=== PATIENT | female | born 1935 | race Caucasian/White ===

== ENCOUNTER 2017-07-21 11:37 | Observation (INO) ==
--- NOTE | 2017-07-21 12:03 | Emergency Department Note ---
Disposition Clinical Impression: Anemia Qualifiers: Anemia type: unspecified type Qualified Code(s): D64.9 - Anemia, unspecified GI bleed Qualifiers: GI bleed type/associated pathology: unspecified gastrointestinal hemorrhage type Qualified Code(s): K92.2 - Gastrointestinal hemorrhage, unspecified Disposition: Admitted As Inpatient Condition: Fair Time of Disposition: 16:01 GI Bleed HPI - General Chief complaint: ED Abdominal Pain Stated complaint: GI Bleed Time Seen by Provider: 07/21/17 11:47 Source: patient Limitations: no limitations Nursing Notes Reviewed: Yes Vital Signs Reviewed: Yes - History of Present Illness HPI Narrative: Mrs. Blackman, an 81yo female, presents from home [place] oncology clinic for evaluation of bright red blood in her ostomy bag. This began 4 days ago with melena and progressed gradually to now bright red blood mixed with stool. She is symptomatic with increased fatigue and mild dyspnea with exertion. She denies any other symptoms at this time. ROS: Positive: As above Negative:No chest pain, fever, chills, abdominal pain, nausea, vomiting. Complex PMH: 2012 Colon cancer 2012 high grade colononic obstruction secondary to colon cancer. Resected with ostomy placed. 201213 grade 3 breast cancer and subsequent lumpectomy with sentinel node biopsy. Partial chemo with completed radiation. Chemo stopped as it contributed to CA with stent. repeat cononoscopy revealed low lying rectal cancer. with endoscopic resection involving sphincter 05/2014 at [facility], Dr. Bee. 08/2016 ZANDER, BSO at [facility] secondary to mets of rectal cancer. 06/20/17 (TODAY) Port removed Cardiology (Dr. 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 No hx diverticulitis, gastric ulcer, duodenal ulcer. - Related Data Home Medications Medication Instructions Recorded Confirmed Cholecalciferol (Vitamin D3) 1,000 unit PO DAILY 02/13/15 07/21/17 [Vitamin D3] Cinnamon Bark [Cinnamon] 1,000 mg PO DAILY 02/13/15 07/21/17 Cyanocobalamin (Vitamin B-12) 100 mcg PO DAILY 02/13/15 07/21/17 [Vitamin B-12] Flaxseed Oil 1,000 mg PO BID 02/13/15 07/21/17 Garlic 2,000 mg PO DAILY 02/13/15 07/21/17 Lisinopril [Zestril] 2.5 mg PO DAILY 02/13/15 07/21/17 Metoprolol XL (24 HR) Succ [Toprol 100 mg PO DAILY 02/13/15 07/21/17 XL] Aspirin [Adult Low Dose Aspirin EC] 81 mg PO DAILY 06/01/15 07/21/17 Levothyroxine [Synthroid] 25 mcg PO QAM 06/01/15 07/21/17 Calcium Carbonate [Calcium] 1,200 mg PO BID 03/17/16 07/21/17 Ferrous Sulfate 140 mg PO DAILY 03/17/16 07/21/17 Vitamin A Palmitate [Vitamin A] 10,000 unit PO DAILY 03/17/16 07/21/17 Fluticasone Propionate Nasal 2 spr NS DAILY PRN 06/09/16 07/21/17 [Flonase] Guaifenesin [Mucinex] 600 mg PO BID PRN 08/30/16 07/21/17 Previous Rx's Medication Instructions Recorded Furosemide [Lasix] 20 mg PO BID #60 tablet 05/02/16 Simvastatin [Zocor] 20 mg PO HS #90 tablet 06/15/16 Clopidogrel Bisulfate [Plavix] 75 mg PO DAILY #30 tablet 12/08/16 Digoxin [Lanoxin] 0.125 mg PO DAILY #30 tablet 12/08/16 Allergies Allergy/AdvReac Type Severity Reaction Status Date / Time diazepam [From Valium] Allergy Muscle Pain Verified 07/21/17 10:03 All systems ED: reviewed and negative except as stated. Review of Systems: As Per [facility] Past Medical History - Past Medical History Medical history: Reports: arthritis, atrial fibrillation, cancer, cardiomyopathy , CHF, coronary artery disease, hypertension, myocardial infarction, thyroid disease Surgical history: Reports: angioplasty/stent, breast surgery, cancer surgery, cholecystectomy, colostomy Psychiatric history: Reports: no psych history HOSPITAL AIDE history: Reports: no HOSPITAL AIDE history - Social History Smoking Status: Never smoker Smokeless Tobacco Status: No Alcohol use: Reports: none Drug use: Reports: none Physical Exam Vital Signs Reviewed General: Patient is alert, oriented, and in no acute distress. HEENT: No facial asymmetry. Head is normocephalic and atraumatic. PERRLA, EOMI. oral mucosa tacky. Trachea midline. Cardiovascular: Heart regular rate and rhythm without clicks, rubs, gallops, or murmurs. No JVD. PMI nondisplaced. Bilateral radial pulses 2/4 equal. No pedal edema. Respiratory: Symmetric chest rise with good respiratory effort. Bilateral breath sounds are clear without wheezing, crackles, or rhonchi. Abdomen: Bowel sounds present normoactive x-4 quadrants. Abdomen is soft, nondistended, and nontender. No organomegaly noted. Ostomy site in left lower quadrant is clean, pink with bag in place. Back contents show bright red blood mixed with gastric secretions. Musculoskeletal: Spontaneously moving all extremities. Neuro: Alert and oriented x4. Sensation light touch intact. Psych: Patient's affect is appropriate for situation. - General Limitations: no limitations General appearance: alert, in no apparent distress Course Course Narrative: Last EGD was May 2016 for biliary stent removal; no comments made as to gastric or duodenal ulcers at that time. In speaking with Rubén Alfonso at the cancer center notes her tumor markers normal (breast and rectal cancer) and she is otherwise doing well from an oncology stand point. Patient is anemic and symptomatic with vital signs stable within normal range. No concern for the need for transfusion at this time. Type and screen completed. CT abdomen and pelvis show no bowel obstruction or abdominal pelvic fluid collection. I discussed the patient with on-call endoscopy, Dr. Hudson, who agrees to follow the patient as consult. I discussed the patient with the admitting hospitalist who agrees to accept the patient with endoscopy following. Abdomen/Pelvis CT 07/21/17 13:26 IMPRESSION: No findings to suggest bowel obstruction. No abdominal or pelvic fluid collection. Right renal cysts which measure up to 7.0 x 5.7 cm. Mild intrahepatic biliary dilatation centrally. Common bowel duct stent in place extending from the proximal common bowel duct into the duodenum. D/ / Radha Guillaume MD / Radha Guillaume MD Interpreting Provider: Radha Guillaume MD Vital Signs Temperature 97.6 F 07/21/17 11:39 Pulse Rate 87 07/21/17 11:39 Respiratory Rate 18 07/21/17 11:39 Blood Pressure 134/76 07/21/17 11:39 O2 Sat by Pulse Oximetry 91 07/21/17 11:39 Temperature 97.6 F 07/21/17 11:39 Pulse Rate 87 07/21/17 11:39 Respiratory Rate 18 07/21/17 11:39 Blood Pressure 134/76 07/21/17 11:39 O2 Sat by Pulse Oximetry 91 07/21/17 11:39 Oxygen Delivery Oxygen Delivery Room Air GI Bleed - Medical Records Medical records reviewed: Yes I reviewed the patient's medical records. - Lab Data Lab results reviewed: Yes I reviewed the patient's lab results. Result diagrams: 07/21/17 15:51 07/21/17 12:40 Lab Results 07/21/17 07/21/17 07/21/17 Range/Units 11:14 12:40 12:40 WBC 6.4 (4.3-11.1) K/mcL RBC 4.16 (3.82-4.97) M/mcL Hgb 10.7 L (11.5-15.4) g/dL Hct 34.7 L (35.3-44.9) % MCV 83.4 (83.0-100.0) fL MCH 25.7 L (28.0-33.3) pg MCHC 30.8 L (31.6-35.5) g/dL RDW 15.4 H (11.5-14.5) % Plt Count 189 (140-400) K/mcL MPV 10.5 (9.4-12.4) fL Immature Gran % 0.5 (0-4) % Seg Neutrophils % 79.8 % Lymphocytes % 12.4 % Monocytes % 6.5 % Eosinophils % 0.3 % Basophils % 0.5 % Neutrophils # 5.1 (1.6-8.9) K/mcL Lymphocytes # 0.8 (0.6-4.6) K/mcL Monocytes # 0.4 (0.0-1.3) K/mcL Eosinophils # 0.0 (0.0-0.6) K/mcL Basophils # 0.0 (0.0-0.2) K/mcL PT 12.0 (9.4-12.1) Seconds INR 1.1 APTT 27.6 (26.0-36.0) Seconds Sodium (136-145) mEq/L Potassium (3.5-5.1) mEq/L Chloride (98-107) mEq/L Carbon Dioxide (23-29) mEq/L BUN (8-23) mg/dL Creatinine (0.60-1.20) mg/dL Est GFR ( Amer) (> 60) Est GFR (Non-Af Amer) (> 60) BUN/Creatinine Ratio (6-26) Glucose (70-105) mg/dL Calculated Osmolality (280-300) Calcium (8.6-10.3) mg/dL Troponin I (< 0.04) ng/mL Blood Type O POSITIVE Antibody Screen NEGATIVE 07/21/17 07/21/17 Range/Units 12:40 12:40 WBC (4.3-11.1) K/mcL RBC (3.82-4.97) M/mcL Hgb (11.5-15.4) g/dL Hct (35.3-44.9) % MCV (83.0-100.0) fL MCH (28.0-33.3) pg MCHC (31.6-35.5) g/dL RDW (11.5-14.5) % Plt Count (140-400) K/mcL MPV (9.4-12.4) fL Immature Gran % (0-4) % Seg Neutrophils % % Lymphocytes % % Monocytes % % Eosinophils % % Basophils % % Neutrophils # (1.6-8.9) K/mcL Lymphocytes # (0.6-4.6) K/mcL Monocytes # (0.0-1.3) K/mcL Eosinophils # (0.0-0.6) K/mcL Basophils # (0.0-0.2) K/mcL PT (9.4-12.1) Seconds INR APTT (26.0-36.0) Seconds Sodium 137 (136-145) mEq/L Potassium 3.9 (3.5-5.1) mEq/L Chloride 102 (98-107) mEq/L Carbon Dioxide 30 H (23-29) mEq/L BUN 22 (8-23) mg/dL Creatinine 0.82 (0.60-1.20) mg/dL Est GFR ( Amer) > 60 (> 60) Est GFR (Non-Af Amer) > 60 (> 60) BUN/Creatinine Ratio 27 H (6-26) Glucose 105 (70-105) mg/dL Calculated Osmolality 288 (280-300) Calcium 8.9 (8.6-10.3) mg/dL Troponin I < 0.03 (< 0.04) ng/mL Blood Type Antibody Screen - EKG Data EKG attestation: Yes I reviewed and interpreted this EKG. EKG results narrative: EKG dated to July 2017 at 12:12 interpreted as atrial fibrillation with a rate of 65. Left axis. T-wave inversions in leads V1 through V4 present on comparison EKG. Compared to previous EKG dated 06/02/2016 showing no acute ischemic changes or comparison. Attestation Statement - Attestation Attestation: I, Christopher Thrasher, examined this patient and my medical decision-making was reviewed with the SIGN LANGUAGE TRANSLATOR/PA/Advanced Practice Nurse/Resident Physician. I agree with the documented findings, disposition and treatment plan as described except to the extent set forth below. 81-year-old female presents emergency Department with concerns of GI bleeding. Patient states she has had a complicated medical history with multiple surgeries on her abdomen including cholecystectomy with retained stone which required stenting, total abdominal hysterectomy, colon resection after finding a large tumor with bowel obstruction. Patient has noticed increasing amounts of dark stool in her ostomy pouch which then progressed to bright red blood. Patient is more anemic than her previous laboratory values. Resident spoke with the endoscopist, Dr. Hudson, who felt comfortable with the plan for admission to the hospital and likely endoscopy. Patient was admitted to the hospitalist for further care and evaluation. Vital signs stable prior to admission.
[2017-07-21 12:50] LABS: Basophils % 0.5 %; Eosinophils % 0.3 %; Hematocrit 34.7 % (35.3-44.9); Hemoglobin 10.7 g/dL (11.5-15.4); Immature Granulocytes % 0.5 % (0-4); Lymphocytes # 0.8 K/mcL (0.6-4.6); Lymphocytes % 12.4 %; Mean Corpuscular HGB Conc 30.8 g/dL (31.6-35.5); Mean Corpuscular Hemoglobin 25.7 pg (28.0-33.3); Mean Corpuscular Volume 83.4 fL (83.0-100.0); Mean Platelet Volume 10.5 fL (9.4-12.4); Monocytes # 0.4 K/mcL (0.0-1.3); Monocytes % 6.5 %; Neutrophils # 5.1 K/mcL (1.6-8.9); Platelet Count 189 K/mcL (140-400); Red Blood Count 4.16 M/mcL (3.82-4.97); Red Cell Distribution Width 15.4 % (11.5-14.5); Segmented Neutrophils % 79.8 %
[2017-07-21 12:55] LABS: INR 1.1
[2017-07-21] MEDS: Pantoprazole 40 MG VIAL IVP ONE ×2 (12:55→16:39)
[2017-07-21 12:58] LABS: Activated Partial Thrombo Time 27.6 Seconds (26.0-36.0)
[2017-07-21 13:12] LABS: BUN/Creatinine Ratio 27 (6-26); Blood Urea Nitrogen 22 mg/dL (8-23); Calcium 8.9 mg/dL (8.6-10.3); Carbon Dioxide 30 mEq/L (23-29); Chloride 102 mEq/L (98-107); Glucose 105 mg/dL (70-105); Osmolality,Calculated 288 (280-300); Potassium 3.9 mEq/L (3.5-5.1); Sodium 137 mEq/L (136-145); eGFR For African Americans > 60 (> 60); eGFR For Non-African Americans > 60 (> 60)
[2017-07-21] MEDS ORDERED: Acetaminophen 325 MG TABLET PO PRN (15:12)
[2017-07-21] MEDS ORDERED: Naloxone 0.4 MG/ML INJ IVP PRN (15:12)
[2017-07-21] MEDS ORDERED: Fluticasone Propionate Nasal 50 MCG/SPRAY BOTTLE NS PRN (15:22)
--- NOTE | 2017-07-21 15:34 | Internal Med History&Physical ---
Date of Encounter: 07/21/17 Time of Encounter: 14:15 Assessment and Plan (1) GI bleed Current visit: Yes Status: Acute Acute GI bleeding that began on Monday and has worsened. Pt. reports primarily dark blood early on w/bright blood now. Denies previous occurrence. Pt. has hx of colon and rectal cancer that resulted in current ostomy bag and removal of rectum, anus, and female organs. Cancer considered resolved according to pt. and daughter. Hgb 11.5 and Hct 36.1 on admission, now 10.7 and 34.7. Was 13.7 and 42.6 on 06/27/17. Surgery consult ordered and discussed w/Dr. Hudson in ED and I appreciate the consult. Pt. typed and screened (O positive w/negative antibody screen). H/H Q6HR. NPO except medications. Falls/safety precautions d/ t weakness. Continuous cardiac telemetry. Supplemental O2 w/titration and SpO2 monitoring PRN. Cardiology consult ordered and discussed with Dr. Pichardo for recommendations for continuation/discontinuation of pts. Plavix and aspirin and I appreciate the consult. Bilateral SCDs on LEs for DVT prophylaxis. Protonix drip. Pt. discussed w/Dr. Silva who is in agreement w/plan of care. Pt. high risk for further morbidity d/t current GI bleeding, weakness, hx and risk factors of cardiac-related issues and previous cancer. Inpatient. Qualifiers: GI bleed type/associated pathology: unspecified gastrointestinal hemorrhage type Qualified Code(s): K92.2 - Gastrointestinal hemorrhage, unspecified (2) Fatigue Current visit: Yes Status: Acute Acute fatigue and weakness d/t current blood loss. Hgb 10.7 and Hct 34.7 now, down from 11.5 and 36.1 earlier on admission today. Falls/safety precautions, up with assist, and bed rest w/bathroom privileges w/assist only. PT/OT consults ordered to assess patient's ambulation strength, stability, and safety. Qualifiers: Fatigue type: other Qualified Code(s): R53.83 - Other fatigue (3) Renal cyst Current visit: Yes Status: Acute Acute renal cyst. CT of the abdomen/pelvis today shows right renal cysts which measure up to 7.0 x 5.7 cm. F/u w/PCP post-discharge. (4) Anemia Current visit: Yes Status: Acute Acute anemia. Hgb 10.7 and Hct 34.7 now, down from 11.5 and 36.1 today and 13.7 and 42.6 on 06/27/17. Pt. typed and screened (O Positive w/negative antibody screen). H/H Q6HR. Qualifiers: Anemia type: unspecified type Qualified Code(s): D64.9 - Anemia, unspecified (5) CHF (congestive heart failure) Current visit: Yes Status: Chronic Hx of chronic CHF. Stable. Qualifiers: Congestive heart failure type: unspecified Congestive heart failure chronicity: unspecified Qualified Code(s): I50.9 - Heart failure, unspecified (6) CAD (coronary artery disease) Current visit: Yes Status: Chronic Hx of chronic CAD w/MA in 2013 resulting in stent placement x1. Continue lisinopril, metoprolol, and Plavix. Continue cardiac telemetry. Cardiology consult ordered for recommendations on pts. current Plavix and aspirin therapy d /t current bleeding. Qualifiers: Coronary Disease-Associated Artery/Lesion type: [place] artery [place] vs. transplanted heart: [place] heart Associated angina: angina presence unspecified Qualified Code(s): I25.10 - Atherosclerotic heart disease of [place] coronary artery without angina pectoris (7) HTN (hypertension) Current visit: Yes Status: Chronic Hx of chronic HTN. Monitor pt. and VS. Continue patient's lisinopril and metoprolol. Qualifiers: Hypertension type: essential hypertension Qualified Code(s): I10 - Essential (primary) hypertension (8) Thyroid disease Current visit: Yes Status: Chronic Hx of chronic thyroid disease. Free T4 and TSH in a.m. labs. Continue pts. Synthroid. (9) Afib Current visit: Yes Status: Chronic Hx of chronic atrial fibrillation. Pt. is currently only on aspirin. Will continue daily aspirin and monitor for increased bleeding. Continuous cardiac telemetry. Qualifiers: Atrial fibrillation type: chronic Qualified Code(s): I48.2 - Chronic atrial fibrillation (10) DVT prophylaxis Current visit: Yes Status: Acute Bilateral SCDs on pts. LEs for DVT prophylaxis d/t current GI bleeding and possible need for surgical intervention. Internal Medicine - H&P: HPI Chief complaint: Abdominal pain/GI bleeding Admitted From: Emergency Dept Plans for Post Hospital Care: Home History of present illness: Ms. Blackman is a 81 year old female with a history of atrial fibrillation, colon and rectal cancer, cardiomyopathy, CHF, CAD and hypertension, previous myocardial infarction in February 2014 with stent 1, and thyroid disease presents from the ED with chief complaint of abdominal pain and GI bleeding that began on Monday. Pt. reports small amount of dark blood on Monday which became worse on Monday and . Blood became brighter with more output mixed with stool today. Reports weakness and fatigue and shortness of breath. Patient denies recent illness, fever, chills, nausea, vomiting, headache, changes in vision, chest pain, cough, diarrhea, constipation, numbness, tingling , pre-syncope, or syncope. Past Med Surg Social Fam HX - Past Medical History Source: patient, old records reviewed, obtained from family Medical history: arthritis, atrial fibrillation, cancer, cardiomyopathy, CHF, coronary artery disease, hypertension, myocardial infarction (February 2014), thyroid disease Psychiatric history: no psych history - Past Surgical History Surgical History: angioplasty/stent (x1), breast surgery (Lumpectomy on right breast and right axilla), cancer surgery (Rectum, anus, and femur were considered removed at [facility] due to rectal cancer.), cholecystectomy, colostomy - Social History Smoking Status: Former smoker Packs per day: 1 PPD - Reports quitting 30 years ago Smokeless Tobacco Status: No Alcohol use: none Drug use: none Current living situation: Home, With Family Activity Level: Independent ambulation Recent Out of Country Travel Within the Last 8 Weeks: No Exposure or Possible Exposure to Illness During Travel: No - Family History Mother Race: Family Member Ethnicity: Non- Living Status: Age at : 80 Cause of : Bleeding internally Hx Family Cardiac Disorders: Yes (CHF) Hx Family Endocrine Disorder: Yes (Thyroid disease) Father Race: Family Member Ethnicity: Non- Living Status: Age at : 76 Cause of : Stroke Hx Family Cardiac Disorders: Yes (CAD, Strokes) Brother Race: Family Member Ethnicity: Non- Living Status: Age at : 79 Cause of : MA Hx Family Cardiac Disorders: Yes (MA, AICD) Sister History Unknown: Yes Race: Family Member Ethnicity: Non- Living Status: Internal Medicine - H&P: Meds Cholecalciferol (Vitamin D3) [Vitamin D3] 1,000 unit PO DAILY 02/13/15 [History] Cinnamon Bark [Cinnamon] 1,000 mg PO DAILY 02/13/15 [History] Cyanocobalamin (Vitamin B-12) [Vitamin B-12] 100 mcg PO DAILY 02/13/15 [History] Flaxseed Oil 1,000 mg PO BID 02/13/15 [History] Garlic 2,000 mg PO DAILY 02/13/15 [History] Lisinopril [Zestril] 2.5 mg PO DAILY 02/13/15 [History] Metoprolol XL (24 HR) Succ [Toprol XL] 100 mg PO DAILY 02/13/15 [History] Aspirin [Adult Low Dose Aspirin EC] 81 mg PO DAILY 06/01/15 [History] Levothyroxine [Synthroid] 25 mcg PO QAM 06/01/15 [History] Calcium Carbonate [Calcium] 1,200 mg PO BID 03/17/16 [History] Ferrous Sulfate 140 mg PO DAILY 03/17/16 [History] Vitamin A Palmitate [Vitamin A] 10,000 unit PO DAILY 03/17/16 [History] Furosemide [Lasix] 20 mg PO BID #60 tablet 05/02/16 [Rx] Fluticasone Propionate Nasal [Flonase] 2 spr NS DAILY PRN 06/09/16 [History] Simvastatin [Zocor] 20 mg PO HS #90 tablet 06/15/16 [Rx] Guaifenesin [Mucinex] 600 mg PO BID PRN 08/30/16 [History] Clopidogrel Bisulfate [Plavix] 75 mg PO DAILY #30 tablet 12/08/16 [Rx] Digoxin [Lanoxin] 0.125 mg PO DAILY #30 tablet 12/08/16 [Rx] 3 Allergy/AdvReac Type Severity Reaction Status Date / Time diazepam [From Valium] Allergy Muscle Pain Verified 07/21/17 10:03 All Systems PM: A 10-system review of systems was performed and is negative for pertinent findings except as documented above in the HPI. - Constitutional Constitutional: as per HPI, fatigue, weakness, no chills, no fever(s), no night sweats - EENT Eyes: no change in vision, no discharge, no pain, no photophobia Ears: no ear discharge, no ear pain, no tinnitus Nose, mouth and throat: no dysphagia, no nasal discharge, no neck pain, no sore throat - Breasts Breasts: as per HPI - Cardiovascular Cardiovascular ROS IM: as per HPI, dyspnea, dyspnea on exertion, irregular heart rhythm (Atrial fibrillation), no chest pain, no diaphoresis, no lightheadedness, no palpitations, no syncope - Respiratory Respiratory: as per HPI, dyspnea, dyspnea on exertion, no cough, no wheezing, no excessive phlegm production - Gastrointestinal Gastrointestinal: as per HPI, abdominal pain, hematochezia - Genitourinary Genitourinary: no change in urinary stream, no dysuria, no flank pain, no hematuria Menstruation: as per HPI - Musculoskeletal Musculoskeletal ROS IM: no numbness, no tingling - Integumentary Integumentary IM: no rash, no unusual bruising - Neurological Neurological ROS: as per HPI, dizziness, weakness, no confusion, no convulsions , no focal weakness, no numbness, no tingling, no tremor(s) - Psychiatric Psychiatric: as per HPI - Endocrine Endocrine IM: as per HPI - Hematologic/Lymphatic Hematologic/Lymphatic: easy bleeding (Since Monday into ostomy bag), no easy bruising - Allergic/Immunologic Allergic/Immunologic: as per HPI - Constitutional Vitals: Temp Pulse Resp BP Pulse Ox 97.6 F 87 18 134/76 91 07/21/17 11:39 07/21/17 11:39 07/21/17 11:39 07/21/17 11:39 07/21/17 11:39 General appearance: Present: cooperative, A&O X 3, pleasant, no acute distress, obese, answers questions appropriately - Head Head exam: Present: atraumatic, normocephalic - Eye Eye exam: Present: PERRL, conjuntiva pink, sclera anicteric Pupils: Present: PERRL - ENT ENT exam: Present: normal exam - Neck Neck exam general surgery: Present: normal inspection, supple, trachea midline. Absent: lymphadenopathy - Respiratory Respiratory exam: Present: CTAB. Absent: accessory muscle use, rales, rhonchi, wheezes - Cardiovascular Cardiovascular exam: Present: irregular rhythm (Atrial fibrillation) - GI/Abdominal GI/Abdominal exam: Present: normal bowel sounds, soft, tenderness, no peritoneal signs. Absent: distended - Rectal Rectal exam: Present: deferred - Additional comments: exam deferred. - Extremities Exam Extremities exam: Present: warm, radial pulses palpable and symmetrical. Absent : calf tenderness, cyanotic, pedal edema - Back Exam Back exam: Present: normal inspection - Neurological Exam Neurological exam: Present: CN II-XII intact, oriented X3, no focal deficits. Absent: pronater drift, facial droop, speech deficit - Psychiatric Psychiatric exam: Present: normal affect, normal mood - Skin Skin exam: Present: dry, intact, pallor Internal Med - H&P Results - Labs CBC & Chem 7: 07/21/17 15:51 07/21/17 12:40 - EKG Data Prior EKG available for review: yes When compared to previous EKG: there is no significant change EKG comments: 07/21/17 15:43 EKG dated 06/02/16 shows atrial fibrillation with aberrant conduction or ventricular premature complexes, left axis deviation, and right bundle branch block. EKG dated 07/21/17 shows atrial fibrillation with borderline left axis deviation and right bundle branch block. - Diagnostic Studies CT scan - pelvis Additional comments: Impressions Abdomen/Pelvis CT 07/21/17 13:26 IMPRESSION: No findings to suggest bowel obstruction. No abdominal or pelvic fluid collection. Right renal cysts which measure up to 7.0 x 5.7 cm. Mild intrahepatic biliary dilatation centrally. Common bowel duct stent in place extending from the proximal common bowel duct into the duodenum. D/ / Radha Guillaume MD / Radha Guillaume MD Interpreting Provider: Radha Guillaume MD
[2017-07-21 16:03] LABS: Hematocrit 34.5 % (35.3-44.9); Hemoglobin 10.9 g/dL (11.5-15.4)
[2017-07-21] MEDS ORDERED: Polyethylene Glycol 3350 255 GM POWDER PO ONE (16:17)
--- NOTE | 2017-07-21 16:23 | General Surgery Consult Note ---
Date of Encounter: 07/21/17 Time of Encounter: 16:00 Assessment and Plan (1) GI bleed Current Visit: Yes Status: Acute The patient had visible bleeding that turned to melena via the colostomy. She is currently on Plavix therapy she has no complaints of abdominal pain. I have recommended EGD and colonoscopy via the ostomy and we will proceed tomorrow after bowel prep. Qualifiers: GI bleed type/associated pathology: unspecified gastrointestinal hemorrhage type Qualified Code(s): K92.2 - Gastrointestinal hemorrhage, unspecified History of Present Illness Consult date: 07/21/17 Reason for consult: other (GI bleed) History of present illness: The patient has a complex oncology history. She has previously had successful treatment of triple negative breast cancer. She is also had very complex treatment of multicentric metachronous colorectal cancer. She had initial resection there was a T3 node negative tumor with an end colostomy. 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 This was initially treated with local excision but recurred a second time. She had a redo abdominal perineal resection along with total abdominal hysterectomy for this secondary rectal cancer. She has had myocardial infarction and coronary artery stent and is currently on Plavix. Her last coronary artery stent was 3 and half years ago. She now has developed melena from her colostomy bag. She initially noted bright red blood in this later became melanotic. She is admitted for evaluation of GI bleed on Plavix therapy. She is now more than 12 months out from her coronary artery stent in at be safe to stop her Plavix. Past Med Surg Social Fam HX - Past Medical History Medical history: arthritis, atrial fibrillation, cancer, cardiomyopathy, CHF, coronary artery disease, hypertension, myocardial infarction (February 2014), thyroid disease Psychiatric history: no psych history - Past Surgical History Surgical History: angioplasty/stent (x1), breast surgery (Lumpectomy on right breast and right axilla), cancer surgery (Rectum, anus, and femur were considered removed at [facility] due to rectal cancer.), cholecystectomy, colostomy - Social History Smoking Status: Former smoker Packs per day: 1 PPD - Reports quitting 30 years ago Smokeless Tobacco Status: No Alcohol use: none Drug use: none - Family History Brother Race: Family Member Ethnicity: Non- Living Status: Age at : 79 Cause of : PR Hx Family Cardiac Disorders: Yes (PR, AICD) Sister History Unknown: Yes Race: Family Member Ethnicity: Non- Living Status: Mother Race: Family Member Ethnicity: Non- Living Status: Age at : 80 Cause of : Bleeding internally Hx Family Cardiac Disorders: Yes (CHF) Hx Family Endocrine Disorder: Yes (Thyroid disease) Father Race: Family Member Ethnicity: Non- Living Status: Age at : 76 Cause of : Stroke Hx Family Cardiac Disorders: Yes (CAD, Strokes) Medications and Allergies Cholecalciferol (Vitamin D3) [Vitamin D3] 1,000 unit PO DAILY 02/13/15 [History] Cinnamon Bark [Cinnamon] 1,000 mg PO DAILY 02/13/15 [History] Cyanocobalamin (Vitamin B-12) [Vitamin B-12] 100 mcg PO DAILY 02/13/15 [History] Flaxseed Oil 1,000 mg PO BID 02/13/15 [History] Garlic 2,000 mg PO DAILY 02/13/15 [History] Lisinopril [Zestril] 2.5 mg PO DAILY 02/13/15 [History] Metoprolol XL (24 HR) Succ [Toprol XL] 100 mg PO DAILY 02/13/15 [History] Aspirin [Adult Low Dose Aspirin EC] 81 mg PO DAILY 06/01/15 [History] Levothyroxine [Synthroid] 25 mcg PO QAM 06/01/15 [History] Calcium Carbonate [Calcium] 1,200 mg PO BID 03/17/16 [History] Ferrous Sulfate 140 mg PO DAILY 03/17/16 [History] Vitamin A Palmitate [Vitamin A] 10,000 unit PO DAILY 03/17/16 [History] Furosemide [Lasix] 20 mg PO BID #60 tablet 05/02/16 [Rx] Fluticasone Propionate Nasal [Flonase] 2 spr NS DAILY PRN 06/09/16 [History] Simvastatin [Zocor] 20 mg PO HS #90 tablet 06/15/16 [Rx] Guaifenesin [Mucinex] 600 mg PO BID PRN 08/30/16 [History] Clopidogrel Bisulfate [Plavix] 75 mg PO DAILY #30 tablet 12/08/16 [Rx] Digoxin [Lanoxin] 0.125 mg PO DAILY #30 tablet 12/08/16 [Rx] 3 Allergy/AdvReac Type Severity Reaction Status Date / Time diazepam [From Valium] Allergy Muscle Pain Verified 07/21/17 10:03 Review of Systems All systems PM: A 10-system review of systems was performed and is negative for pertinent findings except as documented above in the HPI. General Surgery Exam Initial Vital Signs Temp Pulse Resp BP Pulse Ox 97.6 F 87 18 134/76 91 07/21/17 11:39 07/21/17 11:39 07/21/17 11:39 07/21/17 11:39 07/21/17 11:39 - General physical appearance well developed, well nourished, no distress - Neck no masses, no bruits, trachea midline, no lymphadectomy, no venous distension - Respiratory normal expansion, normal respiratory effort, clear to percussion, clear to auscultation - Cardiovascular Cardiovascular exam: Present: RRR, no murmurs/rubs/gallops - Abdomen Abdomen general surgery: Present: bowel sounds present, soft (Colostomy left upper quadrant), non tender - Psychiatric Psychiatric general surgery: Present: appropriate, oriented to person, oriented to place, oriented to time, speech is normal, memory intact Exam Initial Vital Signs Temp Pulse Resp BP Pulse Ox 97.6 F 87 18 134/76 91 07/21/17 11:39 07/21/17 11:39 07/21/17 11:39 07/21/17 11:39 07/21/17 11:39 Results - Labs 07/21/17 15:51 07/21/17 12:40 Abnormal lab results Hgb 10.9 g/dL (11.5-15.4) L 07/21/17 15:51 Hct 34.5 % (35.3-44.9) L 07/21/17 15:51 MCH 25.7 pg (28.0-33.3) L 07/21/17 12:40 MCHC 30.8 g/dL (31.6-35.5) L 07/21/17 12:40 RDW 15.4 % (11.5-14.5) H 07/21/17 12:40 Carbon Dioxide 30 mEq/L (23-29) H 07/21/17 12:40 BUN/Creatinine Ratio 27 (6-26) H 07/21/17 12:40 All other labs normal. Consult Discharge Plan - Plan Referrals: Amarilis Chi MD [Primary Care Provider] -
[2017-07-21] MEDS: Furosemide 20 MG TABLET PO SCH (17:48)
[2017-07-21] MEDS: Pantoprazole 40 MG in 0.9 % Sodium Chloride Mini Bag 100 ML IVC SCH ×2 (17:49→21:46)
--- NOTE | 2017-07-21 20:57 | Event Note ---
Date of Encounter: 07/21/17 Time of Encounter: 17:00 Discussed with BRIDGET and agree with assessment and plan Patient noted melena from her colostomy bag that was initially bright red blood Dr. Hudson consulted with recommendations for EGD and colonoscopy via the ostomy on 07/22/17
[2017-07-21 21:13] LABS: Hematocrit 36.1 % (35.3-44.9); Hemoglobin 11.5 g/dL (11.5-15.4)
[2017-07-22] MEDS: Pantoprazole 40 MG in 0.9 % Sodium Chloride Mini Bag 100 ML IVC SCH ×4 (03:23→20:25)
[2017-07-22 05:59] LABS: Basophils % 0.3 %; Eosinophils # 0.2 K/mcL (0.0-0.6); Hematocrit 32.7 % (35.3-44.9); Hemoglobin 10.1 g/dL (11.5-15.4); Immature Granulocytes % 0.3 % (0-4); Lymphocytes # 1.2 K/mcL (0.6-4.6); Lymphocytes % 19.3 %; Mean Corpuscular HGB Conc 30.9 g/dL (31.6-35.5); Mean Corpuscular Hemoglobin 25.7 pg (28.0-33.3); Mean Corpuscular Volume 83.2 fL (83.0-100.0); Mean Platelet Volume 10.8 fL (9.4-12.4); Monocytes # 0.6 K/mcL (0.0-1.3); Monocytes % 8.7 %; Neutrophils # 4.3 K/mcL (1.6-8.9); Platelet Count 179 K/mcL (140-400); Red Blood Count 3.93 M/mcL (3.82-4.97); Red Cell Distribution Width 15.4 % (11.5-14.5); Segmented Neutrophils % 68.4 %
[2017-07-22 06:07] LABS: Hemoglobin A1C 5.1 %
[2017-07-22 06:08] LABS: INR 1.1; Prothrombin Time 11.8 Seconds (9.4-12.1)
[2017-07-22 06:10] LABS: Activated Partial Thrombo Time 27.8 Seconds (26.0-36.0)
[2017-07-22 06:21] LABS: Alanine Aminotransferase 8 Units/L (7-52); Albumin 3.4 g/dL (3.5-5.7); Albumin/Globulin Ratio 1.8 (1.1-2.2); Alkaline Phosphatase 39 Units/L (34-104); Aspartate Amino Transferase 11 Units/L (13-39); BUN/Creatinine Ratio 19 (6-26); Bilirubin,Total 0.6 mg/dL (0.3-1.0); Blood Urea Nitrogen 14 mg/dL (8-23); Calcium 8.3 mg/dL (8.6-10.3); Carbon Dioxide 31 mEq/L (23-29); Chloride 108 mEq/L (98-107); Chol/HDL Ratio 2.7 (0-4.9); Cholesterol 108 mg/dL (< 200); Globulin 1.9 g/dL (2.4-3.5); Glucose 93 mg/dL (70-105); HDL Cholesterol 40 mg/dL (40-59); LDL Cholesterol,Calculated 45 mg/dL (0-99); Osmolality,Calculated 294 (280-300); Potassium 3.4 mEq/L (3.5-5.1); Sodium 142 mEq/L (136-145); Total Protein 5.3 g/dL (6.4-8.9); Triglycerides 116 mg/dL (< 150); eGFR For African Americans > 60 (> 60); eGFR For Non-African Americans > 60 (> 60)
[2017-07-22 06:28] LABS: Thyroid Stimulating Hormone 6.808 mcIU/mL (0.340-5.600)
[2017-07-22] MEDS: Levothyroxine 25 MCG TABLET PO SCH (06:29)
[2017-07-22] MEDS: Furosemide 20 MG TABLET PO SCH ×2 (08:04→16:22)
[2017-07-22] MEDS: Cholecalciferol (D-3) 1,000 UNIT TABLET PO SCH (08:04)
[2017-07-22] MEDS: CYANOCOBALAMIN 100 MCG PO SCH (08:04)
[2017-07-22] MEDS: *HR* Digoxin 0.125 MG TABLET PO SCH (08:15)
[2017-07-22] MEDS: Metoprolol XL (24 HR) Succ 50 MG TAB.ER.24H PO SCH (08:15)
[2017-07-22] MEDS ORDERED: *HR* FentaNYL (PF) 100 MCG/2 ML VIAL IVP ONE (08:56)
[2017-07-22] MEDS ORDERED: *HR* Midazolam HCl 2 MG/2 ML VIAL IVP ONE (08:56)
[2017-07-22] MEDS ORDERED: Tetracaine/Benzocaine/Butamben 200MG/SPRAY (100SPY/BOT) MM ONE (08:56)
[2017-07-22] MEDS ORDERED: Simethicone 40 MG/0.6 ML MLS IR ONE (08:56)
[2017-07-22] MEDS ORDERED: *HR* Midazolam HCl 5 MG/5 ML VIAL IVP ONE (08:57)
[2017-07-22] MEDS ORDERED: *HR* FentaNYL (PF) 100 MCG/2 ML VIAL ONE (08:57)
--- NOTE | 2017-07-22 08:59 | Pre-Sedation Evaluation ---
Pre-sedation evaluation - Pre-sedation checklist Date of procedure: 07/22/17 Procedure: EGD Colonoscopy Recent Vitals: Last Vital Signs Temp 97.7 F 07/22/17 06:48 Pulse 79 07/22/17 06:48 Resp 15 07/22/17 06:48 BP 117/69 07/22/17 06:48 Pulse Ox 96 07/22/17 06:48 H&P (including ROS) documented in medical record: Yes Previous reaction to sedatives/anesthetics: No Dietary Status: NPO after Midnight Dentition: No loose teeth or bridges Possible difficult airway: No If Yes;: History of difficult intubation ASA Classification *see protocol: CLASS III-Severe systemic disease Plan of Care: Pt appropriate candidate for procedure/moderate/conscious sedation , Risks/benefits of procedure/sedation discussed w/ patient/family
[2017-07-22] MEDS ORDERED: Aspirin Enteric Coated 81 MG Tablet PO SCH (09:00)
[2017-07-22] MEDS ORDERED: 0.9 % Sodium Chloride 1,000 ML IVC SCH (09:00)
[2017-07-22] MEDS ORDERED: Potassium Chloride 20 MEQ, Lidocaine 1% 2 ML in D5% in Water 250 ML IVPB ONE (09:03)
--- NOTE | 2017-07-22 13:41 | Cardiology Consult Note ---
<Ji Underwood R - Last Filed: 07/22/17 14:25> Date of Encounter: 07/22/17 Time of Encounter: 13:39 Assessment and Plan (1) GI bleed Current Visit: Yes Status: Acute Presented with chief complaint of abdominal pain and GI bleeding that began on Monday, blood noted in colostomy. Surgery following. HGB mildly decreased 10.1. Hx of CAD with PCI in 2013. No recent PCI in the past year. Pt was on ASA and Plavix, ASA has been stopped since admission and currently on Plavix daily. If ASA and/or Plavix need to be stopped, it is safe from cardiac perspective given no recent PCI. Per pt, she prefers to be left on one of these agents, but will defer to GI. If able, should be on ASA or Plavix given her CAD hx and A-Fib, but does not need to be on both in setting of GI bleed. Echo 2013 EF preserved. Anticipate sign off from cardiology standpoint once seen and examined by Dr. Christopher Pichardo. 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 Christopher Pichardo as outpt with plans for PPM once port site heals. Nonurgent and can continued to be followed as outpt. HR stable currently. (3) Afib Current Visit: Yes Status: Chronic Known A-Fib. Rate controlled on BB and Digoxin. Currently on Plavix only for anticoagulation. Was not on full anticoagulation previously and will not start given presentation of GI bleeding. [id number] ( Age, Female, HTN, CAD). High risk of CVA, but currently risks outweight benefits in setting of GI bleed. (4) CAD (coronary artery disease) Current Visit: Yes Status: Chronic Hx of PCI in 2013. Pt denies chest pain. Currently on Plavix, Statin, BB. ASA was stopped due to GI bleed. Discussion w patient/family: The assessment and plan as outlined above was discussed with the patient and/or family members who expressed understanding and agreement. All questions were answered. Thank you for involving us in the care of your patient. Please call with any questions. I will discuss all the above with Dr. Christopher Pichardo and make changes as necessary. History of Present Illness Consult date: 07/22/17 Requesting physician: Juno Silva Consult reason: GI bleed, recommendations on ASA and Plavix Chief complaint: bleeding History of present illness: Ms. Blackman is a 81 year old female with a history of atrial fibrillation on ASA and Plavix, colon and rectal cancer s/p colostomy, tachy jolie syndrome, cardiomyopathy and CHF since resolved, HTN, CAD with previous myocardial infarction in February 2014 with stent 1 to LAD, and thyroid disease presented to the ED with chief complaint of abdominal pain and GI bleeding that began on Monday, blood noted in colostomy. Pt. reports small amount of dark blood on Monday which became worse on Monday and . Blood became brighter with more output mixed with stool today. Reports weakness and fatigue and shortness of breath. She denies chest pain. She is on ASA and Plavix, cardiology consulted for recommendations. Prior CV testing: Holter 03/2017: 1.) Atrial fibrillation was present throughout the recording time. Average ventricular rate was 69 bpm. Heart rate range was 32-161 bpm. 2.) Occasional PVCs. 3.) Frequent short pauses were noted. The longest pause was 2.4 seconds. 4.) There was 1 diary entry. It correlated with atrial fibrillation with ventricular rate in the 70's. Echo 2013 LVEF 60%. Normal left ventricular size and systolic function. Normal right ventricular size and function. Past Med Surg Social Fam HX - Past Medical History Medical history: arthritis, atrial fibrillation, cancer, cardiomyopathy, CHF, coronary artery disease, hypertension, myocardial infarction, thyroid disease Psychiatric history: no psych history - Past Surgical History Surgical History: angioplasty/stent, breast surgery, cancer surgery, cholecystectomy, colostomy - Social History Smoking Status: Never smoker Packs per day: 1 PPD - Reports quitting 30 years ago Smokeless Tobacco Status: No Alcohol use: none Drug use: none - Family History Brother Race: Family Member Ethnicity: Non- Living Status: Age at : 79 Cause of : ID Hx Family Cardiac Disorders: Yes (ID, AICD) Sister History Unknown: Yes Race: Family Member Ethnicity: Non- Living Status: Mother Race: Family Member Ethnicity: Non- Living Status: Age at : 80 Cause of : Bleeding internally Hx Family Cardiac Disorders: Yes (CHF) Hx Family Endocrine Disorder: Yes (Thyroid disease) Father Race: Family Member Ethnicity: Non- Living Status: Age at : 76 Cause of : Stroke Hx Family Cardiac Disorders: Yes (CAD, Strokes) Medications and Allergies Cholecalciferol (Vitamin D3) [Vitamin D3] 1,000 unit PO DAILY 02/13/15 [History] Cinnamon Bark [Cinnamon] 1,000 mg PO DAILY 02/13/15 [History] Cyanocobalamin (Vitamin B-12) [Vitamin B-12] 100 mcg PO DAILY 02/13/15 [History] Flaxseed Oil 1,000 mg PO BID 02/13/15 [History] Garlic 2,000 mg PO DAILY 02/13/15 [History] Lisinopril [Zestril] 2.5 mg PO DAILY 02/13/15 [History] Metoprolol XL (24 HR) Succ [Toprol XL] 100 mg PO DAILY 02/13/15 [History] Aspirin [Adult Low Dose Aspirin EC] 81 mg PO DAILY 06/01/15 [History] Levothyroxine [Synthroid] 25 mcg PO QAM 06/01/15 [History] Calcium Carbonate [Calcium] 1,200 mg PO BID 03/17/16 [History] Ferrous Sulfate 140 mg PO DAILY 03/17/16 [History] Vitamin A Palmitate [Vitamin A] 10,000 unit PO DAILY 03/17/16 [History] Furosemide [Lasix] 20 mg PO BID #60 tablet 05/02/16 [Rx] Fluticasone Propionate Nasal [Flonase] 2 spr NS DAILY PRN 06/09/16 [History] Simvastatin [Zocor] 20 mg PO HS #90 tablet 06/15/16 [Rx] Guaifenesin [Mucinex] 600 mg PO BID PRN 08/30/16 [History] Clopidogrel Bisulfate [Plavix] 75 mg PO DAILY #30 tablet 12/08/16 [Rx] Digoxin [Lanoxin] 0.125 mg PO DAILY #30 tablet 12/08/16 [Rx] 3 Allergy/AdvReac Type Severity Reaction Status Date / Time diazepam [From Valium] Allergy Muscle Pain Verified 07/21/17 10:03 All Systems Review: A 10-system review of systems was performed and is negative for pertinent findings except as documented above in the HPI. - Constitutional Constitutional: fatigue - Cardiovascular Cardiovascular: as per HPI, dyspnea at rest, dyspnea on exertion - Respiratory Respiratory: dyspnea - Gastrointestinal Gastrointestinal: abdominal pain Physical Examination Vital Signs, Last 4 Hours Temp Pulse Resp BP Pulse Ox 07/22/17 10:22 97.6 F 73 16 100/67 99 07/22/17 09:52 79 14 123/73 99 07/22/17 09:47 83 16 125/67 99 07/22/17 09:42 76 16 144/68 99 Vital Signs Temp Pulse Resp BP Pulse Ox 07/22/17 10:22 97.6 F 73 16 100/67 99 07/22/17 09:52 79 14 123/73 99 07/22/17 09:47 83 16 125/67 99 07/22/17 09:42 76 16 144/68 99 07/22/17 09:37 66 14 119/78 98 07/22/17 09:32 83 16 157/73 99 07/22/17 09:27 86 14 145/89 99 07/22/17 09:22 91 14 160/82 98 07/22/17 09:17 85 18 149/74 99 07/22/17 09:12 97.7 F 79 15 117/69 96 07/22/17 06:48 97.7 F 79 15 117/69 96 07/22/17 03:34 97.7 F 77 15 114/67 98 07/22/17 00:00 97.9 F 68 14 110/67 98 07/21/17 21:50 91 07/21/17 19:37 97.5 F L 73 14 116/74 91 Intake and Output 07/21/17 07/22/17 07/22/17 23:59 07:59 15:59 Intake Total 420 / 420 100 / 100 550 / 550 Output Total 550 / 550 1275 / 1275 Balance -130 / -130 -1175 / -1175 550 / 550 Intake: IV Fluids 100 / 100 100 / 100 550 / 550 0.9 % Sodium Chloride 1,000 ML 400 / 400 @ 50 mls/hr IVC .Q20H SABRA Rx#: [id number] Protonix 40 MG In 0.9 % Sodium 100 / 100 100 / 100 150 / 150 Chloride (Mini-Bag +) 100 ML @ 20 mls/hr IVC .Q5H SABRA Rx#: [id number] Oral 320 / 320 0 / 0 Output: Urine 0 / 0 0 / 0 Stool 550 / 550 1275 / 1275 Other: Meal Dinner Percent of Meal Consumed 80% Stool Size Large Large Stool Consistency loose liquid liquid Stool Color Brown Dark Red Blood Blood Tinged Blood Tinged # Voids 1 1 2 Weight 76.65 kg Blood Glucose* 88 88 Patient Weight 07/22/17 23:59 Weight 76.65 kg General: Conversant, No Apparent Distress HEENT: Atraumatic, Normocephaly, Mucus Membranes Moist Neck: No JVD, Normal carotid pulses Cardiac: Other (irregularly irregular) Lungs: Normal Breath Sounds, No Wheeze, Rales, Rhonchi Neuro: Alert and responsive, No focal deficits noted Abdomen: Soft, Non-Tender Skin: No rashes noted on visualized skin Musculoskeletal: No Chest Wall Tenderness Extremities: No Clubbing, No Cyanosis, No Edema, Normal Pulses Results 07/22/17 05:34 07/22/17 05:34 Lab Results 07/21/17 07/21/17 07/22/17 15:51 21:01 05:34 WBC 6.3 Hgb 10.9 L 11.5 10.1 L Hct 34.5 L 36.1 32.7 L Plt Count 179 INR APTT Sodium Potassium Chloride Carbon Dioxide BUN Creatinine Glucose Calcium Magnesium Total Bilirubin AST ALT Alkaline Phosphatase TSH 07/22/17 07/22/17 07/22/17 05:34 05:34 05:34 WBC Hgb Hct Plt Count INR 1.1 APTT 27.8 Sodium 142 Potassium 3.4 L Chloride 108 H Carbon Dioxide 31 H BUN 14 Creatinine 0.73 Glucose 93 Calcium 8.3 L Magnesium 2.0 Total Bilirubin 0.6 AST 11 L ALT 8 Alkaline Phosphatase 39 TSH 6.808 H Short CBC 07/22/17 07/21/17 07/21/17 Range/Units 05:34 21:01 15:51 WBC 6.3 (4.3-11.1) K/mcL Hgb 10.1 L 11.5 10.9 L (11.5-15.4) g/dL Hct 32.7 L 36.1 34.5 L (35.3-44.9) % Plt Count 179 (140-400) K/mcL Neutrophils # 4.3 (1.6-8.9) K/mcL BMP 07/22/17 Range/Units 05:34 Sodium 142 (136-145) mEq/L Potassium 3.4 L (3.5-5.1) mEq/L Chloride 108 H (98-107) mEq/L Carbon Dioxide 31 H (23-29) mEq/L BUN 14 (8-23) mg/dL Creatinine 0.73 (0.60-1.20) mg/dL Glucose 93 (70-105) mg/dL Calcium 8.3 L (8.6-10.3) mg/dL Liver Function 07/22/17 Range/Units 05:34 Total Bilirubin 0.6 (0.3-1.0) mg/dL AST 11 L (13-39) Units/L ALT 8 (7-52) Units/L Alkaline Phosphatase 39 (34-104) Units/L Albumin 3.4 L (3.5-5.7) g/dL Impressions Abdomen/Pelvis CT 07/21/17 13:26 IMPRESSION: No findings to suggest bowel obstruction. No abdominal or pelvic fluid collection. Right renal cysts which measure up to 7.0 x 5.7 cm. Mild intrahepatic biliary dilatation centrally. Common bowel duct stent in place extending from the proximal common bowel duct into the duodenum. D/ / Radha Guillaume MD / Radha Guillaume MD Interpreting Provider: Radha Guillaume MD Active Medications Hydrocodone Bitart/Acetaminophen ([place] 5-325 Mg) 1 tab PO Q6HR PRN PRN Reason: Moderate Pain Stop: 01/20/18 15:13 Clopidogrel Bisulfate (Plavix) 75 mg PO DAILY SABRA Stop: 01/21/18 09:01 Last Admin: 07/22/17 08:04 Dose: Not Given Digoxin (Lanoxin) 0.125 mg PO DAILY SABRA Stop: 01/21/18 09:01 Last Admin: 07/22/17 08:15 Dose: 0.125 mg Ferrous Sulfate (Ferrous Sulfate) 325 mg PO QDPC SABRA Stop: 01/21/18 09:01 Last Admin: 07/22/17 08:04 Dose: Not Given Fluticasone Propionate (Flonase) 100 mcg NS DAILY PRN; Protocol PRN Reason: Allergy Symptoms Stop: 01/20/18 15:23 Furosemide (Lasix) 20 mg PO BIDDIURETIC SABRA Stop: 01/20/18 17:01 Last Admin: 07/22/17 08:04 Dose: Not Given Pantoprazole Sodium 40 mg/ (Sodium Chloride) 100 mls @ 20 mls/hr IVC .Q5H SABRA Stop: 01/20/18 15:31 Last Infusion: 07/22/17 11:15 Dose: 0 mls/hr Levothyroxine Sodium (Synthroid) 25 mcg PO 0630 SABRA Stop: 01/21/18 06:31 Last Admin: 07/22/17 06:29 Dose: Not Given Lisinopril (Zestril) 2.5 mg PO DAILY SABRA PRN Reason: Protocol Stop: 01/21/18 09:01 Last Admin: 07/22/17 08:04 Dose: Not Given Metoprolol Succinate (Toprol Xl) 100 mg PO DAILY SABRA Stop: 01/21/18 09:01 Last Admin: 07/22/17 08:15 Dose: 100 mg Naloxone HCl (Narcan) 0.4 mg IVP Q2MIN PRN PRN Reason: SEE COMMENTS Stop: 01/20/18 15:13 Pharmacy Profile Note (Patient Taking Own Medication) 0 each PO DAILY SABRA Stop: 01/21/18 09:01 Last Admin: 07/22/17 08:04 Dose: Not Given Simvastatin (Zocor) 20 mg PO HS SABRA PRN Reason: Protocol Stop: 01/20/18 21:01 Last Admin: 07/21/17 21:39 Dose: 20 mg Vitamin D (Vitamin D) 1,000 unit PO DAILY SABRA Stop: 01/21/18 09:01 Last Admin: 07/22/17 08:04 Dose: Not Given - Imaging and Cardiology Echo: report reviewed Holter: report reviewed - EKG Interpretation EKG results cardiology: other (12 hr tele AVG HR 77, A-Fib) Consult Discharge Plan - Plan Referrals: Amarilis Chi MD [Primary Care Provider] - <Christopher Pichardo - Last Filed: 07/22/17 16:03> Date of Encounter: 07/22/17 - Attending Attestation I have personally performed a face to face evaluation on this patient. I have reviewed and agree with the care plan. History and Exam by me shows: Admitted with Gi bleed, plavix and asprin could be held if needed as stents are remote. Assessment and Plan Discussion w patient/family: The assessment and plan as outlined above was discussed with the patient and/or family members who expressed understanding and agreement. All questions were answered. Thank you for involving us in the care of your patient. Please call with any questions. History of Present Illness History of present illness: Ms. Blackman is a 81 year old female All Systems Review: A 10-system review of systems was performed and is negative for pertinent findings except as documented above in the HPI. Physical Examination Vital Signs, Last 4 Hours Temp Pulse Resp BP Pulse Ox 07/22/17 15:35 98.1 F 86 15 144/76 96 Results 07/22/17 05:34 07/22/17 05:34 Lab Results 07/21/17 07/21/17 07/22/17 15:51 21:01 05:34 WBC 6.3 Hgb 10.9 L 11.5 10.1 L Hct 34.5 L 36.1 32.7 L Plt Count 179 INR APTT Sodium Potassium Chloride Carbon Dioxide BUN Creatinine Glucose Calcium Magnesium Total Bilirubin AST ALT Alkaline Phosphatase TSH 07/22/17 07/22/17 07/22/17 05:34 05:34 05:34 WBC Hgb Hct Plt Count INR 1.1 APTT 27.8 Sodium 142 Potassium 3.4 L Chloride 108 H Carbon Dioxide 31 H BUN 14 Creatinine 0.73 Glucose 93 Calcium 8.3 L Magnesium 2.0 Total Bilirubin 0.6 AST 11 L ALT 8 Alkaline Phosphatase 39 TSH 6.808 H
--- NOTE | 2017-07-22 14:26 | Internal Med Progress Note ---
Date of Encounter: 07/22/17 Time of Encounter: 13:25 - Assessment and plan (1) GI bleed Current Visit: Yes Status: Acute Assessment and plan: s/p EGD and colonoscopy today (07/22/17) Colonoscopy reported a tumor concerning for malignancy in the descending colon. 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 Pichardo for PPM placement (3) Afib Current Visit: Yes Status: Chronic Assessment and plan: rate controlled with Digoxin and BB continue plavix not on full anticoagulation due to GI bleed Qualifiers: Atrial fibrillation type: chronic Qualified Code(s): I48.2 - Chronic atrial fibrillation (4) CAD (coronary artery disease) Current Visit: Yes Status: Chronic Assessment and plan: continue Plavix, BB, statin no signs of angina present at this time Qualifiers: Coronary Disease-Associated Artery/Lesion type: [place] artery [place] vs. transplanted heart: [place] heart Associated angina: angina presence unspecified Qualified Code(s): I25.10 - Atherosclerotic heart disease of [place] coronary artery without angina pectoris (5) CHF (congestive heart failure) Current Visit: Yes Status: Chronic Assessment and plan: no clinical signs of CHF decompensation continue home meds Qualifiers: Congestive heart failure type: unspecified Congestive heart failure chronicity: unspecified Qualified Code(s): I50.9 - Heart failure, unspecified (6) HTN (hypertension) Current Visit: Yes Status: Chronic Assessment and plan: BP within acceptable range continue home meds Qualifiers: Hypertension type: essential hypertension Qualified Code(s): I10 - Essential (primary) hypertension (7) Rectal cancer Current Visit: No Status: Chronic Assessment and plan: history of rectal ca, s/p colon resection (8) DVT prophylaxis Current Visit: Yes Status: Acute Assessment and plan: SCD - Subjective Interval history: Patient seen and examined at bedside. Pt is s/p EGD and colonoscopy (07/22/17). Reports of feeling weak at this time, denies any abd pain - Constitutional Vitals: Temp Pulse Resp BP Pulse Ox 97.6 F 73 16 100/67 99 07/22/17 10:22 07/22/17 10:22 07/22/17 10:22 07/22/17 10:22 07/22/17 10:22 General appearance: Present: cooperative, A&O X 3, pleasant, no acute distress, answers questions appropriately - Head Head exam: Present: atraumatic, normocephalic - Eye Eye exam: Present: conjuntiva pink, sclera anicteric - Respiratory Respiratory exam: Present: CTAB. Absent: respiratory distress, wheezes - Cardiovascular Cardiovascular exam: Present: RRR, +S1, +S2. Absent: diastolic murmur, gallop, rubs, systolic murmur - GI/Abdominal GI/Abdominal exam: Present: normal bowel sounds, soft. Absent: tenderness ( colostomy intact) - Extremities Exam Extremities exam: Present: warm, radial pulses palpable and symmetrical. Absent : calf tenderness, pedal edema - Neurological Exam Neurological exam: Present: alert, oriented X3 - Psychiatric Psychiatric exam: Present: normal affect, normal mood Internal Medicine: Result - Labs CBC & Chem 7: 07/22/17 05:34 07/22/17 05:34 Labs: Short CBC 07/21/17 07/21/17 07/22/17 Range/Units 15:51 21:01 05:34 WBC 6.3 (4.3-11.1) K/mcL Hgb 10.9 L 11.5 10.1 L (11.5-15.4) g/dL Hct 34.5 L 36.1 32.7 L (35.3-44.9) % Plt Count 179 (140-400) K/mcL Neutrophils # 4.3 (1.6-8.9) K/mcL BMP 07/22/17 05:34 Sodium 142 Potassium 3.4 L Chloride 108 H Carbon Dioxide 31 H BUN 14 Creatinine 0.73 Glucose 93 Calcium 8.3 L Liver Function 07/22/17 Range/Units 05:34 Total Bilirubin 0.6 (0.3-1.0) mg/dL AST 11 L (13-39) Units/L ALT 8 (7-52) Units/L Alkaline Phosphatase 39 (34-104) Units/L Albumin 3.4 L (3.5-5.7) g/dL - ABG Interpretation ABG results: PT/INR, D-dimer PT 11.8 Seconds (9.4-12.1) 07/22/17 05:34 Consult Discharge Plan - Plan Referrals: Amarilis Chi MD [Primary Care Provider] -
[2017-07-22] MEDS: *HR* HYDROcodone/Acet 5/325 mg TABLET PO PRN ×2 (16:21→22:20)
[2017-07-22 19:26] LABS: Hematocrit 34.1 % (35.3-44.9); Hemoglobin 10.5 g/dL (11.5-15.4)
[2017-07-23] MEDS: Pantoprazole 40 MG in 0.9 % Sodium Chloride Mini Bag 100 ML IVC SCH ×2 (01:15→06:10)
[2017-07-23 05:46] LABS: Basophils % 0.2 %; Eosinophils # 0.1 K/mcL (0.0-0.6); Eosinophils % 1.3 %; Hematocrit 34.3 % (35.3-44.9); Hemoglobin 10.7 g/dL (11.5-15.4); Immature Granulocytes % 0.3 % (0-4); Lymphocytes # 1.1 K/mcL (0.6-4.6); Lymphocytes % 12.3 %; Mean Corpuscular HGB Conc 31.2 g/dL (31.6-35.5); Mean Corpuscular Hemoglobin 25.8 pg (28.0-33.3); Mean Corpuscular Volume 82.9 fL (83.0-100.0); Mean Platelet Volume 10.9 fL (9.4-12.4); Monocytes # 0.9 K/mcL (0.0-1.3); Monocytes % 10.3 %; Neutrophils # 6.6 K/mcL (1.6-8.9); Platelet Count 162 K/mcL (140-400); Red Blood Count 4.14 M/mcL (3.82-4.97); Red Cell Distribution Width 15.3 % (11.5-14.5); Segmented Neutrophils % 75.6 %
[2017-07-23 05:57] LABS: Alanine Aminotransferase 8 Units/L (7-52); Albumin 3.4 g/dL (3.5-5.7); Albumin/Globulin Ratio 1.8 (1.1-2.2); Alkaline Phosphatase 42 Units/L (34-104); Aspartate Amino Transferase 14 Units/L (13-39); BUN/Creatinine Ratio 17 (6-26); Bilirubin,Total 0.8 mg/dL (0.3-1.0); Blood Urea Nitrogen 11 mg/dL (8-23); Calcium 8.3 mg/dL (8.6-10.3); Carbon Dioxide 27 mEq/L (23-29); Chloride 108 mEq/L (98-107); Globulin 1.9 g/dL (2.4-3.5); Glucose 108 mg/dL (70-105); Magnesium 1.9 mg/dL (1.6-2.6); Osmolality,Calculated 290 (280-300); Phosphorous 2.4 mg/dL (2.7-4.5); Potassium 3.9 mEq/L (3.5-5.1); Sodium 140 mEq/L (136-145); Total Protein 5.3 g/dL (6.4-8.9); eGFR For African Americans > 60 (> 60); eGFR For Non-African Americans > 60 (> 60)
[2017-07-23] MEDS: Levothyroxine 25 MCG TABLET PO SCH (06:09)
[2017-07-23] MEDS: *HR* HYDROcodone/Acet 5/325 mg TABLET PO PRN ×2 (06:16→15:36)
[2017-07-23] MEDS: Metoprolol XL (24 HR) Succ 50 MG TAB.ER.24H PO SCH (08:43)
[2017-07-23] MEDS: Cholecalciferol (D-3) 1,000 UNIT TABLET PO SCH (08:43)
[2017-07-23] MEDS: Furosemide 20 MG TABLET PO SCH ×2 (08:43→17:33)
[2017-07-23] MEDS: *HR* Digoxin 0.125 MG TABLET PO SCH (08:44)
[2017-07-23] MEDS: CYANOCOBALAMIN 100 MCG PO SCH (08:46)
--- NOTE | 2017-07-23 10:11 | Electrocardiograph Report ---
[address] [place] [address] Test Date: 2017-07-21 Pat Name: Anabelle Blackman Department: 104 Room: 3A53 Gender: F Supervisor [employer]: RERE : 1935 Requested By: Ken Shipman Order Number: [id number] Reading MD: Alena Perez Measurements Intervals [place] Rate: 65 P: [place]: 0 QRS: -26 QRSD: 140 T: 4 QT: 412 QTc: 424 Interpretive Statements ATRIAL FIBRILLATION BORDERLINE LEFT AXIS DEVIATION RIGHT BUNDLE BRANCH BLOCK Electronically Signed On 07-23-2017 10:10:36 EST by Alena Perez
--- NOTE | 2017-07-23 11:43 | General Surgery Progress Note ---
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 Pt admitted for evaluation of GI bleed, while on dual antiplatelet therapy, with reported melena from her colostomy bag -POD 1 EGD and colonoscopy. Pt remains afebrile, vital signs WNL -Findings: Infiltrative non-obstructing mass approx 3 cm in length found in descending colon. Biopsy taken, awaiting pathology report -Dr. Hudson discussed findings with patient. -Pt amenable to plan, and questions answered by Dr. Hudson this morning. -Pt to follow-up within 1 week as outpatient with Dr. Hudson -Please call surgery for any questions. (2) Melena Status: Acute Plan, as above. Hgb 10.7 H/H, transfusions, per primary. Cardiology on consult. Subjective Patient reports: no new complaints Narrative: No acute events overnight. Endorsed some fatigue. Tolerating breakfast this AM. Objective Physical exam performed by Luis Hudson MD and noted as seen below: Vital Signs - Last 8 Hours Temp Pulse Resp BP Pulse Ox 07/23/17 06:53 98.8 F 71 15 101/61 94 Intake and Output 07/22/17 07/23/17 07/23/17 23:59 07:59 15:59 Intake Total 50 / 50 680 / 680 Output Total 0 / 0 250 / 250 Balance 50 / 50 680 / 680 -250 / -250 Intake: IV Fluids 50 / 50 200 / 200 Protonix 40 MG In 0.9 % Sodium 50 / 50 200 / 200 Chloride (Mini-Bag +) 100 ML @ 20 mls/hr IVC .Q5H SABRA Rx#: [id number] Oral 0 / 0 480 / 480 Output: Urine 0 / 0 250 / 250 Other: # Voids 1 1 Weight 78.154 kg Blood Glucose* 112 Patient Weight 07/23/17 23:59 Weight 78.154 kg - General physical appearance no distress - Eyes normal ocular movement - Respiratory normal expansion, normal respiratory effort - Psychiatric oriented to time, oriented to person, oriented to place, speech is normal - Labs 07/23/17 05:19 07/23/17 05:19 Diabetes panel 07/23/17 Range/Units 05:19 Sodium 140 (136-145) mEq/L Potassium 3.9 (3.5-5.1) mEq/L Chloride 108 H (98-107) mEq/L Carbon Dioxide 27 (23-29) mEq/L BUN 11 (8-23) mg/dL Creatinine 0.64 (0.60-1.20) mg/dL Glucose 108 H (70-105) mg/dL Calcium 8.3 L (8.6-10.3) mg/dL AST 14 (13-39) Units/L ALT 8 (7-52) Units/L Alkaline Phosphatase 42 (34-104) Units/L Albumin 3.4 L (3.5-5.7) g/dL Calcium panel 07/23/17 Range/Units 05:19 Calcium 8.3 L (8.6-10.3) mg/dL Phosphorus 2.4 L (2.7-4.5) mg/dL Albumin 3.4 L (3.5-5.7) g/dL Pituitary panel 07/23/17 Range/Units 05:19 Sodium 140 (136-145) mEq/L Potassium 3.9 (3.5-5.1) mEq/L Chloride 108 H (98-107) mEq/L Carbon Dioxide 27 (23-29) mEq/L BUN 11 (8-23) mg/dL Creatinine 0.64 (0.60-1.20) mg/dL Glucose 108 H (70-105) mg/dL Calcium 8.3 L (8.6-10.3) mg/dL Adrenal panel 07/23/17 Range/Units 05:19 Sodium 140 (136-145) mEq/L Potassium 3.9 (3.5-5.1) mEq/L Chloride 108 H (98-107) mEq/L Carbon Dioxide 27 (23-29) mEq/L BUN 11 (8-23) mg/dL Creatinine 0.64 (0.60-1.20) mg/dL Glucose 108 H (70-105) mg/dL Calcium 8.3 L (8.6-10.3) mg/dL Total Bilirubin 0.8 (0.3-1.0) mg/dL AST 14 (13-39) Units/L ALT 8 (7-52) Units/L Alkaline Phosphatase 42 (34-104) Units/L Albumin 3.4 L (3.5-5.7) g/dL Consult Discharge Plan - Plan Additional Instructions: Please follow up with your primary care physician within five days after your discharge from the hospital. Please follow up with surgery within one week after your discharge from the hospital to go over your biopsy results. Please continue to hold your home dose of Aspirin. Omeprazole twice a day has been added to your home medications. Ask your primary care physician/surgeon about rat exterminator continuation of this medication. Resume all other medications as prescribed by your primary care physician. Referrals: Luis Hudson MD [Partnered Physician] - 08/04/17 11:10 am () Adilia Staples CNP [Advanced Practice Nurse] - 07/31/17 2:00 pm Prescriptions: HYDROcodone/Acet 5/325 mg [[place] 5-325 mg] 1 tab PO Q6HR PRN 3 Days #10 tablet PRN Reason: moderate to severe pain Omeprazole [PriLOSEC] 40 mg PO BIDAC #30 capsule.dr <Luis Hudson - Last Filed: 07/25/17 08:37> Date of Encounter: 07/23/17 - Assessment and Plan (1) GI bleed Status: Acute Qualifiers: GI bleed type/associated pathology: unspecified gastrointestinal hemorrhage type Qualified Code(s): K92.2 - Gastrointestinal hemorrhage, unspecified Objective - Labs 07/24/17 05:49 07/24/17 05:49 - Attending Attestation I examined this patient and my medical decision-making was reviewed with the Resident Physician. I agree with the documented findings, disposition and treatment plan as described except to the extent set forth below. The patient is seen and evaluated on morning rounds with resident. She likely has a third colorectal cancer about 20-25 cm proximal to the colostomy. Biopsies have been taken. I will see her in follow-up in my office for treatment planning
--- NOTE | 2017-07-23 13:01 | Internal Med Progress Note ---
Date of Encounter: 07/23/17 Time of Encounter: 10:26 - Assessment and plan (1) GI bleed Current Visit: Yes Status: Acute Assessment and plan: s/p EGD and colonoscopy today (07/22/17) Colonoscopy reported a tumor concerning for malignancy in the descending colon. 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 Pichardo for PPM placement (3) Afib Current Visit: Yes Status: Chronic Assessment and plan: rate controlled with Digoxin and BB continue plavix not on full anticoagulation due to GI bleed Qualifiers: Atrial fibrillation type: chronic Qualified Code(s): I48.2 - Chronic atrial fibrillation (4) CAD (coronary artery disease) Current Visit: Yes Status: Chronic Assessment and plan: continue Plavix, BB, statin no signs of angina present at this time Qualifiers: Coronary Disease-Associated Artery/Lesion type: [place] artery [place] vs. transplanted heart: [place] heart Associated angina: angina presence unspecified Qualified Code(s): I25.10 - Atherosclerotic heart disease of [place] coronary artery without angina pectoris (5) CHF (congestive heart failure) Current Visit: Yes Status: Chronic Assessment and plan: no clinical signs of CHF decompensation continue home meds Qualifiers: Congestive heart failure type: unspecified Congestive heart failure chronicity: unspecified Qualified Code(s): I50.9 - Heart failure, unspecified (6) HTN (hypertension) Current Visit: Yes Status: Chronic Assessment and plan: BP within acceptable range continue home meds Qualifiers: Hypertension type: essential hypertension Qualified Code(s): I10 - Essential (primary) hypertension (7) Rectal cancer Current Visit: No Status: Chronic Assessment and plan: history of rectal ca, s/p colon resection (8) DVT prophylaxis Current Visit: Yes Status: Acute Assessment and plan: SCD - Subjective Interval history: Patient seen and examined at bedside. Pt is s/p EGD and colonoscopy (07/22/17). Reports of feeling better compared to previous day. No recurrent bleeding reported. Started full liquid diet Pt states she does not want ECF care even if PT/OT recommends it. She is able to ambulate to the bathroom and walk with assistance Will d/c protonix gtt, advance diet as tolerated, and tentative d/c in am if remains clinically stable - Constitutional Vitals: Temp Pulse Resp BP Pulse Ox 98.8 F 71 15 101/61 94 07/23/17 06:53 07/23/17 06:53 07/23/17 06:53 07/23/17 06:53 07/23/17 06:53 General appearance: Present: cooperative, A&O X 3, pleasant, no acute distress, answers questions appropriately - Head Head exam: Present: atraumatic, normocephalic - Eye Eye exam: Present: conjuntiva pink, sclera anicteric - Respiratory Respiratory exam: Present: CTAB. Absent: accessory muscle use, rales, rhonchi, wheezes - Cardiovascular Cardiovascular exam: Present: RRR, +S1, +S2. Absent: diastolic murmur, gallop, rubs, systolic murmur - GI/Abdominal GI/Abdominal exam: Present: normal bowel sounds, soft. Absent: distended, tenderness (colostomy intact, colostomy bag empty) - Extremities Exam Extremities exam: Present: warm, radial pulses palpable and symmetrical. Absent : calf tenderness - Neurological Exam Neurological exam: Present: alert, oriented X3 Internal Medicine: Result - Labs CBC & Chem 7: 07/23/17 05:19 07/23/17 05:19 Labs: Short CBC 07/22/17 07/23/17 Range/Units 19:19 05:19 WBC 8.7 (4.3-11.1) K/mcL Hgb 10.5 L 10.7 L (11.5-15.4) g/dL Hct 34.1 L 34.3 L (35.3-44.9) % Plt Count 162 (140-400) K/mcL Neutrophils # 6.6 (1.6-8.9) K/mcL BMP 07/23/17 05:19 Sodium 140 Potassium 3.9 Chloride 108 H Carbon Dioxide 27 BUN 11 Creatinine 0.64 Glucose 108 H Calcium 8.3 L Liver Function 07/23/17 Range/Units 05:19 Total Bilirubin 0.8 (0.3-1.0) mg/dL AST 14 (13-39) Units/L ALT 8 (7-52) Units/L Alkaline Phosphatase 42 (34-104) Units/L Albumin 3.4 L (3.5-5.7) g/dL - ABG Interpretation ABG results: PT/INR, D-dimer PT 11.8 Seconds (9.4-12.1) 07/22/17 05:34 Consult Discharge Plan - Plan Referrals: Luis Hudson MD [Partnered Physician] - (F/u within 1 week ) Amarilis Chi MD [Primary Care Provider] -
[2017-07-24] MEDS: Pantoprazole 40 MG in 0.9 % Sodium Chloride Mini Bag 100 ML IVC SCH ×2 (01:33→01:34)
[2017-07-24 06:04] LABS: Basophils % 0.4 %; Eosinophils # 0.1 K/mcL (0.0-0.6); Eosinophils % 1.5 %; Hematocrit 32.9 % (35.3-44.9); Hemoglobin 10.2 g/dL (11.5-15.4); Immature Granulocytes % 0.1 % (0-4); Lymphocytes % 13.3 %; Mean Corpuscular Hemoglobin 25.4 pg (28.0-33.3); Mean Corpuscular Volume 81.8 fL (83.0-100.0); Mean Platelet Volume 10.6 fL (9.4-12.4); Monocytes # 0.7 K/mcL (0.0-1.3); Monocytes % 9.6 %; Neutrophils # 5.6 K/mcL (1.6-8.9); Platelet Count 191 K/mcL (140-400); Red Blood Count 4.02 M/mcL (3.82-4.97); Red Cell Distribution Width 15.2 % (11.5-14.5); Segmented Neutrophils % 75.1 %
[2017-07-24] MEDS: Levothyroxine 25 MCG TABLET PO SCH (06:15)
[2017-07-24] MEDS: *HR* HYDROcodone/Acet 5/325 mg TABLET PO PRN (06:15)
[2017-07-24 06:46] LABS: Magnesium 1.9 mg/dL (1.6-2.6); Phosphorous 2.4 mg/dL (2.7-4.5)
[2017-07-24 06:48] LABS: Alanine Aminotransferase 7 Units/L (7-52); Albumin 3.3 g/dL (3.5-5.7); Albumin/Globulin Ratio 1.6 (1.1-2.2); Alkaline Phosphatase 49 Units/L (34-104); Aspartate Amino Transferase 11 Units/L (13-39); BUN/Creatinine Ratio 13 (6-26); Bilirubin,Total 0.6 mg/dL (0.3-1.0); Blood Urea Nitrogen 9 mg/dL (8-23); Calcium 8.6 mg/dL (8.6-10.3); Carbon Dioxide 28 mEq/L (23-29); Chloride 106 mEq/L (98-107); Globulin 2.1 g/dL (2.4-3.5); Glucose 105 mg/dL (70-105); Osmolality,Calculated 289 (280-300); Potassium 3.3 mEq/L (3.5-5.1); Sodium 140 mEq/L (136-145); Total Protein 5.4 g/dL (6.4-8.9); eGFR For African Americans > 60 (> 60); eGFR For Non-African Americans > 60 (> 60)
[2017-07-24] MEDS: Cholecalciferol (D-3) 1,000 UNIT TABLET PO SCH (08:13)
[2017-07-24] MEDS: *HR* Digoxin 0.125 MG TABLET PO SCH (08:13)
[2017-07-24] MEDS: Furosemide 20 MG TABLET PO SCH (08:13)
[2017-07-24] MEDS: Metoprolol XL (24 HR) Succ 50 MG TAB.ER.24H PO SCH (08:13)
[2017-07-24] MEDS: CYANOCOBALAMIN 100 MCG PO SCH (08:14)
[2017-07-24 11:13] VITALS: BP 116/73
--- NOTE | 2017-07-24 12:54 | General Surgery Progress Note ---
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 Pt admitted for evaluation of GI bleed, while on dual antiplatelet therapy -POD 2 EGD and colonoscopy. Pt remains afebrile, vital signs WNL -Findings: Infiltrative non-obstructing mass approx 3 cm in length found in descending colon. Biopsy taken, awaiting pathology report -Dr. Hudson discussed findings with patient and daughter today. -Pt amenable to plan, and questions answered by Dr. Hudson this morning. -Pt should follow-up within 1 week as outpatient with Dr. Hudson -Please call surgery for any questions. (2) Melena Status: Acute Plan, as above. 2/4 Hgb 10.7 . 2/5 Hgb 10.2 H/H, transfusions, per primary. Cardiology on consult. Subjective Patient reports: no new complaints Narrative: No acute events overnight. Pt is amenable to unsure of rehabilitation, says she may be amenable to a few days, but not a full week. Tolerating diet without difficulty. Endorses some gas in ostomy pouch this morning. Denies any complaints. Objective Vital Signs - Last 8 Hours Temp Pulse Resp BP Pulse Ox 07/24/17 11:12 97.7 F 80 14 116/73 98 07/24/17 07:02 98.7 F 72 14 115/68 95 Intake and Output 07/23/17 07/24/17 07/24/17 23:59 07:59 15:59 Intake Total 240 / 240 950 / 950 540 / 540 Output Total 700 / 700 200 / 200 200 / 200 Balance -460 / -460 750 / 750 340 / 340 Intake: Oral 240 / 240 950 / 950 540 / 540 Output: Urine 700 / 700 200 / 200 200 / 200 Stool 0 / 0 Other: Meal Dinner Breakfast Percent of Meal Consumed 50% 80% # Voids 1 Weight 75.614 kg Patient Weight 07/24/17 23:59 Weight 75.614 kg - General physical appearance no distress, no pain - Respiratory normal expansion, normal respiratory effort, clear to auscultation - Cardiovascular Cardiovascular exam: Present: regular rhythm (+S1, S2). Absent: tachycardia - Abdomen Abdomen: Present: bowel sounds present, soft, non tender - Labs 07/24/17 05:49 07/24/17 05:49 Diabetes panel 07/24/17 Range/Units 05:49 Sodium 140 (136-145) mEq/L Potassium 3.3 L (3.5-5.1) mEq/L Chloride 106 (98-107) mEq/L Carbon Dioxide 28 (23-29) mEq/L BUN 9 (8-23) mg/dL Creatinine 0.72 (0.60-1.20) mg/dL Glucose 105 (70-105) mg/dL Calcium 8.6 (8.6-10.3) mg/dL AST 11 L (13-39) Units/L ALT 7 (7-52) Units/L Alkaline Phosphatase 49 (34-104) Units/L Albumin 3.3 L (3.5-5.7) g/dL Calcium panel 07/24/17 07/24/17 Range/Units 05:49 05:49 Calcium 8.6 (8.6-10.3) mg/dL Phosphorus 2.4 L (2.7-4.5) mg/dL Albumin 3.3 L (3.5-5.7) g/dL Pituitary panel 07/24/17 Range/Units 05:49 Sodium 140 (136-145) mEq/L Potassium 3.3 L (3.5-5.1) mEq/L Chloride 106 (98-107) mEq/L Carbon Dioxide 28 (23-29) mEq/L BUN 9 (8-23) mg/dL Creatinine 0.72 (0.60-1.20) mg/dL Glucose 105 (70-105) mg/dL Calcium 8.6 (8.6-10.3) mg/dL Adrenal panel 07/24/17 Range/Units 05:49 Sodium 140 (136-145) mEq/L Potassium 3.3 L (3.5-5.1) mEq/L Chloride 106 (98-107) mEq/L Carbon Dioxide 28 (23-29) mEq/L BUN 9 (8-23) mg/dL Creatinine 0.72 (0.60-1.20) mg/dL Glucose 105 (70-105) mg/dL Calcium 8.6 (8.6-10.3) mg/dL Total Bilirubin 0.6 (0.3-1.0) mg/dL AST 11 L (13-39) Units/L ALT 7 (7-52) Units/L Alkaline Phosphatase 49 (34-104) Units/L Albumin 3.3 L (3.5-5.7) g/dL Consult Discharge Plan - Plan Additional Instructions: Please follow up with your primary care physician within five days after your discharge from the hospital. Please follow up with surgery within one week after your discharge from the hospital to go over your biopsy results. Please continue to hold your home dose of Aspirin. Omeprazole twice a day has been added to your home medications. Ask your primary care physician/surgeon about extermination inspector continuation of this medication. Resume all other medications as prescribed by your primary care physician. Referrals: Luis Hudson MD [Partnered Physician] - 08/04/17 11:10 am () Adilia Staples, ELEV[employer]IC [Advanced Practice Nurse] - 07/31/17 2:00 pm Prescriptions: HYDROcodone/Acet 5/325 mg [[place] 5-325 mg] 1 tab PO Q6HR PRN 3 Days #10 tablet PRN Reason: moderate to severe pain Omeprazole [PriLOSEC] 40 mg PO BIDAC #30 capsule.dr <Luis Hudson - Last Filed: 07/25/17 08:51> Date of Encounter: 07/24/17 - Assessment and Plan (1) GI bleed Status: Acute Qualifiers: GI bleed type/associated pathology: unspecified gastrointestinal hemorrhage type Qualified Code(s): K92.2 - Gastrointestinal hemorrhage, unspecified Objective - Labs 07/24/17 05:49 07/24/17 05:49 - Attending Attestation I examined this patient and my medical decision-making was reviewed with the Resident Physician. I agree with the documented findings, disposition and treatment plan as described except to the extent set forth below. The patient is seen in evaluated with the wrist in the morning rounds. I will see her as an outpatient to review final pathology from her colon biopsies. I suspect that she has a third colorectal cancer about 20-25 cm proximal to the ostomy. See her as an outpatient Luis Hudson MD FACS
--- NOTE | 2017-07-24 13:22 | Discharge Summary ---
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 transplanted heart: [place] heart Associated angina: angina presence unspecified Qualified Code(s): I25.10 - Atherosclerotic heart disease of [place] coronary artery without angina pectoris (5) CHF (congestive heart failure) Priority: Secondary Status: Chronic Qualifiers: Congestive heart failure type: unspecified Congestive heart failure chronicity: unspecified Qualified Code(s): I50.9 - Heart failure, unspecified (6) HTN (hypertension) Priority: Secondary Status: Chronic Qualifiers: Hypertension type: essential hypertension Qualified Code(s): I10 - Essential (primary) hypertension (7) Rectal cancer Priority: Secondary Status: Chronic (8) DVT prophylaxis Priority: Secondary Status: Acute - Discharge Medications Prescriptions: HYDROcodone/Acet 5/325 mg [[place] 5-325 mg] 1 tab PO Q6HR PRN 3 Days #10 tablet PRN Reason: moderate to severe pain Omeprazole [PriLOSEC] 40 mg PO BIDAC #30 capsule.dr Home Medications: Cholecalciferol (Vitamin D3) [Vitamin D3] 1,000 unit PO DAILY 02/13/15 [History] Cinnamon Bark [Cinnamon] 1,000 mg PO DAILY 02/13/15 [History] Cyanocobalamin (Vitamin B-12) [Vitamin B-12] 100 mcg PO DAILY 02/13/15 [History] Flaxseed Oil 1,000 mg PO BID 02/13/15 [History] Garlic 2,000 mg PO DAILY 02/13/15 [History] Lisinopril [Zestril] 2.5 mg PO DAILY 02/13/15 [History] Metoprolol XL (24 HR) Succ [Toprol XL] 100 mg PO DAILY 02/13/15 [History] Levothyroxine [Synthroid] 25 mcg PO QAM 06/01/15 [History] Calcium Carbonate [Calcium] 1,200 mg PO BID 03/17/16 [History] Ferrous Sulfate 140 mg PO DAILY 03/17/16 [History] Vitamin A Palmitate [Vitamin A] 10,000 unit PO DAILY 03/17/16 [History] Furosemide [Lasix] 20 mg PO BID #60 tablet 05/02/16 [Rx] Fluticasone Propionate Nasal [Flonase] 2 spr NS DAILY PRN 06/09/16 [History] Simvastatin [Zocor] 20 mg PO HS #90 tablet 06/15/16 [Rx] Guaifenesin [Mucinex] 600 mg PO BID PRN 08/30/16 [History] Clopidogrel Bisulfate [Plavix] 75 mg PO DAILY #30 tablet 12/08/16 [Rx] Digoxin [Lanoxin] 0.125 mg PO DAILY #30 tablet 12/08/16 [Rx] HYDROcodone/Acet 5/325 mg [[place] 5-325 mg] 1 tab PO Q6HR PRN 3 Days #10 tablet 07/24/17 [Rx] Omeprazole [PriLOSEC] 40 mg PO BIDAC #30 capsule. 07/24/17 [Rx] Allergies/Adverse Reactions: 3 Allergy/AdvReac Type Severity Reaction Status Date / Time diazepam [From Valium] Allergy Muscle Pain Verified 07/21/17 10:03 Date of admission: 07/21/17 15:12 Primary care physician: Amarilis Chi, Consults: 07/21/17 16:18 Consult to Cardiology [CONS] Routine Comment: Consulting Provider: Cardiology Radha Reason for Consult: Patient has extensive cardiac hx (previous DC in 2013 w/ stent x1, cardiomyopathy, CHF, CAD, HTN, and chronic Afib) and is on 81 mg daily aspirin and Plavix. No other anticoagulation. Pt. being admitted for GI bleeding in ostomy bag which began on Monday. Hgb 11.5 and Hct 36.1 on admission with drop to 10.7 and 34.7 on second blood draw. Pt. typed and screened. Surgery consult ordered and discussed. Recommendations for continuation of pts. Plavix and aspirin d/t current bleeding. Call Completed: Yes Discharging clinician: Lorie Chappell Anticipated date of discharge: 07/24/17 - Patient Status Disposition: Home, Self-Care Condition: Good Functional capacity at discharge: uses cane/walker Overall status at discharge: patient is back to baseline - Discharge Instructions Follow Up With: Luis Hudson MD [Partnered Physician] - 08/04/17 11:10 am () Amarilis Chi MD [Primary Care Provider] - Additional Instructions: Please follow up with your primary care physician within five days after your discharge from the hospital. Please follow up with surgery within one week after your discharge from the hospital to go over your biopsy results. Please continue to hold your home dose of Aspirin. Omeprazole twice a day has been added to your home medications. Ask your primary care physician/surgeon about fci continuation of this medication. Resume all other medications as prescribed by your primary care physician. - Diet and Activity Activity: increase activity as tolerated Diet: low fat, low cholesterol, low salt diet Hospital course: Ms. Blackman is a 81 year old female with PMH Of afib, CAD, CHF, colon and rectal ca s/p colostomy, hypothyroidism admitted for GI bleed. She underwent EGD and colonoscopy done by surgery. Colonoscopy reported infiltrative non obstructive mass in the descending colon concerning for malignancy, biopsies were taken. Pt was evaluated by cardiology in regards to continuation of Aspirin and Plavix. Cardiology stated that it was ok from their stand point to hold both agents, however patient wished to be continued on these agents. Risks/ benefits were discussed with the patient, and she was continued on plavix and aspirin was discontinued. At this time she is medically stable for discharge to home. She is to follow up with PCP and surgery after discharge. - Time Spent with Patient Total time spent providing and/or coordinating discharge services: Less than 30 minutes - Constitutional Vitals: Temp Pulse Resp BP Pulse Ox 97.7 F 80 14 116/73 98 07/24/17 11:12 07/24/17 11:12 07/24/17 11:12 07/24/17 11:12 07/24/17 11:12 General appearance: Present: cooperative, A&O X 3, pleasant, no acute distress, answers questions appropriately - Head Head exam: Present: atraumatic, normocephalic - Eye Eye exam: Present: conjuntiva pink, sclera anicteric - Respiratory Respiratory exam: Present: CTAB. Absent: accessory muscle use, rales, rhonchi, wheezes - Cardiovascular Cardiovascular exam: Present: RRR, +S1, +S2. Absent: diastolic murmur, gallop, rubs, systolic murmur - GI/Abdominal GI/Abdominal exam: Present: normal bowel sounds, soft, no peritoneal signs. Absent: distended, tenderness Additional comments: colostomy intact - Extremities Exam Extremities exam: Present: warm, radial pulses palpable and symmetrical. Absent : calf tenderness - Neurological Exam Neurological exam: Present: alert, oriented X3 - Psychiatric Psychiatric exam: Present: normal affect, normal mood
== END 2017-07-24 15:35 | disposition home or self-care (01) ==
LOC: EMEROO 11:37 → 3ANU 11:37 → SUATTDRO 15:12 → 3ANU 15:32
PROVIDERS: ADMIT Hospitalist; ATTEND Internal Medicine
PROC: ENDOEBX (2017-07-22 10:00)

== ENCOUNTER 2017-08-24 12:42 | Inpatient (IN) ==
[~2017-08-24 12:42] MED LIST: cefOXitin 1,000 MG, 0.9 % Sodium Chloride 1,000 ML IR ONE
[2017-08-24] MEDS ORDERED: *HR* Propofol 200 MG/20 ML VIAL IVP ONE (13:26)
[2017-08-24] MEDS ORDERED: *HR* FentaNYL (PF) 100 MCG/2 ML VIAL ONE (13:26)
[2017-08-24] MEDS ORDERED: Lidocaine -MPF 4% 5 ML AMPUL ONE (13:29)
[2017-08-24] MEDS ORDERED: cefOXitin 2,000 MG in Water for inj. (sterile) 20 ML 10 ML IVP ONE ×2 (13:32→19:53)
[2017-08-24] MEDS ORDERED: *HR* Rocuronium Bromide 50 MG/5 ML VIAL ONE (13:33)
[2017-08-24] MEDS ORDERED: *HR* Succinylcholine 200 MG/10 ML VIAL IVP ONE (13:33)
[2017-08-24] MEDS ORDERED: Lidocaine -MPF 2% 2 ML VIAL ONE (13:33)
[2017-08-24] MEDS ORDERED: Plasma-Lyte A (PH 7.4) 1,000 ML IVC SCH (13:45)
--- NOTE | 2017-08-24 14:10 | History & Physical Report ---
Date of Encounter: 08/24/17 Time of Encounter: 14:00 24 Hour HP Update - Instructions Instructions: If the History and Physical is less than 30 days old and was completed prior to A.M. admission and or procedure and has NOT been updated on calendar day of procedure please complete this update prior to performing procedure. - Update Patient reports changes in Medical Condition: No Changes in examination, assessment, or condition: No Changes in Medication: No Preop tests/diagnostics Reviewed: Yes Surgery Remains Indicated: Yes Consent for Planned Operative Procedure(s) Verified: Yes - Pre-Operative Checklist Preoperative Checklist Indicated: Yes Prophylactic Antibiotic Ordered: Yes Home Medications Include Beta Jeff: Yes Beta Jeff Taken Today (Day of Surgery): Yes Beta Jeff Taken Yesterday (Day Prior to Surgery): Yes Is VTE Prophylaxis Indicated?: Yes
--- NOTE | 2017-08-24 14:36 | Anesthesia Evaluation PreOp ---
Date of Encounter: 08/24/17 Time of Encounter: 14:33 - Past History Planned Operation: colectomy, ostomy revision Cardiac History: [place] (2012), CHF, HTN, Hyperlipidemia, Arrhythmia (a fib), Cardiac Stent (in 2012) Pulmonary History: Denies Any Significant HX SENIOR C SOFTWARE ENGINEER History: Denies Any Significant HX Other Medical History: Denies Any Significant HX Anesthesia History: No Prior Anesthetic Complications Alcohol Use: none Drug use: none Medications and Allergies Cholecalciferol (Vitamin D3) [Vitamin D3] 1,000 unit PO DAILY 02/13/15 [History] Cinnamon Bark [Cinnamon] 1,000 mg PO DAILY 02/13/15 [History] Cyanocobalamin (Vitamin B-12) [Vitamin B-12] 100 mcg PO DAILY 02/13/15 [History] Flaxseed Oil 1,000 mg PO BID 02/13/15 [History] Garlic 2,000 mg PO DAILY 02/13/15 [History] Lisinopril [Zestril] 2.5 mg PO DAILY 02/13/15 [History] Levothyroxine [Synthroid] 25 mcg PO QAM 06/01/15 [History] Calcium Carbonate [Calcium] 1,200 mg PO BID 03/17/16 [History] Vitamin A Palmitate [Vitamin A] 10,000 unit PO DAILY 03/17/16 [History] Furosemide [Lasix] 20 mg PO BID #60 tablet 05/02/16 [Rx] Simvastatin [Zocor] 20 mg PO HS #90 tablet 06/15/16 [Rx] Guaifenesin [Mucinex] 600 mg PO BID PRN 08/30/16 [History] Clopidogrel Bisulfate [Plavix] 75 mg PO DAILY #30 tablet 12/08/16 [Rx] Digoxin [Lanoxin] 0.125 mg PO DAILY #30 tablet 12/08/16 [Rx] Omeprazole [PriLOSEC] 40 mg PO BIDAC #30 capsule. 07/24/17 [Rx] Metoprolol Succinate [Toprol Xl] 100 mg PO DAILY 08/24/17 [History] 3 Allergy/AdvReac Type Severity Reaction Status Date / Time diazepam [From Valium] AdvReac Muscle Pain Verified 08/24/17 13:50 - Meds/Allergy Pre-op Review Medications Reviewed: Yes Allergies Reviewed: Yes Beta Blockers on Current Med List: Yes (toprol xl) Anesthesia Results - Labs Laboratory Tests 03/17/16 07/22/17 07/22/17 17:51 05:34 20:07 WBC Hgb Hct Plt Count Sodium Potassium Chloride Carbon Dioxide BUN Creatinine Est GFR ( Amer) Est GFR (Non-Af Amer) BUN/Creatinine Ratio Glucose POC Glucose 112 H Est Mean Plasma Glucose 100 Hemoglobin A1c 5.1 Lactic Acid 2.2 07/24/17 08/18/17 08/18/17 05:49 11:45 11:45 WBC 6.7 Hgb 11.9 Hct 39.6 Plt Count 247 Sodium 139 Potassium 3.7 Chloride 103 Carbon Dioxide 29 BUN 15 Creatinine 0.86 Est GFR ( Amer) > 60 Est GFR (Non-Af Amer) > 60 BUN/Creatinine Ratio 17 Glucose 105 POC Glucose Est Mean Plasma Glucose Hemoglobin A1c Lactic Acid - Imaging EKG: report reviewed, image reviewed (ATRIAL FIBRILLATION BORDERLINE LEFT AXIS DEVIATION RIGHT BUNDLE BRANCH BLOCK) Additional studies: 2016 Holter: Impression: 1.) Atrial fibrillation was present throughout the recording time. Average ventricular rate was 69 bpm. Heart rate range was 32-161 bpm. 2.) Occasional PVCs. 3.) Frequent short pauses were noted. The longest pause was 2.4 seconds. 4.) There was 1 diary entry. It correlated with atrial fibrillation with ventricular rate in the 70's. Anesthesia Exam Last Vital Signs Temp 98.2 F 08/24/17 13:02 Pulse 95 08/24/17 13:02 Resp 16 08/24/17 13:02 BP 133/83 08/24/17 13:02 Pulse Ox 97 08/24/17 13:02 Weight: 75 kg NPO (# of Hours): > 8 hrs - HEENT Pupil (Motor): Pupils equal, EOMI Mallampati: II Teeth: Edentulous Oral Opening: Greater than 3 - SENIOR C SOFTWARE ENGINEER LOC: Oriented - Cardiac Rhythm: Irregular - Pulmonary Breath Sounds: bilateral Clear Respiratory Effort: Symmetrical Anesthesia Assess/Plan ASA Score: 3 Modified [place] Scale for Level of Consciousness: Cooperative, oriented, and tranquil Anesthetic Plan: General Monitoring Plan: Standard Monitors Recovery Plan: PACU
[2017-08-24] MEDS ORDERED: EPHEDrine 50 MG/ML VIAL ONE (15:17)
[2017-08-24] MEDS ORDERED: *HR* Morphine 10 MG/ML VIAL ONE (15:35)
[2017-08-24] MEDS ORDERED: *HR* OxyCODONE Immed Rel 5 MG TABLET PO PRN (16:28)
[2017-08-24] MEDS ORDERED: *HR* HYDROmorphone (PF) 1 MG/ML SYRINGE IVP PRN (16:28)
[2017-08-24] MEDS ORDERED: *HR* Promethazine 25 MG/ML VIAL IVP PRN (16:28)
[2017-08-24] MEDS ORDERED: Neostigmine Methylsulfate 3 MG/3 ML SYRINGE ONE (16:54)
[2017-08-24] MEDS ORDERED: *HR* Heparin 5,000 UNIT/ML VIAL SQ SCH (18:00)
[2017-08-24] MEDS ORDERED: *HR* PHENYLEPHRINE 1,000 MCG/10 ML SYRINGE IVP ONE (18:20)
--- NOTE | 2017-08-24 18:27 | Operative Note ---
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 She has had 2 previous resections for colon cancer. The patient is taken to the operating room and placed in the supine position given adequate general endotracheal anesthesia. The abdomen is prepped and draped in sterile fashion utilizing Betadine solution and standard draping techniques. The ostomy was closed with a running 2-0 Prolene. Timeout was taken and the patient was identified. I opened midline. I immediately encountered dense adhesions I completely mobilized the colostomy down to the level of the fascia there was a small parastomal hernia. This was reduced. I then undertook a meticulous lysis of adhesions lasting 2 hours the adhesions were both radiation-induced and non- radiation-induced. The adhesions from previous multiple abdominal procedures for generalized throughout the small bowel and colon and easily divided. The patient had dense pelvic adhesions in the area of radiation the adhesions in this area were tremendously difficult to lyse. During takedown of adhesions in the pelvis I encountered 3 unavoidable enterotomies due to dense radiation- induced pelvic adhesions. Each enterotomy was individually addressed and closed in 2 layers with interrupted Vicryl and interrupted seromuscular silk in transverse fashion. The bowel lumen was maintained in all cases. Once I had complete mobilization of the small bowel and the radiation-induced adhesions in the pelvis I was able to assess the colon. The bleeding colon cancer was easily palpable and exactly longterm between the ostomy and the ileocecal valve. I saw no way to provide a cancer resection and maintain any length of colon. I decided on subtotal abdominal colectomy. I divided the terminal ileum was stapler. I divided the colon mesentery with clamps and hemostatic ligatures. The colon was passed off field as subtotal abdominal colectomy. I brought the ileostomy out through the right lower quadrant. The small bowel was attached to the fascia with 3 stitches of Vicryl. I then closed the colostomy defect with interrupted 0 Nurolon's. The midline was closed with looped 0 PDS and interrupted 2-0 Vicryl subcutaneous stitches. The ileostomy was matured with circumferential 3. stitches. Blood supply was excellent. Patient tolerated the procedure well and was transferred to recovery in stable condition
[2017-08-24] MEDS ORDERED: cefOXitin 1,000 MG, 0.9 % Sodium Chloride 1,000 ML IR ONE (19:53)
--- NOTE | 2017-08-24 19:55 | Anesthesia Evaluation Post Op ---
Date of Encounter: 08/24/17 Time of Encounter: 19:30 - Vital Signs Vital Signs: Vital Signs/O2 Sat/Glucose, Most Current Temp Pulse Resp BP Pulse Ox 08/24/17 19:30 97.0 F L 65 16 102/58 99 08/24/17 19:20 75 16 101/73 98 08/24/17 19:10 97.4 F L 70 16 100/61 99 08/24/17 19:00 68 16 95/60 93 08/24/17 18:50 71 16 103/64 98 08/24/17 18:40 97.7 F 78 16 125/79 100 - Lungs Lungs: Clear Ascult./Percussion - Airway Airway: Non-obstructed - Cardiovascular Baseline Rhythm - Mental Status Mental Status: Asleep with brisk response to light stimulation - Pain Pain Scale used: VazquezCelestine (Faces) (1) - Nausea Vomiting Nausea Vomiting: Not Present - Hydration Hydration: NPO - Discharge PostOp Status: Transfer Patient to floor Anes Supervising Prov Stmt: Pt seen/evaluated, VSS and pt has met criteria for discharge to home. - MD Toshia
[2017-08-24] MEDS: OXYCODONE Oral CONC 10 MG/0.5 ML ORAL.SYG SL PRN (22:25)
[2017-08-24] MEDS: CeFAZolin Premix DUPLEX 2,000 MG/50 ML BAG IVPB SCH (23:44)
[2017-08-24] MEDS: 0.9 % Sodium Chloride 1,000 ML IVC SCH (23:45)
[2017-08-25] MEDS: *HR* Heparin 5,000 UNIT/ML VIAL SQ SCH ×2 (05:26→18:43)
[2017-08-25 07:39] LABS: Hematocrit 47.2 % (35.3-44.9); Hemoglobin 14.2 g/dL (11.5-15.4); Lymphocytes # 0.4 K/mcL (0.6-4.6); Mean Corpuscular HGB Conc 30.1 g/dL (31.6-35.5); Mean Corpuscular Hemoglobin 25.4 pg (28.0-33.3); Mean Corpuscular Volume 84.3 fL (83.0-100.0); Mean Platelet Volume 10.8 fL (9.4-12.4); Nucleated Red Blood Cells 0.2 /100 WBC (0); Platelet Count 236 K/mcL (140-400); Red Cell Distribution Width 18.8 % (11.5-14.5)
[2017-08-25] MEDS: *HR* Digoxin 0.5 MG/2 ML AMPUL IVP SCH (08:13)
[2017-08-25] MEDS: CeFAZolin Premix DUPLEX 2,000 MG/50 ML BAG IVPB SCH (08:13)
[2017-08-25] MEDS: Pantoprazole 40 MG VIAL IVP SCH (08:13)
[2017-08-25 09:19] LABS: BUN/Creatinine Ratio 17 (6-26); Blood Urea Nitrogen 18 mg/dL (8-23); Calcium 9.4 mg/dL (8.6-10.3); Carbon Dioxide 23 mEq/L (23-29); Chloride 109 mEq/L (98-107); Glucose 201 mg/dL (70-105); Osmolality,Calculated 300 (280-300); Potassium 4.4 mEq/L (3.5-5.1); Sodium 141 mEq/L (136-145); eGFR For African Americans > 60 (> 60); eGFR For Non-African Americans 51 (> 60)
[2017-08-25] MEDS: OXYCODONE Oral CONC 10 MG/0.5 ML ORAL.SYG SL PRN ×3 (10:38→20:30)
--- NOTE | 2017-08-25 10:43 | General Surgery Progress Note ---
<Patricia Desouza - Last Filed: 08/25/17 14:39> Date of Encounter: 08/25/17 Time of Encounter: 10:30 - Assessment and Plan (1) Colon cancer Current Visit: No Status: Acute POD #1 #1 subtotal abdominal colectomy with ileostomy #2 lysis adhesions for 2 hours #3 repair of 3 enterotomies (unavoidable in the areas of radiation) with Dr. Hudson Pathology pending Maintain bowel rest while awaiting return of bowel function IV fluids- 75ml/hour Supportive care and pain control- ofirmev scheduled every 6 hours in addition to prn pain medications Out of bed to chair 3 times a day and ambulate hallways with assistance GI prophylaxis Repeat a.m. labs Incentive spirometer every 1 hour while awake Continue Mercedes catheter until postoperative pain is better controlled and for strict I&O's Qualifiers: Colon location: overlapping sites Qualified Code(s): C18.8 - Malignant neoplasm of overlapping sites of colon (2) DVT prophylaxis Current Visit: No Status: Acute Heparin 5000 units subcutaneous twice daily for DVT prophylaxis EPCDs to bilateral lower extremities for DVT prophylaxis Ambulate hallways 3 times a day with assistance Subjective Patient reports: still having pain (uncontrolled), no flatus, no bowel movement , afebrile Objective Vital Signs - Last 8 Hours Temp Pulse Resp BP Pulse Ox 08/25/17 06:31 97.8 F 97 16 120/76 94 08/25/17 04:03 98.0 F 83 15 123/80 96 Intake and Output 08/24/17 08/25/17 08/25/17 23:59 07:59 15:59 Intake Total 0 / 0 50 / 50 Output Total 170 / 170 0 / 0 150 / 150 Balance -170 / -170 50 / 50 -150 / -150 Intake: IV Fluids 50 / 50 Ancef Premix DUPLEX 2,000 mg In 50 / 50 50 ml @ 100 mls/hr IVPB Q8HR [facility] Rx#:[id number] Oral 0 / 0 0 / 0 Output: Stool 0 / 0 Estimated Blood Loss 150 / 150 Urine Amount (Catheter) 20 / 20 Catheter 0 / 0 150 / 150 Gastric Drainage 0 / 0 Other: Meal NPO BREAKFAST Weight 73.1 kg Blood Glucose* 167 Patient Weight 08/25/17 23:59 Weight 73.1 kg - General physical appearance well developed, well nourished, moderate pain - Eyes normal ocular movement - ENT normal mucosa, atraumatic, normocephalic - Neck Neck exam: trachea midline - Respiratory normal respiratory effort, clear to auscultation, other (diminished bibasilar bases) - Cardiovascular Cardiovascular exam: Present: RRR - Abdomen Abdomen: Present: soft, tender (expected post-operative tenderness) - Incision Incision: Present: clean and dry, intact - Neurologic CN 2-12 grossly intact - Psychiatric oriented to time, oriented to person, oriented to place, speech is normal, memory intact - Labs 08/25/17 06:44 08/25/17 08:54 Diabetes panel 08/25/17 Range/Units 08:54 Sodium 141 (136-145) mEq/L Potassium 4.4 (3.5-5.1) mEq/L Chloride 109 H (98-107) mEq/L Carbon Dioxide 23 (23-29) mEq/L BUN 18 (8-23) mg/dL Creatinine 1.04 (0.60-1.20) mg/dL Glucose 201 H (70-105) mg/dL Calcium 9.4 (8.6-10.3) mg/dL Calcium panel 08/25/17 Range/Units 08:54 Calcium 9.4 (8.6-10.3) mg/dL Pituitary panel 08/25/17 Range/Units 08:54 Sodium 141 (136-145) mEq/L Potassium 4.4 (3.5-5.1) mEq/L Chloride 109 H (98-107) mEq/L Carbon Dioxide 23 (23-29) mEq/L BUN 18 (8-23) mg/dL Creatinine 1.04 (0.60-1.20) mg/dL Glucose 201 H (70-105) mg/dL Calcium 9.4 (8.6-10.3) mg/dL Adrenal panel 08/25/17 Range/Units 08:54 Sodium 141 (136-145) mEq/L Potassium 4.4 (3.5-5.1) mEq/L Chloride 109 H (98-107) mEq/L Carbon Dioxide 23 (23-29) mEq/L BUN 18 (8-23) mg/dL Creatinine 1.04 (0.60-1.20) mg/dL Glucose 201 H (70-105) mg/dL Calcium 9.4 (8.6-10.3) mg/dL - VTE Documentation of Mechanical Device: Intermittent pneumatic compression device Consult Discharge Plan - Plan Referrals: Luis Hudson MD [Partnered Physician] - 09/08/17 9:30 am - Attending Attestation For this encounter, I have reviewed the [place] ATTENDANT or PA documentation, treatment plan, and medical decision making; and I have had face to face time with this patient. <Luis Hudson - Last Filed: 08/30/17 08:05> Date of Encounter: 08/25/17 Objective Vital Signs - Last 8 Hours Temp Pulse Resp BP Pulse Ox 08/30/17 07:39 99.7 F H 80 18 140/74 96 08/30/17 06:25 165/81 08/30/17 04:18 98.3 F 103 16 163/95 96 Intake and Output 08/29/17 08/30/17 08/30/17 23:59 07:59 15:59 Intake Total 1000 / 1000 310 / 310 Output Total 200 / 200 730 / 730 Balance 800 / 800 -420 / -420 Intake: IV Fluids 1000 / 1000 250 / 250 0.9 % Sodium Chloride 1,000 ML 1000 / 1000 @ 75 mls/hr IVC .[id number] [facility] Rx #:[id number] Intralipid 20% 250 ML @ 21 mls/ 250 / 250 hr IVPB DAILY@1700 [facility] Rx#: [id number] Oral 0 / 0 60 / 60 Output: Stool 200 / 200 Catheter 200 / 200 500 / 500 Gastric Drainage 30 / 30 Other: Meal NPO Percent of Meal Consumed 0% Weight 75.4 kg Blood Glucose* 126 152 Patient Weight 08/30/17 23:59 Weight 75.4 kg - Labs 08/30/17 04:00 08/30/17 04:00 Diabetes panel 08/30/17 Range/Units 04:00 Sodium 146 H (136-145) mEq/L Potassium 3.2 L (3.5-5.1) mEq/L Chloride 110 H (98-107) mEq/L Carbon Dioxide 31 H (23-29) mEq/L BUN 21 (8-23) mg/dL Creatinine 0.43 L (0.60-1.20) mg/dL Glucose 118 H (70-105) mg/dL Calcium 8.7 (8.6-10.3) mg/dL Calcium panel 08/30/17 08/30/17 Range/Units 04:00 04:00 Calcium 8.7 (8.6-10.3) mg/dL Phosphorus 2.8 (2.7-4.5) mg/dL Pituitary panel 08/30/17 Range/Units 04:00 Sodium 146 H (136-145) mEq/L Potassium 3.2 L (3.5-5.1) mEq/L Chloride 110 H (98-107) mEq/L Carbon Dioxide 31 H (23-29) mEq/L BUN 21 (8-23) mg/dL Creatinine 0.43 L (0.60-1.20) mg/dL Glucose 118 H (70-105) mg/dL Calcium 8.7 (8.6-10.3) mg/dL Adrenal panel 08/30/17 Range/Units 04:00 Sodium 146 H (136-145) mEq/L Potassium 3.2 L (3.5-5.1) mEq/L Chloride 110 H (98-107) mEq/L Carbon Dioxide 31 H (23-29) mEq/L BUN 21 (8-23) mg/dL Creatinine 0.43 L (0.60-1.20) mg/dL Glucose 118 H (70-105) mg/dL Calcium 8.7 (8.6-10.3) mg/dL - Attending Attestation The patient is seen and evaluated with the clinical nurse practitioner. She has poor pain control on postoperative day 1. We will continue to encourage activity. Continue nasogastric tube drainage until gastrointestinal function returned. Luis Hudson MD FACS
[2017-08-25] MEDS: Acetaminophen IV 1,000 MG/100 ML INFUS..BTL IVPB SCH ×3 (11:12→22:47)
[2017-08-25] MEDS: 0.9 % Sodium Chloride 1,000 ML IVC SCH ×2 (14:00→22:47)
[2017-08-25] MEDS: Ondansetron 4 MG/2 ML VIAL IVP PRN (14:00)
[2017-08-25 14:31] LABS: Monocytes # 0.7 K/mcL (0.0-1.3); Neutrophils # 17.5 K/mcL (1.6-8.9)
[2017-08-25 14:40] LABS: Platelet Estimate Normal (Normal)
[2017-08-26] MEDS: Acetaminophen IV 1,000 MG/100 ML INFUS..BTL IVPB SCH ×4 (04:01→21:25)
[2017-08-26 05:06] LABS: Basophils % 0.2 %; Eosinophils # 0.1 K/mcL (0.0-0.6); Eosinophils % 0.8 %; Hemoglobin 12.9 g/dL (11.5-15.4); Immature Granulocytes % 0.9 % (0-4); Lymphocytes # 0.5 K/mcL (0.6-4.6); Lymphocytes % 4.1 %; Mean Corpuscular HGB Conc 29.3 g/dL (31.6-35.5); Mean Corpuscular Hemoglobin 25.4 pg (28.0-33.3); Mean Corpuscular Volume 86.8 fL (83.0-100.0); Mean Platelet Volume 11.1 fL (9.4-12.4); Monocytes # 0.7 K/mcL (0.0-1.3); Monocytes % 5.4 %; Neutrophils # 11.2 K/mcL (1.6-8.9); Platelet Count 164 K/mcL (140-400); Red Blood Count 5.07 M/mcL (3.82-4.97); Red Cell Distribution Width 18.8 % (11.5-14.5); Segmented Neutrophils % 88.6 %
[2017-08-26] MEDS: *HR* Heparin 5,000 UNIT/ML VIAL SQ SCH ×2 (05:18→17:01)
[2017-08-26 06:10] LABS: BUN/Creatinine Ratio 28 (6-26); Blood Urea Nitrogen 24 mg/dL (8-23); Carbon Dioxide 20 mEq/L (23-29); Chloride 110 mEq/L (98-107); Glucose 104 mg/dL (70-105); Osmolality,Calculated 298 (280-300); Potassium 4.1 mEq/L (3.5-5.1); Sodium 142 mEq/L (136-145); eGFR For African Americans > 60 (> 60); eGFR For Non-African Americans > 60 (> 60)
[2017-08-26] MEDS: Pantoprazole 40 MG VIAL IVP SCH (08:52)
[2017-08-26] MEDS: *HR* Digoxin 0.5 MG/2 ML AMPUL IVP SCH (08:52)
[2017-08-26] MEDS: OXYCODONE Oral CONC 10 MG/0.5 ML ORAL.SYG SL PRN (09:02)
[2017-08-26] MEDS: 0.9 % Sodium Chloride 1,000 ML IVC SCH (14:14)
--- NOTE | 2017-08-26 16:42 | General Surgery Progress Note ---
Date of Encounter: 08/26/17 Time of Encounter: 09:45 - Assessment and Plan (1) Ileostomy care Current Visit: Yes Status: Acute (2) S/P colectomy Current Visit: Yes Status: Acute pod #2 RAMSEY, STC with ileostomy continue ngt, pt with bowel sounds HOB 30 prn pain control ivf hydration OOB to chair daily (pt refused today), PT/OT continue rain currently for strict I/O ok ice chips await return bowel function await pathology (3) Leukocytosis Current Visit: Yes Status: Acute likely secondary to surgery, trending down, follow Qualifiers: Leukocytosis type: unspecified Qualified Code(s): D72.829 - Elevated white blood cell count, unspecified Subjective Patient reports: still having pain, flatus, no bowel movement, afebrile Narrative: c/o pain with movement states cant get out of bad due to back issues Objective Vital Signs - Last 8 Hours Temp Pulse Resp BP Pulse Ox 08/26/17 16:04 99.0 F 103 15 134/85 94 08/26/17 10:46 99.8 F H 104 17 144/74 95 Intake and Output 08/26/17 08/26/17 08/26/17 07:59 15:59 23:59 Intake Total 100 / 100 1100 / 1100 Output Total 370 / 370 250 / 250 Balance -270 / -270 1100 / 1100 -250 / -250 Intake: IV Fluids 100 / 100 1100 / 1100 0.9 % Sodium Chloride 1,000 ML 1000 / 1000 @ 75 mls/hr IVC .[id number] [facility] Rx #:[id number] Ofirmev 1,000 mg/100 ml 1,000 100 / 100 100 / 100 mg In 100 ml @ 400 mls/hr IVPB Q6H [facility] Rx#:[id number] Oral 0 / 0 Output: Stool 0 / 0 Gastric Tube Lavage Amount 70 / 70 Right Nare 70 / 70 Catheter 300 / 300 250 / 250 Gastric Drainage 0 / 0 Other: Weight 73 kg Blood Glucose* 95 91 Patient Weight 08/26/17 23:59 Weight 73 kg - General physical appearance well developed, well nourished, no distress - Eyes PERRL, normal ocular movement - ENT normal mucosa, normocephalic - Neck Neck exam: trachea midline - Respiratory normal expansion, normal respiratory effort - Cardiovascular Cardiovascular exam: Present: RRR - Abdomen Abdomen: Present: bowel sounds present, soft, tender (appropriate post op tenderness). Absent: distended, guarding, rebound Additional Comments: ileostomy - pink, bowel sweat, edematous - Incision Incision: Present: clean and dry, intact - Integumentary no rash, no growths - Neurologic CN 2-12 grossly intact - Musculoskeletal normal posture - Psychiatric oriented to time, oriented to person, oriented to place, memory intact - Labs 08/26/17 04:40 08/26/17 04:40 Short CBC 08/26/17 Range/Units 04:40 WBC 12.6 H (4.3-11.1) K/mcL Hgb 12.9 (11.5-15.4) g/dL Hct 44.0 (35.3-44.9) % Plt Count 164 (140-400) K/mcL Neutrophils # 11.2 H (1.6-8.9) K/mcL BMP 08/26/17 Range/Units 04:40 Sodium 142 (136-145) mEq/L Potassium 4.1 (3.5-5.1) mEq/L Chloride 110 H (98-107) mEq/L Carbon Dioxide 20 L (23-29) mEq/L BUN 24 H (8-23) mg/dL Creatinine 0.87 (0.60-1.20) mg/dL Glucose 104 (70-105) mg/dL Calcium 9.0 (8.6-10.3) mg/dL Vital Signs Temp Pulse Resp BP Pulse Ox 08/26/17 16:04 99.0 F 103 15 134/85 94 08/26/17 10:46 99.8 F H 104 17 144/74 95 08/26/17 06:50 98.9 F 104 14 116/80 96 08/26/17 04:06 99.1 F 98 16 127/81 96 08/25/17 23:44 99.1 F 100 16 122/82 94 08/25/17 18:50 99.5 F 88 14 113/62 96 Intake and Output 08/26/17 08/26/17 08/26/17 07:59 15:59 23:59 Intake Total 100 / 100 1100 / 1100 Output Total 370 / 370 250 / 250 Balance -270 / -270 1100 / 1100 -250 / -250 Intake: IV Fluids 100 / 100 1100 / 1100 0.9 % Sodium Chloride 1,000 ML 1000 / 1000 @ 75 mls/hr IVC .[id number] [facility] Rx #:[id number] Ofirmev 1,000 mg/100 ml 1,000 100 / 100 100 / 100 mg In 100 ml @ 400 mls/hr IVPB Q6H [facility] Rx#:[id number] Oral 0 / 0 Output: Stool 0 / 0 Gastric Tube Lavage Amount 70 / 70 Right Nare 70 / 70 Catheter 300 / 300 250 / 250 Gastric Drainage 0 / 0 Other: Weight 73 kg Blood Glucose* 95 91 Patient Weight 08/26/17 23:59 Weight 73 kg - VTE Documentation of Mechanical Device: Intermittent pneumatic compression device Consult Discharge Plan - Plan Referrals: Luis Hudson MD [Partnered Physician] - 09/08/17 9:30 am Amarilis Chi MD [Primary Care Provider] -
[2017-08-26] MEDS: D5% in 0.45% NACL 1,000 ML IVC SCH (21:26)
[2017-08-27] MEDS: Ondansetron 4 MG/2 ML VIAL IVP PRN (01:08)
[2017-08-27] MEDS: OXYCODONE Oral CONC 10 MG/0.5 ML ORAL.SYG SL PRN ×2 (01:08→08:31)
[2017-08-27] MEDS: Acetaminophen IV 1,000 MG/100 ML INFUS..BTL IVPB SCH ×4 (03:54→23:36)
[2017-08-27] MEDS: *HR* Heparin 5,000 UNIT/ML VIAL SQ SCH ×2 (05:27→17:04)
[2017-08-27 08:27] LABS: BUN/Creatinine Ratio 30 (6-26); Blood Urea Nitrogen 18 mg/dL (8-23); Carbon Dioxide 26 mEq/L (23-29); Chloride 110 mEq/L (98-107); Glucose 135 mg/dL (70-105); Osmolality,Calculated 294 (280-300); Potassium 3.8 mEq/L (3.5-5.1); Sodium 140 mEq/L (136-145); eGFR For African Americans > 60 (> 60); eGFR For Non-African Americans > 60 (> 60)
[2017-08-27] MEDS: Pantoprazole 40 MG VIAL IVP SCH (08:30)
[2017-08-27] MEDS: *HR* Digoxin 0.5 MG/2 ML AMPUL IVP SCH (08:30)
[2017-08-27 08:39] LABS: Hemoglobin 13.3 g/dL (11.5-15.4); Mean Corpuscular HGB Conc 30.2 g/dL (31.6-35.5); Mean Corpuscular Hemoglobin 25.6 pg (28.0-33.3); Mean Corpuscular Volume 84.6 fL (83.0-100.0); Mean Platelet Volume 11.2 fL (9.4-12.4); Platelet Count 155 K/mcL (140-400)
[2017-08-27] MEDS ORDERED: D5% in 0.45% NACL 1,000 ML IVC PRN (09:16)
[2017-08-27] MEDS: 0.9 % Sodium Chloride 1,000 ML IVC SCH ×2 (09:49→23:36)
[2017-08-27] MEDS: D5% in 0.45% NACL 1,000 ML IVC SCH (09:54)
[2017-08-27 10:01] LABS: Eosinophils # 0.2 K/mcL (0.0-0.6); Lymphocytes # 0.4 K/mcL (0.6-4.6); Neutrophils # 9.3 K/mcL (1.6-8.9); Platelet Estimate Normal (Normal)
--- NOTE | 2017-08-27 11:02 | General Surgery Progress Note ---
<Jihan Stafford Mariola - Last Filed: 08/27/17 10:59> Date of Encounter: 08/27/17 Time of Encounter: 10:59 - Assessment and Plan (1) Colon cancer Current Visit: No Status: Acute POD #1 #3 subtotal abdominal colectomy with ileostomy #2 lysis adhesions for 2 hours #3 repair of 3 enterotomies (unavoidable in the areas of radiation) with Dr. Hudson -Pathology pending. -IVF- D5 1/2NS PRN hypoglycemia, NS maintenance at 75 mls/hr -Patient with mild nausea, improved pain, positive bowel sounds, no flatus, and minimal ostomy output. -Continue NG tube. -Rain for strict I/O -OOBTC as tolerated (patient refused yesterday), PT/OT following -IS -Supportive care, pain control, GI prophylaxis -We will continue to monitor for return of bowel function. Qualifiers: Colon location: overlapping sites Qualified Code(s): C18.8 - Malignant neoplasm of overlapping sites of colon (2) Ileostomy care Current Visit: Yes Status: Acute (3) S/P colectomy Current Visit: Yes Status: Acute (4) Leukocytosis Current Visit: Yes Status: Acute WBC WNL, trending down. Qualifiers: Leukocytosis type: unspecified Qualified Code(s): D72.829 - Elevated white blood cell count, unspecified (5) DVT prophylaxis Current Visit: No Status: Acute Heparin 5000 units subcutaneous twice daily -EPCDs -encourage ambulation Subjective Patient reports: no new complaints, feels better, pain is less, voiding w/o difficulty (rain catheter in place), no flatus (positive bowel sounds), nausea Objective Vital Signs - Last 8 Hours Temp Pulse Resp BP Pulse Ox 08/27/17 08:44 94 08/27/17 07:33 97.9 F 98 17 128/77 94 08/27/17 04:33 98.3 F 66 14 123/77 94 Intake and Output 08/26/17 08/27/17 08/27/17 22:59 07:59 15:59 Intake Total 1800 / 1800 Output Total Balance 1800 / 1800 Intake: IV Fluids 1800 / 1800 D5% And 0.45% Nacl 1000 Ml Bag 700 / 700 1,000 ML @ 75 mls/hr IVC . [id number] [facility] Rx#:[id number] Ofirmev 1,000 mg/100 ml 1,000 100 / 100 mg In 100 ml @ 400 mls/hr IVPB Q6H [facility] Rx#:[id number] Oral Output: Stool Catheter Gastric Drainage Other: Weight Blood Glucose* Patient Weight 08/28/17 00:59 Weight 73 kg - General physical appearance well developed, no distress, moderate pain - Eyes normal ocular movement - ENT normocephalic, CN 2-12 grossly intact - Neck Neck exam: trachea midline - Respiratory normal expansion, normal respiratory effort, clear to auscultation - Cardiovascular Cardiovascular exam: Present: RRR, no murmurs/rubs/gallops - Abdomen Abdomen: Present: bowel sounds present, soft. Absent: guarding, rebound, rigid Abdominal Tenderness: diffusely Hernia: none Additional Comments: ostomy with minimal stool output. Ostomy site pink and moist. - Incision Incision: Present: clean and dry, intact - Integumentary no rash, no growths - Neurologic CN 2-12 grossly intact, normal coordination - Musculoskeletal normal posture - Psychiatric oriented to time, oriented to person, oriented to place, speech is normal, memory intact - Labs 08/27/17 07:21 08/27/17 07:21 Diabetes panel 08/27/17 Range/Units 07:21 Sodium 140 (136-145) mEq/L Potassium 3.8 (3.5-5.1) mEq/L Chloride 110 H (98-107) mEq/L Carbon Dioxide 26 (23-29) mEq/L BUN 18 (8-23) mg/dL Creatinine 0.60 (0.60-1.20) mg/dL Glucose 135 H (70-105) mg/dL Calcium 9.0 (8.6-10.3) mg/dL Calcium panel 08/27/17 Range/Units 07:21 Calcium 9.0 (8.6-10.3) mg/dL Pituitary panel 08/27/17 Range/Units 07:21 Sodium 140 (136-145) mEq/L Potassium 3.8 (3.5-5.1) mEq/L Chloride 110 H (98-107) mEq/L Carbon Dioxide 26 (23-29) mEq/L BUN 18 (8-23) mg/dL Creatinine 0.60 (0.60-1.20) mg/dL Glucose 135 H (70-105) mg/dL Calcium 9.0 (8.6-10.3) mg/dL Adrenal panel 08/27/17 Range/Units 07:21 Sodium 140 (136-145) mEq/L Potassium 3.8 (3.5-5.1) mEq/L Chloride 110 H (98-107) mEq/L Carbon Dioxide 26 (23-29) mEq/L BUN 18 (8-23) mg/dL Creatinine 0.60 (0.60-1.20) mg/dL Glucose 135 H (70-105) mg/dL Calcium 9.0 (8.6-10.3) mg/dL - VTE Documentation of Mechanical Device: Intermittent pneumatic compression device Consult Discharge Plan - Plan Referrals: Luis Hudson MD [Partnered Physician] - 09/08/17 9:30 am Amarilis Chi MD [Primary Care Provider] - <Paula Okeefe - Last Filed: 08/27/17 13:46> Date of Encounter: 08/27/17 - Assessment and Plan (1) Ileostomy care Current Visit: Yes Status: Acute (2) S/P colectomy Current Visit: Yes Status: Acute no bowel function yet, await continue ngt to LIWS prn pain control despite conversation with patient she still refuses to get out of bed, PT/OT - encourage OOB gi/dvt prophylaxis IS/ pulmonary toilet (3) Leukocytosis Current Visit: Yes Status: Resolved wbc wnl today Qualifiers: Leukocytosis type: unspecified Qualified Code(s): D72.829 - Elevated white blood cell count, unspecified Subjective Patient reports: feels better, still having pain, pain is less, voiding w/o difficulty, no flatus, no bowel movement, nausea Objective Vital Signs - Last 8 Hours Temp Pulse Resp BP Pulse Ox 08/27/17 11:55 98.6 F 103 18 114/74 93 08/27/17 08:44 94 08/27/17 07:33 97.9 F 98 17 128/77 94 Intake and Output 08/26/17 08/27/17 08/27/17 22:59 07:59 15:59 Intake Total 1800 / 1800 Output Total Balance 1800 / 1800 Intake: IV Fluids 1800 / 1800 D5% And 0.45% Nacl 1000 Ml Bag 700 / 700 1,000 ML @ 75 mls/hr IVC . [id number] [facility] Rx#:[id number] Ofirmev 1,000 mg/100 ml 1,000 100 / 100 mg In 100 ml @ 400 mls/hr IVPB Q6H [facility] Rx#:[id number] Oral Output: Stool Catheter Gastric Drainage Other: Weight Blood Glucose* 112 Patient Weight 08/28/17 00:59 Weight 73 kg - General physical appearance well developed, well nourished, no distress - Eyes PERRL, normal ocular movement - ENT normal mucosa, normocephalic - Neck Neck exam: trachea midline - Respiratory normal expansion, clear to auscultation - Cardiovascular Cardiovascular exam: Present: RRR, no murmurs/rubs/gallops - Abdomen Abdomen: Present: bowel sounds present, soft, tender (expected post op tenderness). Absent: guarding, rebound - Incision Incision: Present: clean and dry, intact - Integumentary no rash, no growths - Neurologic CN 2-12 grossly intact, normal coordination - Musculoskeletal normal posture - Psychiatric oriented to time, oriented to person, oriented to place, speech is normal, memory intact - Labs 08/27/17 07:21 08/27/17 07:21 Diabetes panel 08/27/17 Range/Units 07:21 Sodium 140 (136-145) mEq/L Potassium 3.8 (3.5-5.1) mEq/L Chloride 110 H (98-107) mEq/L Carbon Dioxide 26 (23-29) mEq/L BUN 18 (8-23) mg/dL Creatinine 0.60 (0.60-1.20) mg/dL Glucose 135 H (70-105) mg/dL Calcium 9.0 (8.6-10.3) mg/dL Calcium panel 08/27/17 Range/Units 07:21 Calcium 9.0 (8.6-10.3) mg/dL Pituitary panel 08/27/17 Range/Units 07:21 Sodium 140 (136-145) mEq/L Potassium 3.8 (3.5-5.1) mEq/L Chloride 110 H (98-107) mEq/L Carbon Dioxide 26 (23-29) mEq/L BUN 18 (8-23) mg/dL Creatinine 0.60 (0.60-1.20) mg/dL Glucose 135 H (70-105) mg/dL Calcium 9.0 (8.6-10.3) mg/dL Adrenal panel 08/27/17 Range/Units 07:21 Sodium 140 (136-145) mEq/L Potassium 3.8 (3.5-5.1) mEq/L Chloride 110 H (98-107) mEq/L Carbon Dioxide 26 (23-29) mEq/L BUN 18 (8-23) mg/dL Creatinine 0.60 (0.60-1.20) mg/dL Glucose 135 H (70-105) mg/dL Calcium 9.0 (8.6-10.3) mg/dL - Attending Attestation I examined this patient and my medical decision-making was reviewed with the Resident Physician. I agree with the documented findings, disposition and treatment plan as described except to the extent set forth below.
[2017-08-27] MEDS: *HR* Metoprolol 5 MG/5 ML VIAL IVP PRN (20:34)
[2017-08-28 05:22] LABS: Basophils % 0.4 %; Eosinophils % 0.3 %; Hematocrit 42.1 % (35.3-44.9); Hemoglobin 12.2 g/dL (11.5-15.4); Immature Granulocytes % 0.3 % (0-4); Lymphocytes # 0.6 K/mcL (0.6-4.6); Lymphocytes % 7.7 %; Mean Corpuscular Hemoglobin 25.2 pg (28.0-33.3); Mean Corpuscular Volume 86.8 fL (83.0-100.0); Mean Platelet Volume 10.4 fL (9.4-12.4); Monocytes # 0.6 K/mcL (0.0-1.3); Monocytes % 7.8 %; Neutrophils # 6.7 K/mcL (1.6-8.9); Platelet Count 179 K/mcL (140-400); Red Blood Count 4.85 M/mcL (3.82-4.97); Red Cell Distribution Width 18.3 % (11.5-14.5); Segmented Neutrophils % 83.5 %
[2017-08-28 06:22] LABS: BUN/Creatinine Ratio 39 (6-26); Blood Urea Nitrogen 24 mg/dL (8-23); Calcium 8.9 mg/dL (8.6-10.3); Carbon Dioxide 24 mEq/L (23-29); Chloride 111 mEq/L (98-107); Glucose 89 mg/dL (70-105); Osmolality,Calculated 300 (280-300); Potassium 3.6 mEq/L (3.5-5.1); Sodium 143 mEq/L (136-145); eGFR For African Americans > 60 (> 60); eGFR For Non-African Americans > 60 (> 60)
[2017-08-28 06:23] LABS: Platelet Estimate Normal (Normal)
[2017-08-28] MEDS: Acetaminophen IV 1,000 MG/100 ML INFUS..BTL IVPB SCH ×2 (06:50→10:42)
[2017-08-28] MEDS: *HR* Heparin 5,000 UNIT/ML VIAL SQ SCH ×2 (06:50→17:24)
[2017-08-28] MEDS ORDERED: Lidocaine -MPF 1% 5 ML AMPUL INFILT ONE (08:10)
--- NOTE | 2017-08-28 08:39 | General Surgery Progress Note ---
<Jael Zhang-Kay - Last Filed: 08/28/17 09:05> Date of Encounter: 08/28/17 Time of Encounter: 07:30 - Assessment and Plan (1) S/P colectomy Current Visit: Yes Status: Acute Patient is POD#4. 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 Bowel sounds present. -Pathology pending. -IVF- D5 1/2NS PRN hypoglycemia. -PICC line ordered. Consult to nanny caregiver for TPN because of protein malnutrition. May titrate IVF to off when TPN goal is met. -Patient with mild nausea, improved pain, positive bowel sounds, and minimal ostomy output. Patient admits she was able to get out of the bed to the chair yesterday. -Continue NG tube. -Mercedes for strict I/O -OOBTC as tolerated. Goal is 3 times per day. PT/OT following -IS -Supportive care, pain control, GI prophylaxis -We will continue to monitor for return of bowel function. (2) Ileostomy care Current Visit: Yes Status: Acute (3) Leukocytosis Current Visit: Yes Status: Resolved Leukocytosis most likely secondary to surgery. White blood count within normal limits today and continues to trend down. Qualifiers: Leukocytosis type: unspecified Qualified Code(s): D72.829 - Elevated white blood cell count, unspecified Subjective Patient reports: no new complaints, flatus Objective Vital Signs - Last 8 Hours Temp Pulse Resp BP Pulse Ox 08/28/17 06:36 98.9 F 120 16 121/79 93 08/28/17 04:48 99.2 F 106 18 128/78 94 Intake and Output 08/27/17 08/28/17 08/28/17 23:59 07:59 15:59 Intake Total 1100 / 1100 100 / 100 Output Total 0 / 0 200 / 200 Balance 1100 / 1100 -100 / -100 Intake: IV Fluids 1100 / 1100 100 / 100 0.9 % Sodium Chloride 1,000 ML 1000 / 1000 @ 75 mls/hr IVC .[id number] [facility] Rx #:[id number] Ofirmev 1,000 mg/100 ml 1,000 100 / 100 100 / 100 mg In 100 ml @ 400 mls/hr IVPB Q6H [facility] Rx#:[id number] Oral 0 / 0 0 / 0 Output: Stool 0 / 0 Catheter 0 / 0 200 / 200 Other: Weight 74.2 kg Blood Glucose* 85 72 Patient Weight 08/28/17 23:59 Weight 74.2 kg - General physical appearance well developed, well nourished, no distress - Eyes PERRL, normal ocular movement - Respiratory normal expansion, normal respiratory effort, clear to percussion, clear to auscultation - Cardiovascular Cardiovascular exam: Present: tachycardia, no murmurs/rubs/gallops - Abdomen Abdomen: Present: bowel sounds present, soft, tender (appropiate post op tenderness). Absent: guarding, rebound, rigid Hernia: none Additional Comments: ileostomy - pink, bowel sweat present, moist. Minimal stool output. - Incision Incision: Present: clean and dry, intact - Integumentary no rash, no growths - Neurologic CN 2-12 grossly intact - Musculoskeletal normal posture - Psychiatric oriented to time, oriented to person, oriented to place, speech is normal - Labs 08/28/17 05:10 08/28/17 05:44 Diabetes panel 08/28/17 Range/Units 05:44 Sodium 143 (136-145) mEq/L Potassium 3.6 (3.5-5.1) mEq/L Chloride 111 H (98-107) mEq/L Carbon Dioxide 24 (23-29) mEq/L BUN 24 H (8-23) mg/dL Creatinine 0.62 (0.60-1.20) mg/dL Glucose 89 (70-105) mg/dL Calcium 8.9 (8.6-10.3) mg/dL Calcium panel 08/28/17 Range/Units 05:44 Calcium 8.9 (8.6-10.3) mg/dL Pituitary panel 08/28/17 Range/Units 05:44 Sodium 143 (136-145) mEq/L Potassium 3.6 (3.5-5.1) mEq/L Chloride 111 H (98-107) mEq/L Carbon Dioxide 24 (23-29) mEq/L BUN 24 H (8-23) mg/dL Creatinine 0.62 (0.60-1.20) mg/dL Glucose 89 (70-105) mg/dL Calcium 8.9 (8.6-10.3) mg/dL Adrenal panel 08/28/17 Range/Units 05:44 Sodium 143 (136-145) mEq/L Potassium 3.6 (3.5-5.1) mEq/L Chloride 111 H (98-107) mEq/L Carbon Dioxide 24 (23-29) mEq/L BUN 24 H (8-23) mg/dL Creatinine 0.62 (0.60-1.20) mg/dL Glucose 89 (70-105) mg/dL Calcium 8.9 (8.6-10.3) mg/dL - VTE Documentation of Mechanical Device: Intermittent pneumatic compression device Consult Discharge Plan - Plan Referrals: Luis Hudson MD [Partnered Physician] - 09/08/17 9:30 am <Luis Hudson - Last Filed: 08/30/17 08:06> Date of Encounter: 08/28/17 Objective Vital Signs - Last 8 Hours Temp Pulse Resp BP Pulse Ox 08/30/17 07:39 99.7 F H 80 18 140/74 96 08/30/17 06:25 165/81 08/30/17 04:18 98.3 F 103 16 163/95 96 Intake and Output 08/29/17 08/30/17 08/30/17 23:59 07:59 15:59 Intake Total 1000 / 1000 310 / 310 Output Total 200 / 200 730 / 730 Balance 800 / 800 -420 / -420 Intake: IV Fluids 1000 / 1000 250 / 250 0.9 % Sodium Chloride 1,000 ML 1000 / 1000 @ 75 mls/hr IVC .[id number] [facility] Rx #:[id number] Intralipid 20% 250 ML @ 21 mls/ 250 / 250 hr IVPB DAILY@1700 [facility] Rx#: [id number] Oral 0 / 0 60 / 60 Output: Stool 200 / 200 Catheter 200 / 200 500 / 500 Gastric Drainage 30 / 30 Other: Meal NPO Percent of Meal Consumed 0% Weight 75.4 kg Blood Glucose* 126 152 Patient Weight 08/30/17 23:59 Weight 75.4 kg - Labs 08/30/17 04:00 08/30/17 04:00 Diabetes panel 08/30/17 Range/Units 04:00 Sodium 146 H (136-145) mEq/L Potassium 3.2 L (3.5-5.1) mEq/L Chloride 110 H (98-107) mEq/L Carbon Dioxide 31 H (23-29) mEq/L BUN 21 (8-23) mg/dL Creatinine 0.43 L (0.60-1.20) mg/dL Glucose 118 H (70-105) mg/dL Calcium 8.7 (8.6-10.3) mg/dL Calcium panel 08/30/17 08/30/17 Range/Units 04:00 04:00 Calcium 8.7 (8.6-10.3) mg/dL Phosphorus 2.8 (2.7-4.5) mg/dL Pituitary panel 08/30/17 Range/Units 04:00 Sodium 146 H (136-145) mEq/L Potassium 3.2 L (3.5-5.1) mEq/L Chloride 110 H (98-107) mEq/L Carbon Dioxide 31 H (23-29) mEq/L BUN 21 (8-23) mg/dL Creatinine 0.43 L (0.60-1.20) mg/dL Glucose 118 H (70-105) mg/dL Calcium 8.7 (8.6-10.3) mg/dL Adrenal panel 08/30/17 Range/Units 04:00 Sodium 146 H (136-145) mEq/L Potassium 3.2 L (3.5-5.1) mEq/L Chloride 110 H (98-107) mEq/L Carbon Dioxide 31 H (23-29) mEq/L BUN 21 (8-23) mg/dL Creatinine 0.43 L (0.60-1.20) mg/dL Glucose 118 H (70-105) mg/dL Calcium 8.7 (8.6-10.3) mg/dL - Attending Attestation I examined this patient and my medical decision-making was reviewed with the Resident Physician. I agree with the documented findings, disposition and treatment plan as described except to the extent set forth below. The patient is seen and evaluated on morning rounds with the resident. Care plan as discussed with the clinical nurse practitioner. The patient has made great progress over the weekend. Her nasogastric tube drainage is falling off. She is able to get up to the chair now. Pathology pending. Continue supportive care. Please PICC line and start TPN today Luis Hudson MD FACS
[2017-08-28] MEDS: *HR* Digoxin 0.5 MG/2 ML AMPUL IVP SCH (09:21)
[2017-08-28] MEDS: Pantoprazole 40 MG VIAL IVP SCH (09:22)
[2017-08-28] MEDS: 0.9 % Sodium Chloride 1,000 ML IVC SCH (10:42)
[2017-08-28] MEDS ORDERED: D10% in Water 500 ML IVC PRN (11:59)
[2017-08-28] MEDS ORDERED: Clinimix E 5%-15% SOLUTION 2,000 ML with MVI, adult with vitamin K 10 ML IVC SCH (17:00)
[2017-08-28] MEDS: OXYCODONE Oral CONC 10 MG/0.5 ML ORAL.SYG SL PRN (20:00)
[2017-08-29] MEDS: 0.9 % Sodium Chloride 1,000 ML IVC SCH ×2 (01:09→19:34)
[2017-08-29] MEDS: OXYCODONE Oral CONC 10 MG/0.5 ML ORAL.SYG SL PRN ×2 (04:15→23:52)
[2017-08-29 04:33] LABS: BUN/Creatinine Ratio 46 (6-26); Blood Urea Nitrogen 24 mg/dL (8-23); Calcium 8.8 mg/dL (8.6-10.3); Carbon Dioxide 27 mEq/L (23-29); Chloride 113 mEq/L (98-107); Glucose 133 mg/dL (70-105); Osmolality,Calculated 306 (280-300); Potassium 3.2 mEq/L (3.5-5.1); Sodium 145 mEq/L (136-145); eGFR For African Americans > 60 (> 60); eGFR For Non-African Americans > 60 (> 60)
[2017-08-29 04:41] LABS: Basophils % 0.2 %; Eosinophils # 0.2 K/mcL (0.0-0.6); Eosinophils % 2.6 %; Hematocrit 36.3 % (35.3-44.9); Immature Granulocytes % 0.3 % (0-4); Lymphocytes # 0.6 K/mcL (0.6-4.6); Lymphocytes % 10.7 %; Mean Corpuscular HGB Conc 30.3 g/dL (31.6-35.5); Mean Corpuscular Hemoglobin 25.5 pg (28.0-33.3); Mean Corpuscular Volume 84.2 fL (83.0-100.0); Mean Platelet Volume 10.7 fL (9.4-12.4); Monocytes # 0.3 K/mcL (0.0-1.3); Monocytes % 5.1 %; Neutrophils # 4.8 K/mcL (1.6-8.9); Phosphorous 1.7 mg/dL (2.7-4.5); Platelet Count 186 K/mcL (140-400); Red Blood Count 4.31 M/mcL (3.82-4.97); Red Cell Distribution Width 17.8 % (11.5-14.5); Segmented Neutrophils % 81.1 %
[2017-08-29] MEDS: *HR* Heparin 5,000 UNIT/ML VIAL SQ SCH ×2 (06:16→17:11)
--- NOTE | 2017-08-29 07:16 | General Surgery Progress Note ---
<Jael Zhang-Kay - Last Filed: 08/29/17 08:12> Date of Encounter: 08/29/17 Time of Encounter: 06:45 - Assessment and Plan (1) S/P colectomy Current Visit: Yes Status: Acute Patient is POD#5. 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 Bowel sounds present. -Continue NG tube. Will detach the NG tube from the wall and attach it to Mercedes. If contents are less than 50cc in 6 hours, will remove the NG tube. Stool present in osteomy. -Pathology pending. -IVF- D5 1/2NS PRN hypoglycemia. -PICC line placed in the left mid to lower svc per nurse note. MAy titrate IVF to off when TPN goal is met. -Patient denies nausea and admits improved pain, positive bowel sounds, and moderate ostomy output. Patient was evaluated by PT/OT yesterday. -Mercedes for strict I/O -OOBTC as tolerated. Goal is 3 times per day. PT/OT following -IS -Supportive care, pain control, GI prophylaxis -We will continue to monitor. (2) Ileostomy care Current Visit: Yes Status: Acute (3) Leukocytosis Current Visit: Yes Status: Resolved Resolved. Leukocytosis most likely secondary to surgery. White blood count within normal limits today and continues to trend down. Qualifiers: Leukocytosis type: unspecified Qualified Code(s): D72.829 - Elevated white blood cell count, unspecified Subjective Patient reports: no new complaints, still having pain, pain is less, afebrile Narrative: The patient was seen and evaluated at bedside this morning. Patient is alert, afebrile, and appears in no acute distress. Patient admits the pain is less today but her abdomen is cubing machine tender to palpation. The patient admits stool in her ostomy without any blood. Patient denies any fever, headaches, chest pain, shortness of breath, difficulty breathing, blood in stool, difficulty urinating, blood in her urine, numbness and tingling, and any weaknesses. Patient has no other concerns at this time. Objective Vital Signs - Last 8 Hours Temp Pulse Resp BP Pulse Ox 08/29/17 04:30 98.7 F 99 16 141/89 94 Intake and Output 08/28/17 08/28/17 08/29/17 15:59 23:59 07:59 Intake Total 100 / 100 60 / 60 1060 / 1060 Output Total 850 / 850 500 / 500 350 / 350 Balance -750 / -750 -440 / -440 710 / 710 Intake: IV Fluids 100 / 100 1000 / 1000 0.9 % Sodium Chloride 1,000 ML 1000 / 1000 @ 75 mls/hr IVC .[id number] [facility] Rx #:[id number] Ofirmev 1,000 mg/100 ml 1,000 100 / 100 mg In 100 ml @ 400 mls/hr IVPB Q6H [facility] Rx#:[id number] Oral 0 / 0 60 / 60 60 / 60 Output: Stool 0 / 0 0 / 0 Catheter 300 / 300 200 / 200 350 / 350 Gastric Drainage 550 / 550 300 / 300 0 / 0 Other: Meal NPO Percent of Meal Consumed 0% Blood Glucose* 76 129 142 - General physical appearance well developed, well nourished, no distress - Eyes PERRL, normal ocular movement - ENT normal mucosa - Neck Neck exam: trachea midline - Respiratory normal expansion, normal respiratory effort, clear to percussion, clear to auscultation - Cardiovascular Cardiovascular exam: Present: RRR, no murmurs/rubs/gallops. Absent: tachycardia - Abdomen Abdomen: Present: bowel sounds present, soft, tender (appropiate post op tenderness near her surgical incisions.). Absent: guarding, rebound, rigid Additional Comments: ileostomy - pink, bowel sweat present, moist. Moderate stool output. No blood noted in stool - Incision Incision: Present: clean and dry, intact. Absent: draining, purulent - Integumentary no rash - Neurologic CN 2-12 grossly intact - Psychiatric oriented to time, oriented to person, oriented to place - Labs 08/29/17 04:00 08/29/17 04:00 Diabetes panel 08/28/17 08/29/17 08/29/17 Range/Units 12:10 04:00 04:00 Sodium 145 (136-145) mEq/L Potassium 3.2 L (3.5-5.1) mEq/L Chloride 113 H (98-107) mEq/L Carbon Dioxide 27 (23-29) mEq/L BUN 24 H (8-23) mg/dL Creatinine 0.52 L (0.60-1.20) mg/dL Glucose 133 H (70-105) mg/dL Calcium 8.8 (8.6-10.3) mg/dL Albumin 2.4 L (3.5-5.7) g/dL Triglycerides 156 H (< 150) mg/dL Calcium panel 08/28/17 08/29/17 08/29/17 Range/Units 12:10 04:00 04:00 Calcium 8.8 (8.6-10.3) mg/dL Phosphorus 1.7 L (2.7-4.5) mg/dL Albumin 2.4 L (3.5-5.7) g/dL Pituitary panel 08/29/17 Range/Units 04:00 Sodium 145 (136-145) mEq/L Potassium 3.2 L (3.5-5.1) mEq/L Chloride 113 H (98-107) mEq/L Carbon Dioxide 27 (23-29) mEq/L BUN 24 H (8-23) mg/dL Creatinine 0.52 L (0.60-1.20) mg/dL Glucose 133 H (70-105) mg/dL Calcium 8.8 (8.6-10.3) mg/dL Adrenal panel 08/28/17 08/29/17 Range/Units 12:10 04:00 Sodium 145 (136-145) mEq/L Potassium 3.2 L (3.5-5.1) mEq/L Chloride 113 H (98-107) mEq/L Carbon Dioxide 27 (23-29) mEq/L BUN 24 H (8-23) mg/dL Creatinine 0.52 L (0.60-1.20) mg/dL Glucose 133 H (70-105) mg/dL Calcium 8.8 (8.6-10.3) mg/dL Albumin 2.4 L (3.5-5.7) g/dL - VTE Documentation of Mechanical Device: Intermittent pneumatic compression device Consult Discharge Plan - Plan Referrals: Luis Hudson MD [Partnered Physician] - 09/08/17 9:30 am <Luis Hudson - Last Filed: 08/30/17 08:08> Date of Encounter: 08/29/17 Objective Vital Signs - Last 8 Hours Temp Pulse Resp BP Pulse Ox 08/30/17 07:39 99.7 F H 80 18 140/74 96 03/14/18 06:25 165/81 08/30/17 04:18 98.3 F 103 16 163/95 96 Intake and Output 08/29/17 08/30/17 08/30/17 23:59 07:59 15:59 Intake Total 1000 / 1000 310 / 310 Output Total 200 / 200 730 / 730 Balance 800 / 800 -420 / -420 Intake: IV Fluids 1000 / 1000 250 / 250 0.9 % Sodium Chloride 1,000 ML 1000 / 1000 @ 75 mls/hr IVC .[id number] [facility] Rx #:[id number] Intralipid 20% 250 ML @ 21 mls/ 250 / 250 hr IVPB DAILY@1700 [facility] Rx#: [id number] Oral 0 / 0 60 / 60 Output: Stool 200 / 200 Catheter 200 / 200 500 / 500 Gastric Drainage 30 Other: Meal NPO Percent of Meal Consumed 0% Weight 75.4 kg Blood Glucose* 126 152 Patient Weight 08/30/17 23:59 Weight 75.4 kg - Labs 08/30/17 04:00 08/30/17 04:00 Diabetes panel 08/30/17 Range/Units 04:00 Sodium 146 H (136-145) mEq/L Potassium 3.2 L (3.5-5.1) mEq/L Chloride 110 H (98-107) mEq/L Carbon Dioxide 31 H (23-29) mEq/L BUN 21 (8-23) mg/dL Creatinine 0.43 L (0.60-1.20) mg/dL Glucose 118 H (70-105) mg/dL Calcium 8.7 (8.6-10.3) mg/dL Calcium panel 08/30/17 08/30/17 Range/Units 04:00 04:00 Calcium 8.7 (8.6-10.3) mg/dL Phosphorus 2.8 (2.7-4.5) mg/dL Pituitary panel 08/30/17 Range/Units 04:00 Sodium 146 H (136-145) mEq/L Potassium 3.2 L (3.5-5.1) mEq/L Chloride 110 H (98-107) mEq/L Carbon Dioxide 31 H (23-29) mEq/L BUN 21 (8-23) mg/dL Creatinine 0.43 L (0.60-1.20) mg/dL Glucose 118 H (70-105) mg/dL Calcium 8.7 (8.6-10.3) mg/dL Adrenal panel 08/30/17 Range/Units 04:00 Sodium 146 H (136-145) mEq/L Potassium 3.2 L (3.5-5.1) mEq/L Chloride 110 H (98-107) mEq/L Carbon Dioxide 31 H (23-29) mEq/L BUN 21 (8-23) mg/dL Creatinine 0.43 L (0.60-1.20) mg/dL Glucose 118 H (70-105) mg/dL Calcium 8.7 (8.6-10.3) mg/dL - Attending Attestation I examined this patient and my medical decision-making was reviewed with the Resident Physician. I agree with the documented findings, disposition and treatment plan as described except to the extent set forth below. The patient is seen and evaluated on morning rounds with the resident. The patient is discussed with the clinical nurse practitioner. Patient has made great strides in the last 24 hours. She now has bowel sounds and ileostomy output. We will try and get the nasogastric tube out later today. Continue TPN and supportive care. Careful attention to electrolytes. Luis Hudson MD FACS
[2017-08-29] MEDS: Pantoprazole 40 MG VIAL IVP SCH (09:14)
[2017-08-29] MEDS: *HR* Digoxin 0.5 MG/2 ML AMPUL IVP SCH (09:14)
[2017-08-29] MEDS ORDERED: Potassium Phosphate 44 MEQ in 0.9 % Sodium Chloride 250 ML IVPB ONE (11:31)
[2017-08-29] MEDS ORDERED: Clinimix E 5%-15% SOLUTION 2,000 ML with MVI, adult with vitamin K 10 ML IVC SCH (17:00)
[2017-08-30] MEDS: Ondansetron 4 MG/2 ML VIAL IVP PRN (03:53)
[2017-08-30] MEDS: OXYCODONE Oral CONC 10 MG/0.5 ML ORAL.SYG SL PRN ×2 (04:06→20:32)
[2017-08-30 04:39] LABS: Basophils % 0.2 %; Eosinophils # 0.2 K/mcL (0.0-0.6); Eosinophils % 4.3 %; Hematocrit 36.7 % (35.3-44.9); Hemoglobin 10.8 g/dL (11.5-15.4); Immature Granulocytes % 1.1 % (0-4); Lymphocytes # 0.5 K/mcL (0.6-4.6); Lymphocytes % 9.5 %; Mean Corpuscular HGB Conc 29.4 g/dL (31.6-35.5); Mean Corpuscular Hemoglobin 24.7 pg (28.0-33.3); Mean Corpuscular Volume 83.8 fL (83.0-100.0); Mean Platelet Volume 10.4 fL (9.4-12.4); Monocytes # 0.5 K/mcL (0.0-1.3); Monocytes % 9.2 %; Neutrophils # 4.2 K/mcL (1.6-8.9); Nucleated Red Blood Cells 0.4 /100 WBC (0); Platelet Count 186 K/mcL (140-400); Red Blood Count 4.38 M/mcL (3.82-4.97); Segmented Neutrophils % 75.7 %
[2017-08-30 04:52] LABS: BUN/Creatinine Ratio 49 (6-26); Blood Urea Nitrogen 21 mg/dL (8-23); Calcium 8.7 mg/dL (8.6-10.3); Carbon Dioxide 31 mEq/L (23-29); Chloride 110 mEq/L (98-107); Glucose 118 mg/dL (70-105); Magnesium 1.9 mg/dL (1.6-2.6); Osmolality,Calculated 306 (280-300); Phosphorous 2.8 mg/dL (2.7-4.5); Potassium 3.2 mEq/L (3.5-5.1); Sodium 146 mEq/L (136-145); eGFR For African Americans > 60 (> 60); eGFR For Non-African Americans > 60 (> 60)
[2017-08-30] MEDS: *HR* Heparin 5,000 UNIT/ML VIAL SQ SCH ×2 (06:28→18:58)
[2017-08-30] MEDS: *HR* Metoprolol 5 MG/5 ML VIAL IVP PRN ×2 (06:29→20:32)
[2017-08-30] MEDS: *HR* Digoxin 0.5 MG/2 ML AMPUL IVP SCH (08:02)
[2017-08-30] MEDS: Pantoprazole 40 MG VIAL IVP SCH (08:02)
--- NOTE | 2017-08-30 09:08 | General Surgery Progress Note ---
Date of Encounter: 08/30/17 Time of Encounter: 07:00 - Assessment and Plan (1) S/P colectomy Current Visit: Yes Status: Acute Patient is POD#6. 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 Bowel sounds present. -Nasogastric tube has been discontinued yesterday. She has bowel sounds and ileostomy output. She admits nausea and vomiting last night. Will order 20 mg of reglan Q6 hours for 36 hours. Discontinue the reglan after 36 hours. -Potassium was 3.2 today. Will order 40mg potassium IV. Repeat labs in the am. -Monitor the glucose carefully due to D5 1/2 NS and TPN. If glucose is greater than 150, will plan to start NPO low dose sliding scale. -NPO diet except ice chips. Do not give liquid. -Pathology pending. -IVF- D5 1/2NS PRN hypoglycemia. -PICC line placed in the left mid to lower svc per nurse note. May titrate IVF to off when TPN goal is met. -Mercedes for strict I/O -OOBTC as tolerated. Goal is 3 times per day. PT/OT following -IS -Supportive care, pain control, GI prophylaxis -We will continue to monitor. (2) Ileostomy care Current Visit: Yes Status: Acute (3) Leukocytosis Current Visit: Yes Status: Resolved Resolved. Leukocytosis most likely secondary to surgery. White blood count within normal limits today and continues to trend down. Qualifiers: Leukocytosis type: unspecified Qualified Code(s): D72.829 - Elevated white blood cell count, unspecified Subjective Patient reports: pain is less, nausea Narrative: The patient was seen and evaluated at bedside this morning. The patient is awake, alert, afebrile, and appears in no acute distress. Patient states that she has vomited twice last night without any blood in her emesis. She admits she is still nauseous and was just given medications prior to my exam. She states that the pain is controlled. She also admits she has shortness of breath. She denies any fever, headaches, Vision changes, near syncope, chest pain, difficulty breathing, abdominal pain, urinary symptoms, numbness and tingling, and any weaknesses. Objective Vital Signs - Last 8 Hours Temp Pulse Resp BP Pulse Ox 08/30/17 07:39 99.7 F H 80 18 140/74 96 08/30/17 06:25 165/81 08/30/17 04:18 98.3 F 103 16 163/95 96 Intake and Output 08/29/17 08/30/17 08/30/17 23:59 07:59 15:59 Intake Total 1000 / 1000 310 / 310 Output Total 200 / 200 730 / 730 Balance 800 / 800 -420 / -420 Intake: IV Fluids 1000 / 1000 250 / 250 0.9 % Sodium Chloride 1,000 ML 1000 / 1000 @ 75 mls/hr IVC .[id number] [facility] Rx #:[id number] Intralipid 20% 250 ML @ 21 mls/ 250 / 250 hr IVPB DAILY@1700 [facility] Rx#: [id number] Oral 0 / 0 60 / 60 Output: Stool 200 / 200 Catheter 200 / 200 500 / 500 Gastric Drainage 30 / 30 Other: Meal NPO Percent of Meal Consumed 0% Weight 75.4 kg Blood Glucose* 126 152 Patient Weight 08/30/17 23:59 Weight 75.4 kg - General physical appearance well developed, well nourished, no distress - Eyes PERRL, normal ocular movement - ENT normal mucosa - Neck Neck exam: trachea midline - Respiratory normal expansion, normal respiratory effort - Cardiovascular Cardiovascular exam: Present: RRR, no murmurs/rubs/gallops - Abdomen Abdomen: Present: bowel sounds present, soft, tender (appropiate post op tenderness near her surgical incisions.) - Incision Incision: Present: clean and dry, intact. Absent: draining, purulent - Integumentary no rash - Neurologic CN 2-12 grossly intact - Psychiatric oriented to time, oriented to person, oriented to place - Labs 08/30/17 04:00 08/30/17 04:00 Diabetes panel 08/30/17 Range/Units 04:00 Sodium 146 H (136-145) mEq/L Potassium 3.2 L (3.5-5.1) mEq/L Chloride 110 H (98-107) mEq/L Carbon Dioxide 31 H (23-29) mEq/L BUN 21 (8-23) mg/dL Creatinine 0.43 L (0.60-1.20) mg/dL Glucose 118 H (70-105) mg/dL Calcium 8.7 (8.6-10.3) mg/dL Calcium panel 08/30/17 08/30/17 Range/Units 04:00 04:00 Calcium 8.7 (8.6-10.3) mg/dL Phosphorus 2.8 (2.7-4.5) mg/dL Pituitary panel 08/30/17 Range/Units 04:00 Sodium 146 H (136-145) mEq/L Potassium 3.2 L (3.5-5.1) mEq/L Chloride 110 H (98-107) mEq/L Carbon Dioxide 31 H (23-29) mEq/L BUN 21 (8-23) mg/dL Creatinine 0.43 L (0.60-1.20) mg/dL Glucose 118 H (70-105) mg/dL Calcium 8.7 (8.6-10.3) mg/dL Adrenal panel 08/30/17 Range/Units 04:00 Sodium 146 H (136-145) mEq/L Potassium 3.2 L (3.5-5.1) mEq/L Chloride 110 H (98-107) mEq/L Carbon Dioxide 31 H (23-29) mEq/L BUN 21 (8-23) mg/dL Creatinine 0.43 L (0.60-1.20) mg/dL Glucose 118 H (70-105) mg/dL Calcium 8.7 (8.6-10.3) mg/dL - VTE Documentation of Mechanical Device: Intermittent pneumatic compression device Consult Discharge Plan - Plan Referrals: Luis Hudson MD [Partnered Physician] - 09/08/17 9:30 am
[2017-08-30] MEDS ORDERED: Potassium Chloride 40 MEQ, Lidocaine 1% 2 ML in D5% in Water 500 ML IVPB ONE (09:27)
[2017-08-30] MEDS ORDERED: Metoclopramide 10 MG/2 ML VIAL IVP SCH (09:32)
[2017-08-30] MEDS: Metoclopramide 20 MG in 0.9 % Sodium Chloride 50 ML IVPB SCH ×3 (10:45→22:12)
[2017-08-30] MEDS ORDERED: D5% in Water 1,000 ML IVC PRN (11:16)
[2017-08-30] MEDS ORDERED: *HR* Dextrose 50 % in Water (Syg) 50 ML SYRINGE IVP PRN (11:16)
[2017-08-30] MEDS ORDERED: Dextrose Gel 15 GM/37.5 ML TUBE PO PRN ×2 (11:16)
[2017-08-30] MEDS: Insulin LISPRO 300 UNITS/3 ML VIAL SQ SCH ×3 (15:50→23:51)
[2017-08-30] MEDS ORDERED: Clinimix E 5%-15% SOLUTION 2,000 ML with MVI, adult with vitamin K 10 ML IVC SCH (17:00)
[2017-08-31] MEDS: Metoclopramide 20 MG in 0.9 % Sodium Chloride 50 ML IVPB SCH ×3 (04:06→15:20)
[2017-08-31] MEDS: Insulin LISPRO 300 UNITS/3 ML VIAL SQ SCH ×3 (04:08→17:49)
[2017-08-31 04:39] LABS: Basophils % 0.4 %; Eosinophils # 0.4 K/mcL (0.0-0.6); Eosinophils % 4.8 %; Hematocrit 35.4 % (35.3-44.9); Hemoglobin 10.5 g/dL (11.5-15.4); Lymphocytes # 0.5 K/mcL (0.6-4.6); Lymphocytes % 7.1 %; Mean Corpuscular HGB Conc 29.7 g/dL (31.6-35.5); Mean Corpuscular Hemoglobin 25.1 pg (28.0-33.3); Mean Corpuscular Volume 84.7 fL (83.0-100.0); Mean Platelet Volume 10.7 fL (9.4-12.4); Monocytes # 0.7 K/mcL (0.0-1.3); Monocytes % 9.2 %; Neutrophils # 5.7 K/mcL (1.6-8.9); Nucleated Red Blood Cells 0.4 /100 WBC (0); Platelet Count 183 K/mcL (140-400); Red Blood Count 4.18 M/mcL (3.82-4.97); Red Cell Distribution Width 17.9 % (11.5-14.5); Segmented Neutrophils % 76.5 %
[2017-08-31 04:51] LABS: BUN/Creatinine Ratio 54 (6-26); Blood Urea Nitrogen 20 mg/dL (8-23); Calcium 8.6 mg/dL (8.6-10.3); Carbon Dioxide 32 mEq/L (23-29); Chloride 107 mEq/L (98-107); Glucose 114 mg/dL (70-105); Osmolality,Calculated 301 (280-300); Phosphorous 2.8 mg/dL (2.7-4.5); Potassium 3.8 mEq/L (3.5-5.1); Sodium 144 mEq/L (136-145); eGFR For African Americans > 60 (> 60); eGFR For Non-African Americans > 60 (> 60)
[2017-08-31] MEDS: *HR* Heparin 5,000 UNIT/ML VIAL SQ SCH ×2 (04:52→17:48)
[2017-08-31] MEDS: OXYCODONE Oral CONC 10 MG/0.5 ML ORAL.SYG SL PRN ×2 (04:52→16:47)
--- NOTE | 2017-08-31 08:16 | General Surgery Progress Note ---
<Jael Zhang-Kay - Last Filed: 08/31/17 08:41> Date of Encounter: 08/31/17 Time of Encounter: 06:30 - Assessment and Plan (1) S/P colectomy Current Visit: Yes Status: Acute Patient is POD#7. 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 Bowel sounds present. -She has bowel sounds and ileostomy output. Patient denies any nausea and vomiting. -Potassium was 3.2 yesterday and improved to 3.8 today. -Monitor the glucose carefully due to D5 1/2 NS and TPN. If glucose is greater than 150, will plan to start NPO low dose sliding scale. -Advance to clear liquid diet. Advance diet as tolerated. 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 -PICC line placed in the left mid to lower svc per nurse note. May titrate IVF to off when TPN goal is met. -Mercedes for strict I/O -OOBTC as tolerated. Goal is 3 times per day. PT/OT following -IS -Supportive care, pain control, GI prophylaxis -We will continue to monitor. (2) Ileostomy care Current Visit: Yes Status: Acute (3) Leukocytosis Current Visit: Yes Status: Resolved Resolved. Leukocytosis most likely secondary to surgery. White blood count within normal limits today and continues to trend down. Qualifiers: Leukocytosis type: unspecified Qualified Code(s): D72.829 - Elevated white blood cell count, unspecified Subjective Patient reports: no new complaints, feels better, pain is less Narrative: The patient was seen and evaluated at bedside this morning. The patient was awake, alert, interactive, afebrile, and appears in no acute distress. Patient states that she slept better last night and feels better today when compared to yesterday. She denies any nausea and vomiting overnight. The patient admits she was able to get out of bed and into the chair and walked the carter for approximately one hour without any difficulty. The patient denies any fevers, headaches, vision changes, near syncope, chest pain, shortness of breath, difficulty breathing, diarrhea, blood in stool, urinary symptoms, numbness and tingling, and any other weaknesses. The patient has no other concerns at this time. Objective Vital Signs - Last 8 Hours Temp Pulse Resp BP Pulse Ox 08/31/17 06:21 99.4 F 113 14 150/84 96 08/31/17 04:00 100.0 F H 104 16 146/79 96 Intake and Output 08/30/17 08/31/17 08/31/17 23:59 07:59 15:59 Intake Total 108 / 108 304 / 304 Output Total 600 / 600 600 / 600 Balance -492 / -492 -296 / -296 Intake: IV Fluids 108 / 108 304 / 304 Intralipid 20% 250 ML @ 21 mls/ 250 / 250 hr IVPB DAILY@1700 [facility] Rx#: [id number] Reglan 20 MG In 0.9 % Sodium 108 / 108 54 / 54 Chloride 50 ML @ 108 mls/hr IVPB Q6H [facility] Rx#:[id number] Oral 0 / 0 0 / 0 Output: Stool 400 / 400 350 / 350 Catheter 200 / 200 250 / 250 Other: Weight 76.7 kg Blood Glucose* 113 124 Patient Weight 08/31/17 23:59 Weight 76.7 kg - General physical appearance well developed, well nourished, no distress - Eyes PERRL, normal ocular movement - ENT normal mucosa - Neck Neck exam: trachea midline - Respiratory normal expansion, normal respiratory effort, clear to auscultation - Cardiovascular Cardiovascular exam: Present: RRR, no murmurs/rubs/gallops - Abdomen Abdomen: Present: bowel sounds present, soft, tender (appropiate post op tenderness near her surgical incisions.) - Incision Incision: Present: clean and dry, intact. Absent: draining, purulent - Integumentary no rash - Neurologic CN 2-12 grossly intact - Psychiatric oriented to time, oriented to person, oriented to place - Labs 08/31/17 04:00 08/31/17 04:00 Diabetes panel 08/31/17 Range/Units 04:00 Sodium 144 (136-145) mEq/L Potassium 3.8 (3.5-5.1) mEq/L Chloride 107 (98-107) mEq/L Carbon Dioxide 32 H (23-29) mEq/L BUN 20 (8-23) mg/dL Creatinine 0.37 L (0.60-1.20) mg/dL Glucose 114 H (70-105) mg/dL Calcium 8.6 (8.6-10.3) mg/dL Calcium panel 08/31/17 08/31/17 Range/Units 04:00 04:00 Calcium 8.6 (8.6-10.3) mg/dL Phosphorus 2.8 (2.7-4.5) mg/dL Pituitary panel 08/31/17 Range/Units 04:00 Sodium 144 (136-145) mEq/L Potassium 3.8 (3.5-5.1) mEq/L Chloride 107 (98-107) mEq/L Carbon Dioxide 32 H (23-29) mEq/L BUN 20 (8-23) mg/dL Creatinine 0.37 L (0.60-1.20) mg/dL Glucose 114 H (70-105) mg/dL Calcium 8.6 (8.6-10.3) mg/dL Adrenal panel 08/31/17 Range/Units 04:00 Sodium 144 (136-145) mEq/L Potassium 3.8 (3.5-5.1) mEq/L Chloride 107 (98-107) mEq/L Carbon Dioxide 32 H (23-29) mEq/L BUN 20 (8-23) mg/dL Creatinine 0.37 L (0.60-1.20) mg/dL Glucose 114 H (70-105) mg/dL Calcium 8.6 (8.6-10.3) mg/dL - VTE Documentation of Mechanical Device: Intermittent pneumatic compression device Consult Discharge Plan - Plan Referrals: Luis Hudson MD [Partnered Physician] - 09/08/17 9:30 am <Luis Hudson - Last Filed: 08/31/17 10:43> Date of Encounter: 08/31/17 Objective Vital Signs - Last 8 Hours Temp Pulse Resp BP Pulse Ox 08/31/17 10:09 99.0 F 63 14 152/80 98 08/31/17 06:21 99.4 F 113 14 150/84 96 08/31/17 04:00 100.0 F H 104 16 146/79 96 Intake and Output 08/30/17 08/31/17 08/31/17 23:59 07:59 15:59 Intake Total 108 / 108 304 / 304 120 / 120 Output Total 600 / 600 600 / 600 350 / 350 Balance -492 / -492 -296 / -296 -230 / -230 Intake: IV Fluids 108 / 108 304 / 304 Intralipid 20% 250 ML @ 21 mls/ 250 / 250 hr IVPB DAILY@1700 [facility] Rx#: [id number] Reglan 20 MG In 0.9 % Sodium 108 / 108 54 / 54 Chloride 50 ML @ 108 mls/hr IVPB Q6H [facility] Rx#:[id number] Oral 0 / 0 0 / 0 120 / 120 Output: Stool 400 / 400 350 / 350 125 / 125 Catheter 200 / 200 250 / 250 225 / 225 Other: Meal Breakfast Weight 76.7 kg Blood Glucose* 113 124 Patient Weight 08/31/17 23:59 Weight 76.7 kg - Labs 08/31/17 04:00 08/31/17 04:00 Diabetes panel 08/31/17 Range/Units 04:00 Sodium 144 (136-145) mEq/L Potassium 3.8 (3.5-5.1) mEq/L Chloride 107 (98-107) mEq/L Carbon Dioxide 32 H (23-29) mEq/L BUN 20 (8-23) mg/dL Creatinine 0.37 L (0.60-1.20) mg/dL Glucose 114 H (70-105) mg/dL Calcium 8.6 (8.6-10.3) mg/dL Calcium panel 08/31/17 08/31/17 Range/Units 04:00 04:00 Calcium 8.6 (8.6-10.3) mg/dL Phosphorus 2.8 (2.7-4.5) mg/dL Pituitary panel 08/31/17 Range/Units 04:00 Sodium 144 (136-145) mEq/L Potassium 3.8 (3.5-5.1) mEq/L Chloride 107 (98-107) mEq/L Carbon Dioxide 32 H (23-29) mEq/L BUN 20 (8-23) mg/dL Creatinine 0.37 L (0.60-1.20) mg/dL Glucose 114 H (70-105) mg/dL Calcium 8.6 (8.6-10.3) mg/dL Adrenal panel 08/31/17 Range/Units 04:00 Sodium 144 (136-145) mEq/L Potassium 3.8 (3.5-5.1) mEq/L Chloride 107 (98-107) mEq/L Carbon Dioxide 32 H (23-29) mEq/L BUN 20 (8-23) mg/dL Creatinine 0.37 L (0.60-1.20) mg/dL Glucose 114 H (70-105) mg/dL Calcium 8.6 (8.6-10.3) mg/dL - Attending Attestation I examined this patient and my medical decision-making was reviewed with the Resident Physician. I agree with the documented findings, disposition and treatment plan as described except to the extent set forth below. The patient is seen and evaluated on morning rounds with the resident. She is doing tremendously well. We will start clear liquid diet today. She has excellent ileostomy output Luis Hudson MD FACS
[2017-08-31] MEDS: *HR* Digoxin 0.5 MG/2 ML AMPUL IVP SCH (08:22)
[2017-08-31] MEDS: Pantoprazole 40 MG VIAL IVP SCH (08:22)
[2017-08-31] MEDS ORDERED: Clinimix E 5%-15% SOLUTION 2,000 ML with MVI, adult with vitamin K 10 ML IVC SCH (17:00)
[2017-09-01] MEDS: Insulin LISPRO 300 UNITS/3 ML VIAL SQ SCH ×4 (00:05→21:05)
[2017-09-01] MEDS: *HR* Heparin 5,000 UNIT/ML VIAL SQ SCH ×2 (05:58→17:53)
[2017-09-01 07:04] LABS: BUN/Creatinine Ratio 49 (6-26); Blood Urea Nitrogen 19 mg/dL (8-23); Calcium 8.3 mg/dL (8.6-10.3); Carbon Dioxide 32 mEq/L (23-29); Chloride 104 mEq/L (98-107); Glucose 142 mg/dL (70-105); Magnesium 1.9 mg/dL (1.6-2.6); Osmolality,Calculated 295 (280-300); Phosphorous 2.8 mg/dL (2.7-4.5); Potassium 3.7 mEq/L (3.5-5.1); Sodium 140 mEq/L (136-145); eGFR For African Americans > 60 (> 60); eGFR For Non-African Americans > 60 (> 60)
--- NOTE | 2017-09-01 07:23 | General Surgery Progress Note ---
<Jael Zhang-Kay - Last Filed: 09/01/17 08:27> Date of Encounter: 09/01/17 Time of Encounter: 06:30 - Assessment and Plan (1) S/P colectomy Current Visit: Yes Status: Acute Patient is POD#8. 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 Bowel sounds present. -She has no bowel sounds and minimal ileostomy output. Patient denies any nausea and vomiting.Patient was advanced to clear liquid diet yesterday and did not tolerate it well. Patient admitted epigastric pain and distention. Acute abdominal series on 08/31/17 reports reads stable small left pleural effusion with associated atelectasis or consolidation. Few scattered nonspecific air- fluid levels in the upper abdomen, possibly representing a functional ileus. Continue NPO diet now. -Will order 20mg Reglan Q6h for 36hours. Discontinue after 36 hours. -Potassium was 3.7 today -Monitor the glucose carefully due to D5 1/2 NS and TPN. If glucose is greater than 150, will plan to start NPO low dose sliding scale. 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 -PICC line placed in the left mid to lower svc per nurse note. May titrate IVF to off when TPN goal is met. -Mercedes for strict I/O -OOBTC as tolerated. Goal is 3 times per day. PT/OT following -IS -Supportive care, pain control, GI prophylaxis -We will continue to monitor. (2) Ileostomy care Current Visit: Yes Status: Acute (3) Leukocytosis Current Visit: Yes Status: Resolved Resolved. Leukocytosis most likely secondary to surgery. White blood count within normal limits today and continues to trend down. Qualifiers: Leukocytosis type: unspecified Qualified Code(s): D72.829 - Elevated white blood cell count, unspecified Subjective Patient reports: feels better, afebrile Narrative: The patient was seen and evaluated at bedside this morning. Patient was awake, alert, interactive, afebrile, and appears in no acute distress. Yesterday the patient complained of some epigastric pain that she describes as "bloated and pressure" that is mildy painful. Patient states that she believes it was due to "drinking my apple juice too fast". She denies any flatus but admits she is belching more. She admits belching makes the epigastric pain better. The patient denies any fever, headaches, vision changes, chest pain, shortness of breath, difficulty breathing, blood in the stool, urinary symptoms, numbness and tingling, and any weaknesses. The patient has no other concerns at this time. Objective Vital Signs - Last 8 Hours Temp Pulse Resp BP Pulse Ox 09/01/17 06:58 99.6 F 102 18 146/78 95 09/01/17 04:16 97.7 F 106 20 141/68 97 09/01/17 00:25 99.7 F H 97 14 154/77 95 Intake and Output 08/31/17 08/31/17 09/01/17 15:59 23:59 07:59 Intake Total 414 / 414 0 / 0 Output Total 550 / 550 125 / 125 650 / 650 Balance -136 / -136 -125 / -125 -650 / -650 Intake: IV Fluids 54 / 54 Reglan 20 MG In 0.9 % Sodium 54 / 54 Chloride 50 ML @ 108 mls/hr IVPB Q6H [facility] Rx#:[id number] Oral 360 / 360 0 / 0 Output: Stool 125 / 125 125 / 125 150 / 150 Catheter 425 / 425 500 / 500 Other: Meal Lunch NPO NPO Stool Consistency liquid Stool Color Brown Weight 77.3 kg Blood Glucose* 125 124 124 Patient Weight 09/01/17 23:59 Weight 77.3 kg - General physical appearance well developed, well nourished, no distress - Eyes PERRL, normal ocular movement - ENT normal mucosa - Neck Neck exam: trachea midline - Respiratory normal expansion, normal respiratory effort, clear to percussion - Cardiovascular Cardiovascular exam: Present: tachycardia, no murmurs/rubs/gallops - Abdomen Abdomen: Present: soft, tender (Tenderness near epigastric region on palpation. appropiate post op tenderness near surgical incision.). Absent: bowel sounds present Abdominal Tenderness: epigastic - Incision Incision: Present: clean and dry, intact. Absent: draining, purulent - Integumentary no rash - Neurologic CN 2-12 grossly intact - Psychiatric oriented to time, oriented to person, oriented to place - Labs 08/31/17 04:00 09/01/17 06:16 Diabetes panel 09/01/17 Range/Units 06:16 Sodium 140 (136-145) mEq/L Potassium 3.7 (3.5-5.1) mEq/L Chloride 104 (98-107) mEq/L Carbon Dioxide 32 H (23-29) mEq/L BUN 19 (8-23) mg/dL Creatinine 0.39 L (0.60-1.20) mg/dL Glucose 142 H (70-105) mg/dL Calcium 8.3 L (8.6-10.3) mg/dL Calcium panel 09/01/17 Range/Units 06:16 Calcium 8.3 L (8.6-10.3) mg/dL Phosphorus 2.8 (2.7-4.5) mg/dL Pituitary panel 09/01/17 Range/Units 06:16 Sodium 140 (136-145) mEq/L Potassium 3.7 (3.5-5.1) mEq/L Chloride 104 (98-107) mEq/L Carbon Dioxide 32 H (23-29) mEq/L BUN 19 (8-23) mg/dL Creatinine 0.39 L (0.60-1.20) mg/dL Glucose 142 H (70-105) mg/dL Calcium 8.3 L (8.6-10.3) mg/dL Adrenal panel 09/01/17 Range/Units 06:16 Sodium 140 (136-145) mEq/L Potassium 3.7 (3.5-5.1) mEq/L Chloride 104 (98-107) mEq/L Carbon Dioxide 32 H (23-29) mEq/L BUN 19 (8-23) mg/dL Creatinine 0.39 L (0.60-1.20) mg/dL Glucose 142 H (70-105) mg/dL Calcium 8.3 L (8.6-10.3) mg/dL - VTE Documentation of Mechanical Device: Intermittent pneumatic compression device Consult Discharge Plan - Plan Referrals: Luis Hudson MD [Partnered Physician] - 09/08/17 9:30 am <Luis Hudson - Last Filed: 09/03/17 12:23> Date of Encounter: 09/01/17 Objective Vital Signs - Last 8 Hours Temp Pulse Resp BP Pulse Ox 09/03/17 11:02 97.8 F 106 18 143/78 94 09/03/17 10:13 96 09/03/17 07:18 98.1 F 101 18 146/74 96 Intake and Output 09/02/17 09/03/17 09/03/17 23:59 07:59 15:59 Intake Total 0 / 0 0 / 0 Output Total 150 / 150 425 / 425 0 / 0 Balance -150 / -150 -425 / -425 0 / 0 Intake: Oral 0 / 0 0 / 0 Output: Urine 300 / 300 0 / 0 Stool 150 / 150 125 / 125 Other: Meal npo Stool Consistency liquid liquid Stool Color Brown Brown # Voids 2 1 Weight 77.1 kg Blood Glucose* 120 109 111 Patient Weight 09/03/17 23:59 Weight 77.1 kg - Labs 09/03/17 08:32 09/03/17 08:32 Diabetes panel 09/03/17 Range/Units 08:32 Sodium 135 L (136-145) mEq/L Potassium 4.3 (3.5-5.1) mEq/L Chloride 101 (98-107) mEq/L Carbon Dioxide 31 H (23-29) mEq/L BUN 22 (8-23) mg/dL Creatinine 0.37 L (0.60-1.20) mg/dL Glucose 127 H (70-105) mg/dL Calcium 8.4 L (8.6-10.3) mg/dL Calcium panel 09/03/17 Range/Units 08:32 Calcium 8.4 L (8.6-10.3) mg/dL Phosphorus 3.6 (2.7-4.5) mg/dL Pituitary panel 09/03/17 Range/Units 08:32 Sodium 135 L (136-145) mEq/L Potassium 4.3 (3.5-5.1) mEq/L Chloride 101 (98-107) mEq/L Carbon Dioxide 31 H (23-29) mEq/L BUN 22 (8-23) mg/dL Creatinine 0.37 L (0.60-1.20) mg/dL Glucose 127 H (70-105) mg/dL Calcium 8.4 L (8.6-10.3) mg/dL Adrenal panel 09/03/17 Range/Units 08:32 Sodium 135 L (136-145) mEq/L Potassium 4.3 (3.5-5.1) mEq/L Chloride 101 (98-107) mEq/L Carbon Dioxide 31 H (23-29) mEq/L BUN 22 (8-23) mg/dL Creatinine 0.37 L (0.60-1.20) mg/dL Glucose 127 H (70-105) mg/dL Calcium 8.4 L (8.6-10.3) mg/dL - Attending Attestation I examined this patient and my medical decision-making was reviewed with the Resident Physician. I agree with the documented findings, disposition and treatment plan as described except to the extent set forth below. The patient is seen and evaluated on morning rounds with the resident. She continues to struggle with postoperative ileus. She will be maintained on TPN until she recovers her bowel function. Continue supportive care. Luis Hudson MD FACS
[2017-09-01] MEDS: Pantoprazole 40 MG VIAL IVP SCH (08:35)
[2017-09-01] MEDS: *HR* Digoxin 0.5 MG/2 ML AMPUL IVP SCH (08:36)
[2017-09-01] MEDS: OXYCODONE Oral CONC 10 MG/0.5 ML ORAL.SYG SL PRN (08:36)
[2017-09-01] MEDS: Metoclopramide 10 MG/2 ML VIAL IVP SCH ×3 (10:09→19:21)
[2017-09-01] MEDS ORDERED: Methylnaltrexone 12 MG/0.6 ML SYRINGE SQ ONE (13:38)
[2017-09-01] MEDS ORDERED: Clinimix E 5%-15% SOLUTION 2,000 ML with MVI, adult with vitamin K 10 ML IVC SCH (17:00)
[2017-09-02] MEDS: Insulin LISPRO 300 UNITS/3 ML VIAL SQ SCH ×4 (01:44→17:30)
[2017-09-02] MEDS: Metoclopramide 10 MG/2 ML VIAL IVP SCH ×4 (01:52→17:29)
[2017-09-02] MEDS: OXYCODONE Oral CONC 10 MG/0.5 ML ORAL.SYG SL PRN ×2 (01:52→17:34)
[2017-09-02] MEDS: *HR* Heparin 5,000 UNIT/ML VIAL SQ SCH ×2 (07:44→17:34)
[2017-09-02 08:19] LABS: BUN/Creatinine Ratio 57 (6-26); Blood Urea Nitrogen 21 mg/dL (8-23); Calcium 8.4 mg/dL (8.6-10.3); Carbon Dioxide 31 mEq/L (23-29); Chloride 102 mEq/L (98-107); Glucose 131 mg/dL (70-105); Magnesium 2.1 mg/dL (1.6-2.6); Osmolality,Calculated 291 (280-300); Phosphorous 3.3 mg/dL (2.7-4.5); Potassium 3.8 mEq/L (3.5-5.1); Sodium 138 mEq/L (136-145); eGFR For African Americans > 60 (> 60); eGFR For Non-African Americans > 60 (> 60)
[2017-09-02] MEDS: *HR* Digoxin 0.5 MG/2 ML AMPUL IVP SCH (08:40)
[2017-09-02] MEDS: Pantoprazole 40 MG VIAL IVP SCH (08:40)
[2017-09-02 08:43] LABS: Basophils # 0.1 K/mcL (0.0-0.2); Basophils % 0.4 %; Eosinophils # 0.3 K/mcL (0.0-0.6); Eosinophils % 2.6 %; Hematocrit 34.9 % (35.3-44.9); Hemoglobin 10.4 g/dL (11.5-15.4); Immature Granulocytes % 3.2 % (0-4); Lymphocytes # 0.7 K/mcL (0.6-4.6); Lymphocytes % 5.7 %; Mean Corpuscular HGB Conc 29.8 g/dL (31.6-35.5); Mean Corpuscular Volume 83.9 fL (83.0-100.0); Mean Platelet Volume 11.1 fL (9.4-12.4); Monocytes # 0.8 K/mcL (0.0-1.3); Monocytes % 6.4 %; Neutrophils # 10.3 K/mcL (1.6-8.9); Nucleated Red Blood Cells 0.2 /100 WBC (0); Platelet Count 288 K/mcL (140-400); Red Blood Count 4.16 M/mcL (3.82-4.97); Red Cell Distribution Width 17.5 % (11.5-14.5); Segmented Neutrophils % 81.7 %
--- NOTE | 2017-09-02 08:56 | General Surgery Progress Note ---
<Jael Zhang-Kay - Last Filed: 09/02/17 17:54> Date of Encounter: 09/02/17 Time of Encounter: 07:50 - Assessment and Plan (1) S/P colectomy Current Visit: Yes Status: Acute Patient is POD#9. 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 Bowel sounds present. -She has bowel sounds today and liquid stool in her ileostomy. Patient denies any nausea and vomiting. Acute abdominal series on 08/31/17 reports reads stable small left pleural effusion with associated atelectasis or consolidation. Few scattered nonspecific air-fluid levels in the upper abdomen, possibly representing a functional ileus. -Continue NPO diet. Ice chips and popsicles are okay -20mg Reglan Q6h for 36hours started on 09/01/17. Discontinue after 36 hours from intial dose. -Potassium was 3.8 today -Monitor the glucose carefully due to D5 1/2 NS and TPN. If glucose is greater than 150, will plan to start NPO low dose sliding scale. 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 -PICC line placed in the left mid to lower svc per nurse note. May titrate IVF to off when TPN goal is met. -Mercedes for strict I/O -OOBTC as tolerated. Goal is 3 times per day. PT/OT following -IS -Supportive care, pain control, GI prophylaxis -We will continue to monitor. (2) Ileostomy care Current Visit: Yes Status: Acute (3) Leukocytosis Current Visit: Yes Status: Resolved Resolved. Leukocytosis most likely secondary to surgery. White blood count within normal limits today and continues to trend down. Qualifiers: Leukocytosis type: unspecified Qualified Code(s): D72.829 - Elevated white blood cell count, unspecified Subjective Patient reports: no new complaints, pain is less, flatus, afebrile Narrative: The patient was seen and evaluated at bedside this morning. Patient is awake, alert, interactive, afebrile, and appears in no acute distress. Patient admits her epigastric abdominal pain has improved but she stated that she still feels bloated. She admits she is passing gas from both ends. She denies any nausea and vomiting at this time. She denies any fever, headaches, near syncope, chest pain, shortness of breath, difficulty breathing, urinary symptoms, and any weaknesses. The patient has no other concerns at this time. Objective Vital Signs - Last 8 Hours Temp Pulse Resp BP Pulse Ox 09/02/17 07:25 98.2 F 92 15 151/91 98 09/02/17 03:37 98.2 F 99 16 148/75 95 Intake and Output 09/01/17 09/02/17 09/02/17 23:59 07:59 15:59 Intake Total 0 / 0 0 / 0 Output Total 450 / 450 0 / 0 Balance -450 / -450 0 / 0 Intake: Oral 0 / 0 0 / 0 Output: Urine 200 / 200 0 / 0 Stool 250 / 250 Other: Meal npo # Voids 1 Weight 77.8 kg Blood Glucose* 121 132 Patient Weight 09/02/17 23:59 Weight 77.8 kg - General physical appearance well developed, well nourished, no distress - Eyes PERRL, normal ocular movement - ENT dry mucosa - Respiratory normal expansion, normal respiratory effort wheezing: bilateral (Bilateral expiratory wheezes in the upper lung rodriguez) - Cardiovascular Cardiovascular exam: Present: RRR, no murmurs/rubs/gallops - Abdomen Abdomen: Present: bowel sounds present, soft, distended (Mildly distended but no change from yesterday exam. ), tender (Appropriate postop tenderness.) Abdominal Tenderness: epigastic - Incision Incision: Present: clean and dry, intact. Absent: draining, purulent - Integumentary no rash - Neurologic CN 2-12 grossly intact - Psychiatric oriented to time, oriented to person, oriented to place - Labs 09/02/17 06:42 09/02/17 06:42 Diabetes panel 09/02/17 Range/Units 06:42 Sodium 138 (136-145) mEq/L Potassium 3.8 (3.5-5.1) mEq/L Chloride 102 (98-107) mEq/L Carbon Dioxide 31 H (23-29) mEq/L BUN 21 (8-23) mg/dL Creatinine 0.37 L (0.60-1.20) mg/dL Glucose 131 H (70-105) mg/dL Calcium 8.4 L (8.6-10.3) mg/dL Calcium panel 09/02/17 Range/Units 06:42 Calcium 8.4 L (8.6-10.3) mg/dL Phosphorus 3.3 (2.7-4.5) mg/dL Pituitary panel 09/02/17 Range/Units 06:42 Sodium 138 (136-145) mEq/L Potassium 3.8 (3.5-5.1) mEq/L Chloride 102 (98-107) mEq/L Carbon Dioxide 31 H (23-29) mEq/L BUN 21 (8-23) mg/dL Creatinine 0.37 L (0.60-1.20) mg/dL Glucose 131 H (70-105) mg/dL Calcium 8.4 L (8.6-10.3) mg/dL Adrenal panel 09/02/17 Range/Units 06:42 Sodium 138 (136-145) mEq/L Potassium 3.8 (3.5-5.1) mEq/L Chloride 102 (98-107) mEq/L Carbon Dioxide 31 H (23-29) mEq/L BUN 21 (8-23) mg/dL Creatinine 0.37 L (0.60-1.20) mg/dL Glucose 131 H (70-105) mg/dL Calcium 8.4 L (8.6-10.3) mg/dL - VTE Documentation of Mechanical Device: Intermittent pneumatic compression device Consult Discharge Plan - Plan Referrals: Luis Hudson MD [Partnered Physician] - 09/08/17 9:30 am <Luis Hudson - Last Filed: 09/03/17 12:27> Date of Encounter: 09/02/17 Objective Vital Signs - Last 8 Hours Temp Pulse Resp BP Pulse Ox 09/03/17 11:02 97.8 F 106 18 143/78 94 09/03/17 10:13 96 09/03/17 07:18 98.1 F 101 18 146/74 96 Intake and Output 09/02/17 09/03/17 09/03/17 23:59 07:59 15:59 Intake Total 0 / 0 0 / 0 Output Total 150 / 150 425 / 425 0 / 0 Balance -150 / -150 -425 / -425 0 / 0 Intake: Oral 0 / 0 0 / 0 Output: Urine 300 / 300 0 / 0 Stool 150 / 150 125 / 125 Other: Meal npo Stool Consistency liquid liquid Stool Color Brown Brown # Voids 2 1 Weight 77.1 kg Blood Glucose* 120 109 111 Patient Weight 09/03/17 23:59 Weight 77.1 kg - Labs 09/03/17 08:32 09/03/17 08:32 Diabetes panel 09/03/17 Range/Units 08:32 Sodium 135 L (136-145) mEq/L Potassium 4.3 (3.5-5.1) mEq/L Chloride 101 (98-107) mEq/L Carbon Dioxide 31 H (23-29) mEq/L BUN 22 (8-23) mg/dL Creatinine 0.37 L (0.60-1.20) mg/dL Glucose 127 H (70-105) mg/dL Calcium 8.4 L (8.6-10.3) mg/dL Calcium panel 09/03/17 Range/Units 08:32 Calcium 8.4 L (8.6-10.3) mg/dL Phosphorus 3.6 (2.7-4.5) mg/dL Pituitary panel 09/03/17 Range/Units 08:32 Sodium 135 L (136-145) mEq/L Potassium 4.3 (3.5-5.1) mEq/L Chloride 101 (98-107) mEq/L Carbon Dioxide 31 H (23-29) mEq/L BUN 22 (8-23) mg/dL Creatinine 0.37 L (0.60-1.20) mg/dL Glucose 127 H (70-105) mg/dL Calcium 8.4 L (8.6-10.3) mg/dL Adrenal panel 09/03/17 Range/Units 08:32 Sodium 135 L (136-145) mEq/L Potassium 4.3 (3.5-5.1) mEq/L Chloride 101 (98-107) mEq/L Carbon Dioxide 31 H (23-29) mEq/L BUN 22 (8-23) mg/dL Creatinine 0.37 L (0.60-1.20) mg/dL Glucose 127 H (70-105) mg/dL Calcium 8.4 L (8.6-10.3) mg/dL - Attending Attestation I examined this patient and my medical decision-making was reviewed with the Resident Physician. I agree with the documented findings, disposition and treatment plan as described except to the extent set forth below. The patient is seen and evaluated with rest and on morning rounds. She continues to struggle with postoperative ileus. She does have ileostomy function, however, her abdomen is somewhat distended and she is nauseated. We will continue hydration and support as well as total parenteral nutrition. Luis Hudson MD FACS
[2017-09-02] MEDS ORDERED: Clinimix E 5%-15% SOLUTION 2,000 ML with MVI, adult with vitamin K 10 ML IVC SCH (17:00)
[2017-09-03] MEDS: Insulin LISPRO 300 UNITS/3 ML VIAL SQ SCH ×4 (00:01→17:05)
[2017-09-03] MEDS: Metoclopramide 10 MG/2 ML VIAL IVP SCH ×2 (00:09→05:52)
[2017-09-03] MEDS: OXYCODONE Oral CONC 10 MG/0.5 ML ORAL.SYG SL PRN ×2 (00:23→18:02)
[2017-09-03] MEDS: *HR* Heparin 5,000 UNIT/ML VIAL SQ SCH ×2 (05:52→17:05)
[2017-09-03 09:26] LABS: Basophils # 0.1 K/mcL (0.0-0.2); Basophils % 0.4 %; Eosinophils # 0.3 K/mcL (0.0-0.6); Eosinophils % 2.5 %; Hemoglobin 9.8 g/dL (11.5-15.4); Immature Granulocytes % 2.5 % (0-4); Lymphocytes # 0.6 K/mcL (0.6-4.6); Lymphocytes % 4.8 %; Mean Corpuscular HGB Conc 30.6 g/dL (31.6-35.5); Mean Corpuscular Hemoglobin 25.1 pg (28.0-33.3); Mean Corpuscular Volume 82.1 fL (83.0-100.0); Mean Platelet Volume 11.3 fL (9.4-12.4); Monocytes % 7.4 %; Platelet Count 344 K/mcL (140-400); Red Cell Distribution Width 17.5 % (11.5-14.5); Segmented Neutrophils % 82.4 %
[2017-09-03 09:47] LABS: BUN/Creatinine Ratio 59 (6-26); Blood Urea Nitrogen 22 mg/dL (8-23); Calcium 8.4 mg/dL (8.6-10.3); Carbon Dioxide 31 mEq/L (23-29); Chloride 101 mEq/L (98-107); Glucose 127 mg/dL (70-105); Osmolality,Calculated 285 (280-300); Phosphorous 3.6 mg/dL (2.7-4.5); Potassium 4.3 mEq/L (3.5-5.1); Sodium 135 mEq/L (136-145); eGFR For African Americans > 60 (> 60); eGFR For Non-African Americans > 60 (> 60)
[2017-09-03] MEDS: *HR* Digoxin 0.5 MG/2 ML AMPUL IVP SCH (09:56)
[2017-09-03] MEDS: Pantoprazole 40 MG VIAL IVP SCH (09:56)
[2017-09-03] MEDS: Metoclopramide 20 MG in 0.9 % Sodium Chloride 50 ML IVPB SCH ×3 (12:13→23:31)
--- NOTE | 2017-09-03 16:07 | General Surgery Progress Note ---
<Jael Zhang-Kay - Last Filed: 09/03/17 16:04> Date of Encounter: 09/03/17 Time of Encounter: 10:00 - Assessment and Plan (1) S/P colectomy Current Visit: Yes Status: Acute Patient is POD#10. 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 Bowel sounds present. -She has bowel sounds today and liquid stool in her ileostomy. Patient denies any nausea and vomiting. Acute abdominal series on 08/31/17 reports reads stable small left pleural effusion with associated atelectasis or consolidation. Few scattered nonspecific air-fluid levels in the upper abdomen, possibly representing a functional ileus. -Continue NPO diet. Ice chips and popsicles are okay -Potassium was 4.3 today -Monitor the glucose carefully due to D5 1/2 NS and TPN. If glucose is greater than 150, will plan to start NPO low dose sliding scale. 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 -PICC line placed in the left mid to lower svc per nurse note. May titrate IVF to off when TPN goal is met. -Mercedes for strict I/O -OOBTC as tolerated. Goal is 3 times per day. PT/OT following -IS -Supportive care, pain control, GI prophylaxis -We will continue to monitor. (2) Ileostomy care Current Visit: Yes Status: Acute (3) Leukocytosis Current Visit: Yes Status: Resolved White blood count elevated 13.3 today. Leukocytosis most likely secondary to surgery. Continue to monitor Qualifiers: Leukocytosis type: unspecified Qualified Code(s): D72.829 - Elevated white blood cell count, unspecified Subjective Patient reports: no new complaints, feels better, pain is less, flatus, no bowel movement, afebrile Objective Vital Signs - Last 8 Hours Temp Pulse Resp BP Pulse Ox 09/03/17 14:22 99.1 F 86 18 132/71 95 09/03/17 11:02 97.8 F 106 18 143/78 94 09/03/17 10:13 96 Intake and Output 09/03/17 09/03/17 09/03/17 07:59 15:59 23:59 Intake Total 0 / 0 0 / 0 Output Total 425 / 425 500 / 500 Balance -425 / -425 -500 / -500 Intake: Oral 0 / 0 0 / 0 Output: Urine 300 / 300 200 / 200 Stool 125 / 125 300 / 300 Other: Meal npo Stool Consistency liquid Stool Color Brown # Voids 1 Weight 77.1 kg Blood Glucose* 109 111 Patient Weight 09/03/17 23:59 Weight 77.1 kg - General physical appearance well developed, well nourished, no distress - Eyes PERRL, normal ocular movement - ENT normal mucosa - Neck Neck exam: trachea midline - Respiratory normal expansion, normal respiratory effort - Cardiovascular Cardiovascular exam: Present: tachycardia, no murmurs/rubs/gallops - Abdomen Abdomen: Present: bowel sounds present (Hypoactive bowel sounds), soft, distended (Mildly distended. No change from yesterday exam), tender ( Appropriate post operative tenderness) - Incision Incision: Present: clean and dry, intact. Absent: draining, erythema, purulent - Integumentary no rash - Neurologic CN 2-12 grossly intact - Psychiatric oriented to time, oriented to person, oriented to place - Labs 09/03/17 08:32 09/03/17 08:32 Diabetes panel 09/03/17 Range/Units 08:32 Sodium 135 L (136-145) mEq/L Potassium 4.3 (3.5-5.1) mEq/L Chloride 101 (98-107) mEq/L Carbon Dioxide 31 H (23-29) mEq/L BUN 22 (8-23) mg/dL Creatinine 0.37 L (0.60-1.20) mg/dL Glucose 127 H (70-105) mg/dL Calcium 8.4 L (8.6-10.3) mg/dL Calcium panel 09/03/17 Range/Units 08:32 Calcium 8.4 L (8.6-10.3) mg/dL Phosphorus 3.6 (2.7-4.5) mg/dL Pituitary panel 09/03/17 Range/Units 08:32 Sodium 135 L (136-145) mEq/L Potassium 4.3 (3.5-5.1) mEq/L Chloride 101 (98-107) mEq/L Carbon Dioxide 31 H (23-29) mEq/L BUN 22 (8-23) mg/dL Creatinine 0.37 L (0.60-1.20) mg/dL Glucose 127 H (70-105) mg/dL Calcium 8.4 L (8.6-10.3) mg/dL Adrenal panel 09/03/17 Range/Units 08:32 Sodium 135 L (136-145) mEq/L Potassium 4.3 (3.5-5.1) mEq/L Chloride 101 (98-107) mEq/L Carbon Dioxide 31 H (23-29) mEq/L BUN 22 (8-23) mg/dL Creatinine 0.37 L (0.60-1.20) mg/dL Glucose 127 H (70-105) mg/dL Calcium 8.4 L (8.6-10.3) mg/dL - VTE Documentation of Mechanical Device: Intermittent pneumatic compression device Consult Discharge Plan - Plan Referrals: Luis Hudson MD [Partnered Physician] - 09/08/17 9:30 am <Luis Hudson - Last Filed: 09/04/17 07:38> Date of Encounter: 09/03/17 Objective Vital Signs - Last 8 Hours Temp Pulse Resp BP Pulse Ox 09/04/17 06:27 98.4 F 90 15 150/80 98 09/04/17 03:54 98.4 F 98 14 153/72 98 09/03/17 23:50 98.0 F 90 16 144/70 95 Intake and Output 09/03/17 09/03/17 09/04/17 15:59 23:59 07:59 Intake Total 54 / 54 54 / 54 1294 / 1294 Output Total 500 / 500 1300 / 1300 1100 / 1100 Balance -446 / -446 -1246 / -1246 194 / 194 Intake: IV Fluids 54 / 54 54 / 54 1174 / 1174 Clinimix E 5%-15% SOLUTION 2, 1020 / 1020 000 ML @ 83.3 mls/hr IVC .Q24H [facility] with M.v.i. Adult 10 ml Rx# :[id number] Reglan 20 MG In 0.9 % Sodium 54 / 54 54 / 54 54 / 54 Chloride 50 ML @ 108 mls/hr IVPB Q6H [facility] Rx#:[id number] Zosyn 3.375 GM In 0.9 % Sodium 100 / 100 Chloride (Mini-Bag +) 100 ML @ 25 mls/hr IVPB Q8H [facility] Rx#: [id number] Oral 0 / 0 0 / 0 120 / 120 Output: Urine 200 / 200 950 / 950 950 / 950 Stool 300 / 300 350 / 350 150 / 150 Other: Meal npo NPO for supper Stool Consistency liquid liquid Stool Color Brown Brown # Voids 0 Weight 77.5 kg Blood Glucose* 111 109 112 Patient Weight 09/04/17 23:59 Weight 77.5 kg - Labs 09/04/17 05:46 09/04/17 05:46 Diabetes panel 09/03/17 09/04/17 Range/Units 08:32 05:46 Sodium 135 L 135 L (136-145) mEq/L Potassium 4.3 4.5 (3.5-5.1) mEq/L Chloride 101 101 (98-107) mEq/L Carbon Dioxide 31 H 29 (23-29) mEq/L BUN 22 19 (8-23) mg/dL Creatinine 0.37 L 0.38 L (0.60-1.20) mg/dL Glucose 127 H 126 H (70-105) mg/dL Calcium 8.4 L 8.3 L (8.6-10.3) mg/dL Calcium panel 09/03/17 09/04/17 Range/Units 08:32 05:46 Calcium 8.4 L 8.3 L (8.6-10.3) mg/dL Phosphorus 3.6 3.6 (2.7-4.5) mg/dL Pituitary panel 09/03/17 09/04/17 Range/Units 08:32 05:46 Sodium 135 L 135 L (136-145) mEq/L Potassium 4.3 4.5 (3.5-5.1) mEq/L Chloride 101 101 (98-107) mEq/L Carbon Dioxide 31 H 29 (23-29) mEq/L BUN 22 19 (8-23) mg/dL Creatinine 0.37 L 0.38 L (0.60-1.20) mg/dL Glucose 127 H 126 H (70-105) mg/dL Calcium 8.4 L 8.3 L (8.6-10.3) mg/dL Adrenal panel 09/03/17 09/04/17 Range/Units 08:32 05:46 Sodium 135 L 135 L (136-145) mEq/L Potassium 4.3 4.5 (3.5-5.1) mEq/L Chloride 101 101 (98-107) mEq/L Carbon Dioxide 31 H 29 (23-29) mEq/L BUN 22 19 (8-23) mg/dL Creatinine 0.37 L 0.38 L (0.60-1.20) mg/dL Glucose 127 H 126 H (70-105) mg/dL Calcium 8.4 L 8.3 L (8.6-10.3) mg/dL - Attending Attestation I examined this patient and my medical decision-making was reviewed with the Resident Physician. I agree with the documented findings, disposition and treatment plan as described except to the extent set forth below. The patient is seen and evaluated with rest and on morning rounds. She continues to have ileus with minimal ileostomy output. Chest x-ray suggestive of pneumonia. We initiated appropriate treatment. Luis Hudson MD FACS
[2017-09-03] MEDS ORDERED: Clinimix E 5%-15% SOLUTION 2,000 ML with MVI, adult with vitamin K 10 ML IVC SCH (17:00)
[2017-09-03 18:20] LABS: Bilirubin,Urine Negative (Negative); Blood,Urine Negative (Negative); Clarity,Urine Cloudy (Clear); Color,Urine Yellow (Yellow); Glucose,Urine (UA) Normal (Normal); Ketones,Urine Negative (Negative); Leukocyte Esterase,Urine Small (Negative); Nitrite,Urine Negative (Negative); Protein,Urine Negative (Neg-Trace); Specific Gravity,Urine 1.023 (1.010-1.025); Urobilinogen,Urine Normal (Normal)
[2017-09-03 18:25] LABS: Bacteria,Urine None Seen per hpf (None-Few); Hyaline Casts,Urine None Seen per lpf (None-Few); Squamous Epithelial Cell,Urine Many per lpf (None-Few); WBC,Urine 15-30 per hpf (0-3)
[2017-09-03 18:49] LABS: RBC,Urine 0-3 per hpf (0-3)
[2017-09-03] MEDS: Piperacillin/Tazobactam 3.375 GM in 0.9 % Sodium Chloride Mini Bag 100 ML IVPB SCH (20:38)
[2017-09-04] MEDS: Insulin LISPRO 300 UNITS/3 ML VIAL SQ SCH ×4 (00:05→17:13)
[2017-09-04] MEDS: Piperacillin/Tazobactam 3.375 GM in 0.9 % Sodium Chloride Mini Bag 100 ML IVPB SCH ×4 (03:22→20:03)
[2017-09-04] MEDS: Metoclopramide 20 MG in 0.9 % Sodium Chloride 50 ML IVPB SCH (05:56)
[2017-09-04 06:25] LABS: BUN/Creatinine Ratio 50 (6-26); Blood Urea Nitrogen 19 mg/dL (8-23); Calcium 8.3 mg/dL (8.6-10.3); Carbon Dioxide 29 mEq/L (23-29); Chloride 101 mEq/L (98-107); Glucose 126 mg/dL (70-105); Magnesium 2.2 mg/dL (1.6-2.6); Osmolality,Calculated 284 (280-300); Phosphorous 3.6 mg/dL (2.7-4.5); Potassium 4.5 mEq/L (3.5-5.1); Sodium 135 mEq/L (136-145); eGFR For African Americans > 60 (> 60); eGFR For Non-African Americans > 60 (> 60)
[2017-09-04] MEDS: OXYCODONE Oral CONC 10 MG/0.5 ML ORAL.SYG SL PRN (06:25)
[2017-09-04] MEDS: *HR* Heparin 5,000 UNIT/ML VIAL SQ SCH ×2 (06:28→17:13)
[2017-09-04 06:40] LABS: Basophils # 0.1 K/mcL (0.0-0.2); Basophils % 0.5 %; Eosinophils # 0.4 K/mcL (0.0-0.6); Eosinophils % 2.6 %; Hematocrit 33.4 % (35.3-44.9); Hemoglobin 10.1 g/dL (11.5-15.4); Immature Granulocytes % 2.3 % (0-4); Lymphocytes # 0.7 K/mcL (0.6-4.6); Lymphocytes % 5.3 %; Mean Corpuscular HGB Conc 30.2 g/dL (31.6-35.5); Mean Corpuscular Hemoglobin 25.4 pg (28.0-33.3); Mean Corpuscular Volume 83.9 fL (83.0-100.0); Monocytes # 1.1 K/mcL (0.0-1.3); Monocytes % 7.7 %; Neutrophils # 11.2 K/mcL (1.6-8.9); Nucleated Red Blood Cells 0.1 /100 WBC (0); Platelet Count 399 K/mcL (140-400); Red Blood Count 3.98 M/mcL (3.82-4.97); Red Cell Distribution Width 17.5 % (11.5-14.5); Segmented Neutrophils % 81.6 %
[2017-09-04] MEDS: *HR* Digoxin 0.5 MG/2 ML AMPUL IVP SCH (10:12)
[2017-09-04] MEDS: Pantoprazole 40 MG VIAL IVP SCH (10:12)
--- NOTE | 2017-09-04 12:32 | General Surgery Progress Note ---
<DeoPatricia A - Last Filed: 09/04/17 12:30> Date of Encounter: 09/04/17 Time of Encounter: 12:30 - Assessment and Plan (1) Colon cancer Current Visit: No Status: Acute POD # #10 subtotal abdominal colectomy with ileostomy #2 lysis adhesions for 2 hours #3 repair of 3 enterotomies (unavoidable in the areas of radiation) with Dr. 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 labs Incentive spirometer every 1 hour while awake Qualifiers: Colon location: overlapping sites Qualified Code(s): C18.8 - Malignant neoplasm of overlapping sites of colon (2) Protein malnutrition Current Visit: No Status: Acute Continue TPN at goal rate Advance to full clear liquid tray today (3) DVT prophylaxis Current Visit: No Status: Acute Heparin 5000 units subcutaneous twice daily for DVT prophylaxis EPCDs to bilateral lower extremities for DVT prophylaxis Ambulate hallways 3 times a day with assistance Subjective Patient reports: no new complaints, feels better, still having pain, pain is less, voiding w/o difficulty, flatus, bowel movement (via colostomy), afebrile Objective Vital Signs - Last 8 Hours Temp Pulse Resp BP Pulse Ox 09/04/17 11:04 98.6 F 90 16 151/78 94 09/04/17 06:27 98.4 F 90 15 150/80 98 Intake and Output 09/03/17 09/04/17 09/04/17 23:59 07:59 15:59 Intake Total / 1294 / 1294 350 / 350 Output Total 1300 / 1300 1100 / 1100 200 / 200 Balance -1246 / -1246 194 / 194 150 / 150 Intake: IV Fluids 54 / 54 1174 / 1174 350 / 350 Clinimix E 5%-15% SOLUTION 2, 1020 / 1020 000 ML @ 83.3 mls/hr IVC .Q24H [facility] with M.v.i. Adult 10 ml Rx# :[id number] Intralipid 20% 250 ML @ 21 mls/ 250 / 250 hr IVPB DAILY@1700 [facility] Rx#: [id number] Reglan 20 MG In 0.9 % Sodium 54 / 54 54 / 54 Chloride 50 ML @ 108 mls/hr IVPB Q6H [facility] Rx#:[id number] Zosyn 3.375 GM In 0.9 % Sodium 100 / 100 100 / 100 Chloride (Mini-Bag +) 100 ML @ 25 mls/hr IVPB Q8H [facility] Rx#: [id number] Oral 0 / 0 120 / 120 0 / 0 Output: Urine 950 / 950 950 / 950 Stool 350 / 350 150 / 150 200 / 200 Other: Meal NPO for supper NPO Percent of Meal Consumed 0% Stool Size Small Stool Consistency liquid liquid liquid Stool Characteristics Mucoid Stool Color Brown Brown Brown # Voids 0 0 Weight 77.5 kg Blood Glucose* 109 112 109 Patient Weight 09/04/17 23:59 Weight 77.5 kg - General physical appearance well developed, well nourished, no distress - Eyes normal ocular movement - ENT normal mucosa, atraumatic, normocephalic - Neck Neck exam: trachea midline - Respiratory normal respiratory effort, clear to auscultation - Cardiovascular Cardiovascular exam: Present: RRR - Abdomen Abdomen: Present: bowel sounds present, soft, tender (minimal, expected post- operative tenderness), wound (Ostomy is pink and moist with positive flatus and liquid brown stool noted) - Incision Incision: Present: clean and dry, intact - Neurologic CN 2-12 grossly intact - Musculoskeletal other (physical deconditioning) - Psychiatric oriented to time, oriented to person, oriented to place, speech is normal, memory intact - Labs 09/04/17 05:46 09/04/17 05:46 Diabetes panel 09/04/17 Range/Units 05:46 Sodium 135 L (136-145) mEq/L Potassium 4.5 (3.5-5.1) mEq/L Chloride 101 (98-107) mEq/L Carbon Dioxide 29 (23-29) mEq/L BUN 19 (8-23) mg/dL Creatinine 0.38 L (0.60-1.20) mg/dL Glucose 126 H (70-105) mg/dL Calcium 8.3 L (8.6-10.3) mg/dL Calcium panel 09/04/17 Range/Units 05:46 Calcium 8.3 L (8.6-10.3) mg/dL Phosphorus 3.6 (2.7-4.5) mg/dL Pituitary panel 09/04/17 Range/Units 05:46 Sodium 135 L (136-145) mEq/L Potassium 4.5 (3.5-5.1) mEq/L Chloride 101 (98-107) mEq/L Carbon Dioxide 29 (23-29) mEq/L BUN 19 (8-23) mg/dL Creatinine 0.38 L (0.60-1.20) mg/dL Glucose 126 H (70-105) mg/dL Calcium 8.3 L (8.6-10.3) mg/dL Adrenal panel 09/04/17 Range/Units 05:46 Sodium 135 L (136-145) mEq/L Potassium 4.5 (3.5-5.1) mEq/L Chloride 101 (98-107) mEq/L Carbon Dioxide 29 (23-29) mEq/L BUN 19 (8-23) mg/dL Creatinine 0.38 L (0.60-1.20) mg/dL Glucose 126 H (70-105) mg/dL Calcium 8.3 L (8.6-10.3) mg/dL - VTE Documentation of Mechanical Device: Intermittent pneumatic compression device Consult Discharge Plan - Plan Referrals: Luis Hudson MD [Partnered Physician] - 09/08/17 9:30 am - Attending Attestation For this encounter, I have reviewed the HR ADVISOR or PA documentation, treatment plan, and medical decision making; and I have had face to face time with this patient. <Luis Hudson - Last Filed: 09/05/17 16:29> Date of Encounter: 09/04/17 Objective Vital Signs - Last 8 Hours Temp Pulse Resp BP Pulse Ox 09/05/17 14:40 98.3 F 89 16 167/84 93 09/05/17 10:56 97.9 F 80 16 141/80 93 Intake and Output 09/05/17 09/05/17 09/05/17 07:59 15:59 23:59 Intake Total 1392 / 1392 1196 / 1196 Output Total 1200 / 1200 1600 / 1600 Balance 192 / 192 -404 / -404 Intake: IV Fluids 1272 / 1272 836 / 836 Clinimix E 5%-15% SOLUTION 2, 922 / 922 736 / 736 000 ML @ 83.3 mls/hr IVC .Q24H [facility] with M.v.i. Adult 10 ml Rx# :[id number] Intralipid 20% 250 ML @ 21 mls/ 250 / 250 hr IVPB DAILY@1700 [facility] Rx#: [id number] Zosyn 3.375 GM In 0.9 % Sodium 100 / 100 100 / 100 Chloride (Mini-Bag +) 100 ML @ 25 mls/hr IVPB Q8H [facility] Rx#: [id number] Oral 120 / 120 360 / 360 Output: Urine 1200 / 1200 1300 / 1300 Stool 300 / 300 Other: Meal Clear Weight 77.474 kg Blood Glucose* 112 108 Patient Weight 09/05/17 23:59 Weight 77.474 kg - Labs 09/05/17 04:53 09/05/17 04:53 Diabetes panel 09/05/17 09/05/17 Range/Units 04:53 04:53 Sodium 138 (136-145) mEq/L Potassium 4.4 (3.5-5.1) mEq/L Chloride 103 (98-107) mEq/L Carbon Dioxide 31 H (23-29) mEq/L BUN 18 (8-23) mg/dL Creatinine 0.42 L (0.60-1.20) mg/dL Glucose 108 H (70-105) mg/dL Calcium 8.4 L (8.6-10.3) mg/dL Triglycerides 105 (< 150) mg/dL Calcium panel 09/05/17 Range/Units 04:53 Calcium 8.4 L (8.6-10.3) mg/dL Phosphorus 3.5 (2.7-4.5) mg/dL Pituitary panel 09/05/17 Range/Units 04:53 Sodium 138 (136-145) mEq/L Potassium 4.4 (3.5-5.1) mEq/L Chloride 103 (98-107) mEq/L Carbon Dioxide 31 H (23-29) mEq/L BUN 18 (8-23) mg/dL Creatinine 0.42 L (0.60-1.20) mg/dL Glucose 108 H (70-105) mg/dL Calcium 8.4 L (8.6-10.3) mg/dL Adrenal panel 09/05/17 Range/Units 04:53 Sodium 138 (136-145) mEq/L Potassium 4.4 (3.5-5.1) mEq/L Chloride 103 (98-107) mEq/L Carbon Dioxide 31 H (23-29) mEq/L BUN 18 (8-23) mg/dL Creatinine 0.42 L (0.60-1.20) mg/dL Glucose 108 H (70-105) mg/dL Calcium 8.4 L (8.6-10.3) mg/dL - Attending Attestation The patient is seen and evaluated on morning rounds. The patient is discussed with clinical nurse practitioner. She continues to struggle with postoperative ileus. She is beginning to make a recovery and will be started on clear liquids today. She does have ostomy output and bowel sounds. She continues to make slow recovery. If she does well overnight we will begin work on placement. Luis Hudson MD FACS
[2017-09-04] MEDS ORDERED: Clinimix E 5%-15% SOLUTION 2,000 ML with MVI, adult with vitamin K 10 ML IVC SCH (17:00)
[2017-09-04] MEDS ORDERED: Piperacillin/Tazobactam 3.375 GM in 0.9 % Sodium Chloride Mini Bag 100 ML IVPB SCH (18:30)
[2017-09-05] MEDS: Insulin LISPRO 300 UNITS/3 ML VIAL SQ SCH ×4 (01:14→17:36)
[2017-09-05] MEDS: Piperacillin/Tazobactam 3.375 GM in 0.9 % Sodium Chloride Mini Bag 100 ML IVPB SCH ×3 (04:56→21:31)
[2017-09-05] MEDS: *HR* Heparin 5,000 UNIT/ML VIAL SQ SCH ×2 (05:12→17:42)
[2017-09-05 05:41] LABS: Basophils # 0.1 K/mcL (0.0-0.2); Basophils % 0.5 %; Eosinophils # 0.3 K/mcL (0.0-0.6); Eosinophils % 2.6 %; Hemoglobin 9.6 g/dL (11.5-15.4); Immature Granulocytes % 1.7 % (0-4); Lymphocytes # 0.7 K/mcL (0.6-4.6); Lymphocytes % 5.3 %; Mean Corpuscular Hemoglobin 25.3 pg (28.0-33.3); Mean Corpuscular Volume 81.6 fL (83.0-100.0); Mean Platelet Volume 10.9 fL (9.4-12.4); Monocytes # 1.2 K/mcL (0.0-1.3); Monocytes % 8.9 %; Neutrophils # 10.6 K/mcL (1.6-8.9); Platelet Count 455 K/mcL (140-400); Red Cell Distribution Width 17.6 % (11.5-14.5)
[2017-09-05 05:53] LABS: BUN/Creatinine Ratio 43 (6-26); Blood Urea Nitrogen 18 mg/dL (8-23); Calcium 8.4 mg/dL (8.6-10.3); Carbon Dioxide 31 mEq/L (23-29); Chloride 103 mEq/L (98-107); Glucose 108 mg/dL (70-105); Magnesium 2.3 mg/dL (1.6-2.6); Osmolality,Calculated 288 (280-300); Phosphorous 3.5 mg/dL (2.7-4.5); Potassium 4.4 mEq/L (3.5-5.1); Sodium 138 mEq/L (136-145); eGFR For African Americans > 60 (> 60); eGFR For Non-African Americans > 60 (> 60)
[2017-09-05] MEDS: Pantoprazole 40 MG VIAL IVP SCH (09:18)
[2017-09-05] MEDS: *HR* Digoxin 0.5 MG/2 ML AMPUL IVP SCH (09:18)
--- NOTE | 2017-09-05 09:26 | General Surgery Progress Note ---
<Jael Zhang-Kay - Last Filed: 09/05/17 09:38> Date of Encounter: 09/05/17 Time of Encounter: 06:50 - Assessment and Plan (1) S/P colectomy Current Visit: Yes Status: Acute Patient is POD#12. 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 Bowel sounds present. 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 If glucose is greater than 150, will plan to start NPO low dose sliding scale. -IVF- D5 1/2NS PRN hypoglycemia. -PICC line placed in the left mid to lower svc per nurse note. May titrate IVF to off when TPN goal is met. -Mercedes for strict I/O -OOBTC as tolerated. Goal is 3 times per day. PT/OT following -IS -Supportive care, pain control, GI prophylaxis -We will continue to monitor. (2) Ileostomy care Current Visit: Yes Status: Acute (3) Leukocytosis Current Visit: Yes Status: Resolved White blood count elevated 13.1 today but is trending down from 13.8 yesterday. Continue to monitor. Qualifiers: Leukocytosis type: unspecified Qualified Code(s): D72.829 - Elevated white blood cell count, unspecified (4) Protein malnutrition Current Visit: No Status: Acute Continue TPN at goal rate continue full clear liquid tray today (5) DVT prophylaxis Current Visit: No Status: Acute Heparin 5000 units subcutaneous twice daily for DVT prophylaxis EPCDs to bilateral lower extremities for DVT prophylaxis Ambulate hallways 3 times a day with assistance Subjective Patient reports: no new complaints, feels better, pain is less, tolerating liquids well, flatus, bowel movement (Liquid stool in osteomy), afebrile Objective Vital Signs - Last 8 Hours Temp Pulse Resp BP Pulse Ox 09/05/17 07:43 98.2 F 97 16 155/81 93 09/05/17 04:41 98.3 F 96 15 158/82 97 Intake and Output 03/19/18 03/20/18 03/20/18 23:59 07:59 15:59 Intake Total 340 / 340 1392 / 1392 456 / 456 Output Total 1450 / 1450 1200 / 1200 Balance -1110 / -1110 192 / 192 456 / 456 Intake: IV Fluids 100 / 100 1272 / 1272 456 / 456 Clinimix E 5%-15% SOLUTION 2, 922 / 922 356 / 356 000 ML @ 83.3 mls/hr IVC .Q24H [facility] with M.v.i. Adult 10 ml Rx# :[id number] Intralipid 20% 250 ML @ 21 mls/ 250 / 250 hr IVPB DAILY@1700 [facility] Rx#: [id number] Zosyn 3.375 GM In 0.9 % Sodium 100 / 100 100 / 100 100 / 100 Chloride (Mini-Bag +) 100 ML @ 25 mls/hr IVPB Q8H [facility] Rx#: [id number] Oral 240 / 240 120 / 120 Output: Urine 1300 / 1300 1200 / 1200 Stool 150 / 150 Other: Meal Clears Percent of Meal Consumed 0% Stool Consistency liquid Stool Color Brown Weight 77.474 kg Blood Glucose* 109 112 Patient Weight 09/05/17 23:59 Weight 77.474 kg - General physical appearance well developed, well nourished, no distress - Eyes PERRL, normal ocular movement - ENT normal mucosa - Neck Neck exam: trachea midline - Respiratory normal expansion, normal respiratory effort, clear to auscultation - Cardiovascular Cardiovascular exam: Present: RRR, no murmurs/rubs/gallops - Abdomen Abdomen: Present: bowel sounds present, soft, tender (Minimal tenderness to palpation. Appropriate postoperative tenderness.), wound (Ostomy is pink and moist with liquid brown stool noted) Hernia: none - Incision Incision: Present: clean and dry, intact - Integumentary no rash - Neurologic CN 2-12 grossly intact - Psychiatric oriented to time, oriented to person, oriented to place - Labs 09/05/17 04:53 09/05/17 04:53 Diabetes panel 09/05/17 09/05/17 Range/Units 04:53 04:53 Sodium 138 (136-145) mEq/L Potassium 4.4 (3.5-5.1) mEq/L Chloride 103 (98-107) mEq/L Carbon Dioxide 31 H (23-29) mEq/L BUN 18 (8-23) mg/dL Creatinine 0.42 L (0.60-1.20) mg/dL Glucose 108 H (70-105) mg/dL Calcium 8.4 L (8.6-10.3) mg/dL Triglycerides 105 (< 150) mg/dL Calcium panel 09/05/17 Range/Units 04:53 Calcium 8.4 L (8.6-10.3) mg/dL Phosphorus 3.5 (2.7-4.5) mg/dL Pituitary panel 09/05/17 Range/Units 04:53 Sodium 138 (136-145) mEq/L Potassium 4.4 (3.5-5.1) mEq/L Chloride 103 (98-107) mEq/L Carbon Dioxide 31 H (23-29) mEq/L BUN 18 (8-23) mg/dL Creatinine 0.42 L (0.60-1.20) mg/dL Glucose 108 H (70-105) mg/dL Calcium 8.4 L (8.6-10.3) mg/dL Adrenal panel 09/05/17 Range/Units 04:53 Sodium 138 (136-145) mEq/L Potassium 4.4 (3.5-5.1) mEq/L Chloride 103 (98-107) mEq/L Carbon Dioxide 31 H (23-29) mEq/L BUN 18 (8-23) mg/dL Creatinine 0.42 L (0.60-1.20) mg/dL Glucose 108 H (70-105) mg/dL Calcium 8.4 L (8.6-10.3) mg/dL - VTE Documentation of Mechanical Device: Intermittent pneumatic compression device Consult Discharge Plan - Plan Referrals: Luis Hudson MD [Partnered Physician] - 09/08/17 9:30 am <Luis Hudson - Last Filed: 09/05/17 16:40> Date of Encounter: 09/05/17 Objective Vital Signs - Last 8 Hours Temp Pulse Resp BP Pulse Ox 09/05/17 14:40 98.3 F 89 16 167/84 93 09/05/17 10:56 97.9 F 80 16 141/80 93 Intake and Output 09/05/17 09/05/17 09/05/17 07:59 15:59 23:59 Intake Total 1392 / 1392 1196 / 1196 Output Total 1200 / 1200 1600 / 1600 Balance 192 / 192 -404 / -404 Intake: IV Fluids 1272 / 1272 836 / 836 Clinimix E 5%-15% SOLUTION 2, 922 / 922 736 / 736 000 ML @ 83.3 mls/hr IVC .Q24H [facility] with M.v.i. Adult 10 ml Rx# :[id number] Intralipid 20% 250 ML @ 21 mls/ 250 / 250 hr IVPB DAILY@1700 [facility] Rx#: [id number] Zosyn 3.375 GM In 0.9 % Sodium 100 / 100 100 / 100 Chloride (Mini-Bag +) 100 ML @ 25 mls/hr IVPB Q8H [facility] Rx#: [id number] Oral 120 / 120 360 / 360 Output: Urine 1200 / 1200 1300 / 1300 Stool 300 / 300 Other: Meal Clear Weight 77.474 kg Blood Glucose* 112 108 Patient Weight 09/05/17 23:59 Weight 77.474 kg - Labs 09/05/17 04:53 09/05/17 04:53 Diabetes panel 09/05/17 09/05/17 Range/Units 04:53 04:53 Sodium 138 (136-145) mEq/L Potassium 4.4 (3.5-5.1) mEq/L Chloride 103 (98-107) mEq/L Carbon Dioxide 31 H (23-29) mEq/L BUN 18 (8-23) mg/dL Creatinine 0.42 L (0.60-1.20) mg/dL Glucose 108 H (70-105) mg/dL Calcium 8.4 L (8.6-10.3) mg/dL Triglycerides 105 (< 150) mg/dL Calcium panel 09/05/17 Range/Units 04:53 Calcium 8.4 L (8.6-10.3) mg/dL Phosphorus 3.5 (2.7-4.5) mg/dL Pituitary panel 09/05/17 Range/Units 04:53 Sodium 138 (136-145) mEq/L Potassium 4.4 (3.5-5.1) mEq/L Chloride 103 (98-107) mEq/L Carbon Dioxide 31 H (23-29) mEq/L BUN 18 (8-23) mg/dL Creatinine 0.42 L (0.60-1.20) mg/dL Glucose 108 H (70-105) mg/dL Calcium 8.4 L (8.6-10.3) mg/dL Adrenal panel 09/05/17 Range/Units 04:53 Sodium 138 (136-145) mEq/L Potassium 4.4 (3.5-5.1) mEq/L Chloride 103 (98-107) mEq/L Carbon Dioxide 31 H (23-29) mEq/L BUN 18 (8-23) mg/dL Creatinine 0.42 L (0.60-1.20) mg/dL Glucose 108 H (70-105) mg/dL Calcium 8.4 L (8.6-10.3) mg/dL - Attending Attestation I examined this patient and my medical decision-making was reviewed with the Resident Physician. I agree with the documented findings, disposition and treatment plan as described except to the extent set forth below. The patient is seen and evaluated on morning rounds with the resident. She continues to make slow progress. We will work on physical therapy and try to advance her diet later today. Luis Hudson MD FACS
[2017-09-05] MEDS ORDERED: *HR* Metoprolol 5 MG/5 ML VIAL IVP PRN (11:24)
[2017-09-05] MEDS: *HR* Metoprolol 5 MG/5 ML VIAL IVP SCH (17:42)
[2017-09-06] MEDS: *HR* Metoprolol 5 MG/5 ML VIAL IVP SCH ×2 (00:41→05:15)
[2017-09-06] MEDS: Insulin LISPRO 300 UNITS/3 ML VIAL SQ SCH ×2 (04:05→05:29)
[2017-09-06] MEDS: *HR* Heparin 5,000 UNIT/ML VIAL SQ SCH ×2 (05:15→17:08)
[2017-09-06] MEDS: Piperacillin/Tazobactam 3.375 GM in 0.9 % Sodium Chloride Mini Bag 100 ML IVPB SCH (05:16)
--- NOTE | 2017-09-06 08:44 | General Surgery Progress Note ---
<Jael Zhang-Kay - Last Filed: 09/06/17 09:27> Date of Encounter: 09/06/17 Time of Encounter: 06:45 - Assessment and Plan (1) S/P colectomy Current Visit: Yes Status: Acute Patient is POD#13. 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 Bowel sounds present. 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 Will start the patient on oral antibiotics- Levaquin 500mg PO once daily. Will consider ordering an EKG this evening to evaluate for possible QT prolongation. Patient is an elderly, on digoxin, and Levaquin. -Resume home medications. -Discontinue the TPN -advance to regular diet. If patient tolerates regular diet without any nausea vomiting, will consider discharging the patient to an ECF. Called and spoke to patient's daughter (eNva Mtz) and has updated her on current plan. -IVF- D5 1/2NS PRN hypoglycemia. -Mercedes for strict I/O -OOBTC as tolerated. Goal is 3 times per day. PT/OT following -IS -Supportive care, pain control, GI prophylaxis -We will continue to monitor. (2) Ileostomy care Current Visit: Yes Status: Acute (3) Leukocytosis Current Visit: Yes Status: Resolved White blood count is trending down. Continue to monitor. Qualifiers: Leukocytosis type: unspecified Qualified Code(s): D72.829 - Elevated white blood cell count, unspecified (4) Protein malnutrition Current Visit: No Status: Acute TPN has been discontinued. Advanced patient to regular diet (5) DVT prophylaxis Current Visit: Yes Status: Acute Heparin 5000 units subcutaneous twice daily for DVT prophylaxis EPCDs to bilateral lower extremities for DVT prophylaxis Ambulate hallways 3 times a day with assistance Subjective Patient reports: no new complaints, feels better, tolerating liquids well, flatus, afebrile Narrative: The patient was seen and evaluated at bedside this morning. She was awake, alert, interactive, afebrile, and appears in no acute distress. The patient states that she feels better today and "ready for some real food". She denies any fever, headaches, vision changes, chest pain, shortness of breath, difficulty breathing, abdominal pain, nausea vomiting, urinary symptoms, and any weaknesses. The patient has no other concerns at this time. Objective Vital Signs - Last 8 Hours Temp Pulse Resp BP Pulse Ox 09/06/17 06:52 98.3 F 86 14 130/75 98 09/06/17 04:53 98.3 F 92 15 126/72 98 Intake and Output 09/05/17 09/06/17 09/06/17 23:59 07:59 15:59 Intake Total 100 / 100 220 / 220 Output Total 0 / 0 1250 / 1250 Balance 100 / 100 -1030 / -1030 Intake: IV Fluids 100 / 100 100 / 100 Clinimix E 5%-15% SOLUTION 2, 0 / 0 000 ML @ 83.3 mls/hr IVC .Q24H [facility] with M.v.i. Adult 10 ml Rx# :[id number] Zosyn 3.375 GM In 0.9 % Sodium 100 / 100 100 / 100 Chloride (Mini-Bag +) 100 ML @ 25 mls/hr IVPB Q8H [facility] Rx#: [id number] Oral 0 / 0 120 / 120 Output: Urine 0 / 0 950 / 950 Stool 300 / 300 Other: Stool Consistency liquid Stool Color Green # Voids 0 Weight 77.74 kg Blood Glucose* 91 83 Patient Weight 09/06/17 23:59 Weight 77.74 kg - General physical appearance well developed, well nourished, no distress - Eyes PERRL - ENT normal mucosa - Neck Neck exam: trachea midline - Respiratory normal expansion, normal respiratory effort, clear to auscultation - Cardiovascular Cardiovascular exam: Present: RRR, no murmurs/rubs/gallops - Abdomen Abdomen: Present: bowel sounds present, soft, tender (Minimal tenderness to palpation. Appropriate postoperative tenderness.) Hernia: none - Incision Incision: Present: clean and dry, intact. Absent: draining, purulent - Integumentary no rash - Neurologic CN 2-12 grossly intact - Psychiatric oriented to time, oriented to person, oriented to place - Labs 09/05/17 04:53 09/05/17 04:53 - VTE Documentation of Mechanical Device: Intermittent pneumatic compression device Consult Discharge Plan - Plan Instructions: Ileostomy Care (DC), Colectomy (DC), Bacterial Pneumonia (DC) Additional Instructions: 1. No pushing, pulling, or lifting greater than 15 lbs for 4 weeks (depending upon procedure). 2. You may shower beginning today, but no tub baths, soaking, or swimming for 2 weeks. 3. You may resume driving when you are off narcotics and are safe to react in a car. 4. Take ibuprofen every 8 hours for discomfort. If this does not relieve discomfort, you may take the as needed Percocet. Take narcotics as directed. Do not take more narcotics then directed and do not share your narcotics with any other person. Do not drink alcohol while on narcotics. 5. Take stool softeners (Colace) or a water based laxative (Miralax) while taking narcotics. You may hold for loose stools. 6. Report any fevers greater than 100.5F, increase abdominal discomfort, drainage that looks like pus, increased redness or pain at the surgical site, or any vomiting. 7. Report any pain in the calves, shortness of breath, or rapid heartbeat. 8. Follow-up in the office as directed. 9. If you were prescribed antibiotics, do not stop them without talking to your provider. Referrals: Patricia Desouza [facility] [Advanced Practice Nurse] - 09/14/17 9:45 am Prescriptions: OxyCODONE/APAP 10/325 [Percocet 10/325 MG] 1 each PO Q6HR PRN 6 Days #24 tablet PRN Reason: Pain Ibuprofen [Motrin] 600 mg PO Q8HR PRN #30 tab PRN Reason: Pain Docusate [Colace] 100 mg PO BID PRN #30 capsule PRN Reason: Constipation levoFLOXacin [Levaquin] 500 mg PO DAILY 6 Days #6 tablet <Luis Hudson - Last Filed: 09/06/17 14:33> Date of Encounter: 09/06/17 Objective Vital Signs - Last 8 Hours Temp Pulse Resp BP Pulse Ox 09/06/17 10:49 98.4 F 84 14 114/69 97 09/06/17 09:15 96 09/06/17 06:52 98.3 F 86 14 130/75 98 Intake and Output 09/05/17 09/06/17 09/06/17 23:59 07:59 15:59 Intake Total 100 / 100 220 / 220 420 / 420 Output Total 0 / 0 1250 / 1250 625 / 625 Balance 100 / 100 -1030 / -1030 -205 / - Intake: IV Fluids 100 / 100 100 / 100 Clinimix E 5%-15% SOLUTION 2, 0 / 0 000 ML @ 83.3 mls/hr IVC .Q24H [facility] with M.v.i. Adult 10 ml Rx# :[id number] Zosyn 3.375 GM In 0.9 % Sodium 100 / 100 100 / 100 Chloride (Mini-Bag +) 100 ML @ 25 mls/hr IVPB Q8H [facility] Rx#: [id number] Oral 0 / 0 120 / 120 420 / 420 Output: Urine 0 / 0 950 / 950 525 / 525 Stool 300 / 300 100 / 100 Other: Meal Breakfast Percent of Meal Consumed 30% Stool Consistency liquid liquid Stool Color Green Brown # Voids 0 1 Weight 77.74 kg Blood Glucose* 91 83 Patient Weight 09/06/17 23:59 Weight 77.74 kg - Labs 09/06/17 06:52 09/06/17 06:52 Diabetes panel 09/06/17 Range/Units 06:52 Sodium 136 (136-145) mEq/L Potassium 4.4 (3.5-5.1) mEq/L Chloride 100 (98-107) mEq/L Carbon Dioxide 30 H (23-29) mEq/L BUN 17 (8-23) mg/dL Creatinine 0.61 (0.60-1.20) mg/dL Glucose 135 H (70-105) mg/dL Calcium 8.9 (8.6-10.3) mg/dL Calcium panel 09/06/17 Range/Units 06:52 Calcium 8.9 (8.6-10.3) mg/dL Pituitary panel 09/06/17 Range/Units 06:52 Sodium 136 (136-145) mEq/L Potassium 4.4 (3.5-5.1) mEq/L Chloride 100 (98-107) mEq/L Carbon Dioxide 30 H (23-29) mEq/L BUN 17 (8-23) mg/dL Creatinine 0.61 (0.60-1.20) mg/dL Glucose 135 H (70-105) mg/dL Calcium 8.9 (8.6-10.3) mg/dL Adrenal panel 09/06/17 Range/Units 06:52 Sodium 136 (136-145) mEq/L Potassium 4.4 (3.5-5.1) mEq/L Chloride 100 (98-107) mEq/L Carbon Dioxide 30 H (23-29) mEq/L BUN 17 (8-23) mg/dL Creatinine 0.61 (0.60-1.20) mg/dL Glucose 135 H (70-105) mg/dL Calcium 8.9 (8.6-10.3) mg/dL - Attending Attestation I examined this patient and my medical decision-making was reviewed with the Resident Physician. I agree with the documented findings, disposition and treatment plan as described except to the extent set forth below. The patient was seen and evaluated on morning rounds with rest. The patient feels much better and is eating in the chair tolerating diet. She would like regular food. We will write for regular diet and her TPN off. We should be able to place her into extended care facility for rehabilitation in the coming days. Luis Hudson MD FACS
[2017-09-06] MEDS: Furosemide 20 MG TABLET PO SCH ×2 (09:22→17:08)
[2017-09-06] MEDS: levoFLOXacin 500 MG TABLET PO SCH (09:23)
[2017-09-06] MEDS: *HR* Digoxin 0.125 MG TABLET PO SCH (09:23)
[2017-09-06] MEDS: Metoprolol XL (24 HR) Succ 50 MG TAB.ER.24H PO SCH (09:24)
[2017-09-06] MEDS: Cholecalciferol (D-3) 1,000 UNIT TABLET PO SCH (09:24)
[2017-09-06] MEDS: (Vitamin A Palmitate [Vitamin A] 10,000 UNIT) PO SCH (09:35)
[2017-09-06] MEDS: GARLIC 2000 MG PO SCH (09:35)
[2017-09-06] MEDS: FLAXSEED OIL 1000 MG PO SCH ×2 (09:35→20:56)
[2017-09-06] MEDS: CYANOCOBALAMIN 100 MCG PO SCH (09:35)
[2017-09-06] MEDS: (Cinnamon Bark [Cinnamon] 1,000 MG) PO SCH (09:35)
--- NOTE | 2017-09-06 09:46 | Discharge Summary ---
Addendum entered and electronically signed by Chrissy Zhang DO 09/07/17 09:01: Mrs. Blackman was expected to be discharged yesterday. However, the ECF required that she has been off her TPN for at least 24 hours. No overnight events noted. On my exam this morning, patient had 2 reddened areas above her buttocks that measured approximately 1.5cm. We will cover the buttock wound with Allevyn. Patient asked if she could shower today and I agree that she may shower today. Patient will be discharge to an ECF today. The patient has no other concerns at this time. Original Note: <Chrissy Zhang - Last Filed: 09/06/17 11:36> Orders not resulted at time of discharge: Pending orders 09/06/17 06:52 Basic Metabolic Panel Routine CBC [Complete Blood Count] [HEME] Routine Date of Encounter: 09/06/17 Time of Encounter: 06:45 - Discharge Diagnosis (1) S/P colectomy Priority: Primary Status: Acute (2) Ileostomy care Priority: Secondary Status: Acute (3) Leukocytosis Priority: Secondary Status: Resolved Qualifiers: Leukocytosis type: unspecified Qualified Code(s): D72.829 - Elevated white blood cell count, unspecified (4) Protein malnutrition Priority: Secondary Status: Acute (5) DVT prophylaxis Priority: Secondary Status: Acute General Surgery Exam Initial Vital Signs Temp Pulse Resp BP Pulse Ox 98.2 F 95 16 133/83 97 08/24/17 13:02 08/24/17 13:02 08/24/17 13:02 08/24/17 13:02 08/24/17 13:02 - General physical appearance well developed, well nourished, no distress - Eyes PERRL, normal ocular movement - ENT normal mucosa - Neck trachea midline - Respiratory normal expansion, normal respiratory effort, clear to auscultation - Cardiovascular Cardiovascular exam: Present: RRR, no murmurs/rubs/gallops - Abdomen Abdomen general surgery: Present: bowel sounds present, soft, tender (Minimal tenderness to palpation. Appropriate and expected postoperative tenderness.) - Incision Incision: Present: clean and dry, intact. Absent: draining, red, erythema, purulent - Integumentary Integumentary general surgery: Present: warm and dry, no abnormal pigmentation. Absent: rash - Neurologic Present: CN 2-12 grossly intact - Psychiatric Psychiatric general surgery: Present: oriented to person, oriented to place, oriented to time - Hospital Course Hospital course: Ms. Blackman is a 81 year old female who is POD #13 s/p subtotal abdominal colectomy with ileostomy, lysis adhesions for 2 hours, and repair of 3 enterotomies (unavoidable in the areas of radiation) with Dr. Luis Hudson. The patient tolerated procedure well. 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 During hospitalization, the patient had leukocytosis with elevated white blood count up to 13.8 and a low-grade fever with a temperature up to 100.2 Fahrenheit. Chest and abdomen x- ray was ordered to further evaluate. The report reads stable small left pleural effusion with associated atelectasis or consolidation. Patient was then started on IV antibiotics to treat possible pneumonia. Patient has tolerated IV antibiotics therapy well. Patient continues to have ostomy output with bowel sounds and flatus. Patient denies any pain or discomfort at this time. Patient admits she would like a regular niles at this time. Patient denies any fever, headaches, vision changes, near syncope, chest pain, shortness of breath, difficulty breathing, abdominal pain, nausea vomiting, urinary symptoms, and any weaknesses. Patient will be referred to an ECF for rehab. Patient was also instructed to continue or antibiotics for 6 more days. Patient was instructed to follow up with his/her primary care physician within one week. Patient was instructed to follow-up in the surgery outpatient clinic. Patient demonstrate verbal understanding. Patient has no other concerns at this time. - Time Spent with Patient Total time spent providing and/or coordinating discharge services: - Discharge Medications Prescriptions: OxyCODONE/APAP 10/325 [Percocet 10/325 MG] 1 each PO Q6HR PRN 6 Days #24 tablet PRN Reason: Pain Ibuprofen [Motrin] 600 mg PO Q8HR PRN #30 tab PRN Reason: Pain Docusate [Colace] 100 mg PO BID PRN #30 capsule PRN Reason: Constipation levoFLOXacin [Levaquin] 500 mg PO DAILY 6 Days #6 tablet Home Medications: Cholecalciferol (Vitamin D3) [Vitamin D3] 1,000 unit PO DAILY 02/13/15 [History] Cinnamon Bark [Cinnamon] 1,000 mg PO DAILY 02/13/15 [History] Cyanocobalamin (Vitamin B-12) [Vitamin B-12] 100 mcg PO DAILY 02/13/15 [History] Flaxseed Oil 1,000 mg PO BID 02/13/15 [History] Garlic 2,000 mg PO DAILY 02/13/15 [History] Lisinopril [Zestril] 2.5 mg PO DAILY 02/13/15 [History] Levothyroxine [Synthroid] 25 mcg PO QAM 06/01/15 [History] Calcium Carbonate [Calcium] 1,200 mg PO BID 03/17/16 [History] Vitamin A Palmitate [Vitamin A] 10,000 unit PO DAILY 03/17/16 [History] Furosemide [Lasix] 20 mg PO BID #60 tablet 05/02/16 [Rx] Simvastatin [Zocor] 20 mg PO HS #90 tablet 06/15/16 [Rx] Guaifenesin [Mucinex] 600 mg PO BID PRN 08/30/16 [History] Clopidogrel Bisulfate [Plavix] 75 mg PO DAILY #30 tablet 12/08/16 [Rx] Digoxin [Lanoxin] 0.125 mg PO DAILY #30 tablet 12/08/16 [Rx] Omeprazole [PriLOSEC] 40 mg PO BIDAC #30 capsule. 07/24/17 [Rx] Metoprolol Succinate [Toprol Xl] 100 mg PO DAILY 08/24/17 [History] Docusate [Colace] 100 mg PO BID PRN #30 capsule 09/06/17 [Rx] Ibuprofen [Motrin] 600 mg PO Q8HR PRN #30 tab 09/06/17 [Rx] OxyCODONE/APAP 10/325 [Percocet 10/325 MG] 1 each PO Q6HR PRN 6 Days #24 tablet 09/06/17 [Rx] levoFLOXacin [Levaquin] 500 mg PO DAILY 6 Days #6 tablet 09/06/17 [Rx] Allergies/Adverse Reactions: 3 Allergy/AdvReac Type Severity Reaction Status Date / Time diazepam [From Valium] AdvReac Muscle Pain Verified 08/24/17 13:50 Date of admission: 08/24/17 19:48 Primary care physician: Amarilis Chi, Consults: 08/26/17 11:28 Consult to Occupational Therapy [CONS] Routine Comment: Evaluate, develop and implement POC Reason for Consult: eval and treat Consult to Physical Therapy [CONS] Routine Comment: Evaluate, develop and implement POC Reason for Consult: eval and treat 08/28/17 08:10 Consult to Invasive Line Access Team [CONS] Routine Reason for Consult: Picc Line Insertion Line Type: PICC PICC line indications: Parental nutrition Time Notified: 08:10 Call Completed: Yes 08/28/17 08:12 consult to digital marketing project manager [Consult to Nutrition] [CONS] Stat Comment: Total IVF (MIV and TPN) to TPN goal Consulting Provider: NUTRITION Reason for Dietary Consult: TPN Start and Manage Discharging clinician: Chrissy Zhang Labs on day of discharge: Labs from last 24 hours 09/06/17 09/05/17 09/05/17 00:15 16:35 10:55 POC Glucose 83 91 H 108 H 09/05/17 07:40 POC Glucose 117 H - Impressions ITS Impressions Chest X-Ray 08/28/17 11:53 IMPRESSION: Left-sided PICC line in good position. Left basilar atelectasis versus pneumonia and adjacent small left pleural effusion. D/ / Daniel Rosario MD / Daniel Rosario MD Interpreting Provider: Daniel Rosario MD Chest/Abdomen X-ray 08/31/17 15:45 IMPRESSION: 1. Stable small left pleural effusion with associated atelectasis or consolidation. 2. Few scattered nonspecific air-fluid levels in the upper abdomen, possibly representing a functional ileus. D/ / 08/31/2017 16:44:47 Dimitri Salazar MD / ge Interpreting Provider: Dimitri Salazar MD - Patient Status Disposition: Transfer Intermediate Care Fac Condition: Fair Overall status at discharge: patient is progressing back to baseline - Discharge Instructions Instructions: Ileostomy Care (DC), Colectomy (DC), Bacterial Pneumonia (DC) Follow Up With: Deo,Patricia A, [employer] [Advanced Practice Nurse] - 09/14/17 9:45 am Additional Instructions: 1. No pushing, pulling, or lifting greater than 15 lbs for 4 weeks (depending upon procedure). 2. You may shower beginning today, but no tub baths, soaking, or swimming for 2 weeks. 3. You may resume driving when you are off narcotics and are safe to react in a car. 4. Take ibuprofen every 8 hours for discomfort. If this does not relieve discomfort, you may take the as needed Percocet. Take narcotics as directed. Do not take more narcotics then directed and do not share your narcotics with any other person. Do not drink alcohol while on narcotics. 5. Take stool softeners (Colace) or a water based laxative (Miralax) while taking narcotics. You may hold for loose stools. 6. Report any fevers greater than 100.5F, increase abdominal discomfort, drainage that looks like pus, increased redness or pain at the surgical site, or any vomiting. 7. Report any pain in the calves, shortness of breath, or rapid heartbeat. 8. Follow-up in the office as directed. 9. If you were prescribed antibiotics, do not stop them without talking to your provider. - Diet and Activity Activity: increase activity as tolerated Diet: advance to your usual diet <Luis Hudson - Last Filed: 09/08/17 08:47> Date of Encounter: 09/06/17 General Surgery Exam Initial Vital Signs Temp Pulse Resp BP Pulse Ox 98.2 F 95 16 133/83 97 08/24/17 13:02 08/24/17 13:02 08/24/17 13:02 08/24/17 13:02 08/24/17 13:02 - Hospital Course Hospital course: Ms. Blackman is a 81 year old female - Time Spent with Patient Total time spent providing and/or coordinating discharge services: Date of admission: 08/24/17 19:48 Primary care physician: Amarilis Chi, Consults: 08/26/17 11:28 Consult to Occupational Therapy [CONS] Routine Comment: Evaluate, develop and implement POC Reason for Consult: eval and treat Consult to Physical Therapy [CONS] Routine Comment: Evaluate, develop and implement POC Reason for Consult: eval and treat 08/28/17 08:10 Consult to Invasive Line Access Team [CONS] Routine Reason for Consult: Picc Line Insertion Line Type: PICC PICC line indications: Parental nutrition Time Notified: 08:10 Call Completed: Yes 08/28/17 08:12 consult to digital marketing project manager [Consult to Nutrition] [CONS] Stat Comment: Total IVF (MIV and TPN) to TPN goal Consulting Provider: NUTRITION Reason for Dietary Consult: TPN Start and Manage - Impressions ITS Impressions Chest X-Ray 08/28/17 11:53 IMPRESSION: Left-sided PICC line in good position. Left basilar atelectasis versus pneumonia and adjacent small left pleural effusion. D/ / Daniel Rosario MD / Daniel Rosario MD Interpreting Provider: Daniel Rosario MD Chest/Abdomen X-ray 08/31/17 15:45 IMPRESSION: 1. Stable small left pleural effusion with associated atelectasis or consolidation. 2. Few scattered nonspecific air-fluid levels in the upper abdomen, possibly representing a functional ileus. D/ / 08/31/2017 16:44:47 Dimitri Salazar MD / ge Interpreting Provider: Dimitri Salazar MD - Attending Attestation I examined this patient and my medical decision-making was reviewed with the Resident Physician. I agree with the documented findings, disposition and treatment plan as described except to the extent set forth below. The patient is seen and evaluated on rounds with the resident. Her care is discussed with the clinical nurse practitioner. She is awaiting discharge from placement an extended care facility. As soon as the insurance issues are resolved, the patient can be discharged Luis Hudson MD FACS
[2017-09-06 10:16] LABS: Basophils # 0.1 K/mcL (0.0-0.2); Basophils % 0.6 %; Eosinophils # 0.4 K/mcL (0.0-0.6); Eosinophils % 3.2 %; Hematocrit 35.5 % (35.3-44.9); Hemoglobin 10.3 g/dL (11.5-15.4); Immature Granulocytes % 1.8 % (0-4); Lymphocytes # 0.7 K/mcL (0.6-4.6); Lymphocytes % 5.4 %; Mean Corpuscular Hemoglobin 24.3 pg (28.0-33.3); Mean Corpuscular Volume 83.7 fL (83.0-100.0); Mean Platelet Volume 10.6 fL (9.4-12.4); Monocytes # 0.9 K/mcL (0.0-1.3); Monocytes % 7.5 %; Neutrophils # 9.8 K/mcL (1.6-8.9); Platelet Count 563 K/mcL (140-400); Red Blood Count 4.24 M/mcL (3.82-4.97); Red Cell Distribution Width 17.9 % (11.5-14.5); Segmented Neutrophils % 81.5 %
[2017-09-06 10:17] LABS: BUN/Creatinine Ratio 28 (6-26); Blood Urea Nitrogen 17 mg/dL (8-23); Calcium 8.9 mg/dL (8.6-10.3); Carbon Dioxide 30 mEq/L (23-29); Chloride 100 mEq/L (98-107); Glucose 135 mg/dL (70-105); Osmolality,Calculated 286 (280-300); Potassium 4.4 mEq/L (3.5-5.1); Sodium 136 mEq/L (136-145); eGFR For African Americans > 60 (> 60); eGFR For Non-African Americans > 60 (> 60)
--- NOTE | 2017-09-06 11:36 | Physician Discharge Referral ---
ExtendedCare Referral Info Provider in Charge after Transfer: PCP Institutional Level of Care: Intermediate - Diagnosis (1) S/P colectomy Priority: Primary Status: Acute (2) Ileostomy care Priority: Secondary Status: Acute (3) Leukocytosis Priority: Secondary Status: Resolved (4) Protein malnutrition Priority: Secondary Status: Acute (5) DVT prophylaxis Priority: Secondary Status: Acute - Transfer Medications Prescriptions: OxyCODONE/APAP 10/325 [Percocet 10/325 MG] 1 each PO Q6HR PRN 6 Days #24 tablet PRN Reason: Pain Ibuprofen [Motrin] 600 mg PO Q8HR PRN #30 tab PRN Reason: Pain Docusate [Colace] 100 mg PO BID PRN #30 capsule PRN Reason: Constipation levoFLOXacin [Levaquin] 500 mg PO DAILY 6 Days #6 tablet Home Medications: Cholecalciferol (Vitamin D3) [Vitamin D3] 1,000 unit PO DAILY 02/13/15 [History] Cinnamon Bark [Cinnamon] 1,000 mg PO DAILY 02/13/15 [History] Cyanocobalamin (Vitamin B-12) [Vitamin B-12] 100 mcg PO DAILY 02/13/15 [History] Flaxseed Oil 1,000 mg PO BID 02/13/15 [History] Garlic 2,000 mg PO DAILY 02/13/15 [History] Lisinopril [Zestril] 2.5 mg PO DAILY 02/13/15 [History] Levothyroxine [Synthroid] 25 mcg PO QAM 06/01/15 [History] Calcium Carbonate [Calcium] 1,200 mg PO BID 03/17/16 [History] Vitamin A Palmitate [Vitamin A] 10,000 unit PO DAILY 03/17/16 [History] Furosemide [Lasix] 20 mg PO BID #60 tablet 05/02/16 [Rx] Simvastatin [Zocor] 20 mg PO HS #90 tablet 06/15/16 [Rx] Guaifenesin [Mucinex] 600 mg PO BID PRN 08/30/16 [History] Clopidogrel Bisulfate [Plavix] 75 mg PO DAILY #30 tablet 12/08/16 [Rx] Digoxin [Lanoxin] 0.125 mg PO DAILY #30 tablet 12/08/16 [Rx] Omeprazole [PriLOSEC] 40 mg PO BIDAC #30 capsule. 07/24/17 [Rx] Metoprolol Succinate [Toprol Xl] 100 mg PO DAILY 08/24/17 [History] Docusate [Colace] 100 mg PO BID PRN #30 capsule 09/06/17 [Rx] Ibuprofen [Motrin] 600 mg PO Q8HR PRN #30 tab 09/06/17 [Rx] OxyCODONE/APAP 10/325 [Percocet 10/325 MG] 1 each PO Q6HR PRN 6 Days #24 tablet 09/06/17 [Rx] levoFLOXacin [Levaquin] 500 mg PO DAILY 6 Days #6 tablet 09/06/17 [Rx] Allergies/Adverse Reactions: 3 Allergy/AdvReac Type Severity Reaction Status Date / Time diazepam [From Valium] AdvReac Muscle Pain Verified 08/24/17 13:50 - Respiratory Orders Smoking Cessation: Smoking cessation has been advised. For more information, call the [place] Tobacco Quit Line at 3-951-CHLW-NOW. - Mobility Orders Ambulate (Ambulate with assistance and increase activity as tolerated. Encourage getting out of the bed and into the chair at least 3 times a day.) - Rehabiliation Orders Rehab Potential: Good - Diet Orders Regular CERTIFICATION: I certify that the transfer of the above named patient to an Extended Care Facility is necessary for the continuing treatment of the diagnosis listed. The above information is true and accurate reflection of patient's current condition. Confidential - Redisclosure prohibited without a patient's written consent.
[2017-09-07] MEDS: Levothyroxine 25 MCG TABLET PO SCH (05:35)
[2017-09-07] MEDS: *HR* Heparin 5,000 UNIT/ML VIAL SQ SCH ×2 (05:35→17:13)
[2017-09-07] MEDS: levoFLOXacin 500 MG TABLET PO SCH (08:52)
[2017-09-07] MEDS: Metoprolol XL (24 HR) Succ 50 MG TAB.ER.24H PO SCH (08:52)
[2017-09-07] MEDS: Furosemide 20 MG TABLET PO SCH ×2 (08:52→17:13)
[2017-09-07] MEDS: *HR* Digoxin 0.125 MG TABLET PO SCH (08:52)
[2017-09-07] MEDS: (Cinnamon Bark [Cinnamon] 1,000 MG) PO SCH (08:52)
[2017-09-07] MEDS: Cholecalciferol (D-3) 1,000 UNIT TABLET PO SCH (08:52)
[2017-09-07] MEDS: CYANOCOBALAMIN 100 MCG PO SCH (08:52)
[2017-09-07] MEDS: GARLIC 2000 MG PO SCH (08:53)
[2017-09-07] MEDS: FLAXSEED OIL 1000 MG PO SCH ×2 (08:53→20:38)
[2017-09-07] MEDS: (Vitamin A Palmitate [Vitamin A] 10,000 UNIT) PO SCH (08:53)
[2017-09-08] MEDS: Levothyroxine 25 MCG TABLET PO SCH (06:34)
[2017-09-08] MEDS: *HR* Heparin 5,000 UNIT/ML VIAL SQ SCH (06:34)
[2017-09-08 07:12] VITALS: BP 125/81
[2017-09-08] MEDS: levoFLOXacin 500 MG TABLET PO SCH (07:49)
[2017-09-08] MEDS: Cholecalciferol (D-3) 1,000 UNIT TABLET PO SCH (07:50)
[2017-09-08] MEDS: Metoprolol XL (24 HR) Succ 50 MG TAB.ER.24H PO SCH (07:51)
[2017-09-08] MEDS: *HR* Digoxin 0.125 MG TABLET PO SCH (07:51)
[2017-09-08] MEDS: Furosemide 20 MG TABLET PO SCH (07:51)
[2017-09-08] MEDS: CYANOCOBALAMIN 100 MCG PO SCH (07:54)
[2017-09-08] MEDS: FLAXSEED OIL 1000 MG PO SCH (07:55)
[2017-09-08] MEDS: GARLIC 2000 MG PO SCH (07:55)
[2017-09-08] MEDS: (Cinnamon Bark [Cinnamon] 1,000 MG) PO SCH (07:55)
[2017-09-08] MEDS: (Vitamin A Palmitate [Vitamin A] 10,000 UNIT) PO SCH (07:56)
== END 2017-09-08 11:38 | DRG 330 ==
LOC: SAMDAY 12:42 → 3ANU 19:48
PROVIDERS: ADMIT Surgery; ATTEND Surgery